=== PATIENT | female | born 1970 | race Caucasian/White ===

== ENCOUNTER → 2017-10-09 | Outpatient (CLI) | payer OTHER, SELFPAY ==
[2017-10-10 09:02] LABS: RUBELLA IgG QUALITATIVE IMMUNE (IMMUNE)
[2017-10-11 08:06] LABS: RUBEOLA IgG ANTIBODY <25.0 AU/mL (Immune >29.9)
== END ==
LOC: M WUC 18:03
DX: Z02.1 Encounter for pre-employment examination (principal)
CPT/HCPCS: 86762

== ENCOUNTER → 2018-05-08 | Outpatient (CLI) | payer OTHER ==
--- NOTE | 2018-05-08 20:02 | REP ---
CHEST, TWO VIEWS: Two views of the chest are performed without priors for comparison. There is no acute infiltrate identified. Possible 1 cm ill-defined nodular density is seen anteriorly and inferiorly on the lateral view. The heart is normal in size and the mediastinal silhouette is unremarkable. Visualized osseous structures are unremarkable. IMPRESSION: No acute infiltrate. Possible nodule anteriorly and inferiorly on the lateral view. Recommend CT of the chest. Electronically Signed by Nehemias Aguilar MD 05/09/2018 12:33 A
== END ==
LOC: M LRY 19:18
PROVIDERS: ATTEND Nurse Practitioner Family
DX: R05 Cough (principal)

== ENCOUNTER → 2018-07-17 | Outpatient (REF) | payer OTHER, MEDICAID ==
[2018-07-17 13:29] LABS: BASO # 0.1 10^3/uL (0.0-0.2); BASO % 0.5 % (0.0-1.0); EOS # 0.2 10^3/uL (0.0-0.50); EOS % 2.6 % (0.0-3.0); HEMOGLOBIN 15.4 g/dl (12.0-15.5); LYMPH # 1.8 10^3/uL (1.5-4.5); MEAN CORPUSCULAR HGB CONC 32.8 g/dl (32.0-36.5); MEAN CORPUSCULAR VOLUME 91.6 fl (80.0-96.0); MONO # 0.7 10^3/uL (0.0-0.8); MONO % 8.1 % (0.0-5.0); NEUTROPHILS # 6.3 10^3/uL (1.8-7.7); NEUTROPHILS % 68.4 % (36.0-66.0); PLATELET COUNT, AUTOMATED 200 10^3/uL (150-450); RED BLOOD COUNT 5.13 10^6/uL (4.00-5.40); WHITE BLOOD COUNT 9.2 10^3/uL (4.0-10.0)
[2018-07-17 13:30] LABS: APPEARANCE, URINE HAZY (CLEAR); BACTERIA, URINE AUTO 1+ (NEGATIVE); BILIRUBIN, URINE AUTO NEGATIVE (NEGATIVE); BLOOD, URINE BLOOD NEGATIVE (NEGATIVE); COLOR, URINE YELLOW (YELLOW); GLUCOSE, URINE (UA) AUTO NEGATIVE (NEGATIVE); KETONE, URINE AUTO NEGATIVE (NEGATIVE); LEUKOCYTE ESTERASE, URINE AUTO NEGATIVE (NEGATIVE); MUCUS, URINE SMALL (NEGATIVE); NITRITE, URINE AUTO NEGATIVE (NEGATIVE); PROTEIN, URINE AUTO NEGATIVE (NEGATIVE); RBC, URINE AUTO 3 /HPF (0-3); SPECIFIC GRAVITY URINE AUTO 1.015 (1.002-1.035); SQUAMOUS EPITHELIAL CELL UR AU 5 /HPF (0-6); UROBILINOGEN, URINE AUTO 0.2 mg/dL (0.0-2.0); WBC, URINE AUTO 1 /HPF (0-3)
[2018-07-17 13:40] LABS: ALBUMIN 4.3 GM/DL (3.2-5.2); ALT/SGPT 29 U/L (12-78); BILIRUBIN,TOTAL 0.5 MG/DL (0.2-1.0); BLOOD UREA NITROGEN 9 MG/DL (7-18); CALCIUM LEVEL 8.8 MG/DL (8.5-10.1); CARBON DIOXIDE LEVEL 27 MEQ/L (21-32); CHLORIDE LEVEL 104 MEQ/L (98-107); CHOLESTEROL LEVEL 320 MG/DL (<200); CHOLESTEROL RISK RATIO 4.571 (<5); FREE T4 0.83 NG/DL (0.76-1.46); GLOMERULAR FILTRATION RATE > 60.0 (>58); GLUCOSE, FASTING 108 MG/DL (70-100); HDL CHOLESTEROL 70 MG/DL (>40); LDL CHOLESTEROL 220 MG/DL (<100); NON-HDL-C 250 MG/DL; POTASSIUM SERUM 3.3 MEQ/L (3.5-5.1); SODIUM LEVEL 136 MEQ/L (136-145); THYROID STIMULATING HORMONE 0.787 uIU/ML (0.358-3.740); TOTAL PROTEIN 7.5 GM/DL (6.4-8.2); TRIGLYCERIDES LEVEL 150 MG/DL (<150)
[2018-07-17 13:41] LABS: TOTAL 25(OH) VITAMIN D 60.8 NG/ML (30.0-100.0)
[2018-07-17 14:15] LABS: HEMOGLOBIN A1c 5.8 %
[2018-07-19 00:06] LABS: Lyme Disease IgG/IgM Antibodie <0.91 ISR (0.00-0.90); Lyme Disease IgM Ab Quantitati <0.80 index (0.00-0.79)
== END ==
LOC: M LAB REF 12:25
PROVIDERS: ATTEND Family Medicine
DX: Z12.11 Encounter for screening for malignant neoplasm of colon (principal)

== ENCOUNTER → 2019-07-15 | Outpatient (REF) ==
[~2019-07-15] MED LIST: CETI-24; DULO1CAP5 PO; FURO20TA2; HYDR50TA70; METH20TA29; MONT10TA10; TIZA4TAB4; ZOFR4TAB16 PO
[2019-07-16 14:16] LABS: RUBEOLA IgG ANTIBODY 13.8 AU/mL (Immune >16.4)
== END ==
LOC: M LAB 14:25
PROVIDERS: ATTEND Nurse Practitioner Adult Health
DX: Z00.00 Encounter for general adult medical examination without abnormal findings (principal)

== ENCOUNTER → 2019-12-01 | Outpatient (REF) | payer OTHER, MEDICAID ==
[2019-12-01 17:40] LABS: FOLLICLE STIMULATING HORMONE 65.3 mIU/mL; LUTEINIZING HORMONE 39.6 mIU/mL; PROGESTERONE 0.21 NG/ML
== END ==
LOC: M LAB REF 15:49
PROVIDERS: ATTEND Physician Assistant
DX: N95.8 Other specified menopausal and perimenopausal disorders (principal); N92.6 Irregular menstruation, unspecified

== ENCOUNTER 2020-03-16 02:26 | Emergency (ER) | payer MEDICAID, OTHER ==
[~2020-03-16] VITALS: Ht 162.6 cm; Wt 71.5 kg
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
--- OUTSIDE RECORDS SUMMARY | 2020-03-16 02:30 | CCD ---
Author Organization Unknown Address [address] [place] [address] Phone [phone] Care Team Providers Care Crime Scene Investigator Name Role Phone Rodreick Winters Unavailable Unavailable Allergies Code Code System Name Reaction Severity Status Onset Duloxetine Hcl Active 10/08/2019 Medications Name Status Start Date Stop Date albuterol sulfate 2.5 mg/3 mL (0.083 %) solution for nebulizatio n Active Not available albuterol sulfate HFA 90 mcg/actuation aerosol inhaler Active Not available azithromycin 250 mg tablet TAKE 1 TABLET BY MOUTH ONCE A DAY Completed 03/12 cetirizine 10 mg tablet TAKE 1 TABLET BY MOUTH DAILY Active Not availa ble Comp-Air Nebulizer Compressor Active No t available dexamethasone 4 mg tablet Completed 2020 doxycycline hyclate 100 mg tablet Completed 03/12/2020 duloxetine 30 mg capsule,delayed release Active Not available duloxetine 60 mg capsule,delayed release Active Not available furosemide 20 mg tablet TAKE ONE TABLET BY MOUTH EVERY DAY Active Not available hydroxyzine HCl 50 mg tablet TAKE TWO TABLETS BY MOUTH ONCE DAILY AT BEDTIME Active Not available Ingrid 03/24 () 1 mg-20 mcg tablet Active Not available levofloxacin 500 mg tablet TAKE ONE TABLET BY MOUTH ONCE DAILY DIRECTED Completed 03/12/2020 methylphenidate 20 mg tablet TAKE ONE TABLET BY MOUTH TWICE A DAY MAXIMUM DAILY DOSE 2 TABLETS Active Not available montelukast 10 mg tablet Active Not adelaida ilable nabumetone 750 mg tablet Active Not adelaida ilable Nicotrol 10 mg inhalation cartridge USE 1 CARTRIDGE UP TO 16 TIMES A DAY NEEDED Active Not available prednisone 20 mg tablet Completed 03/12/19 tizanidine 4 mg tablet TAKE ONE TABLET BY MOUTH EVERY 6 HOURS Active Not available Problems Name Status Onset Date Source [place] [facility] Lung Active 06/25/2018 History Breast Neoplasm Screening Status Active 06/25/2018 History Tobacco Dependence Caused by Cigarettes Active 06/26/19 19 History Screening Procedure Active 06/25/[address] Concept Active 06/25/2018 History Generalized Anxiety Disorder Active 08/01/2018 His tory Attention Deficit Hyperactivity Disorder Active 019 History Allergic Rhinitis Active 10/11/2018 History Asthma Active 10/11/2018 History Hypertensive Disorder Active 07/14/2019 History Fibromyalgia Active 07/14/2019 History Prediabetes Active 07/14/2019 History Tobacco Use and Exposure - Finding Active 07/24/2019 History Exposure to Second Hand Tobacco Smoke Active 07/24/2019 History Heart Murmur Active 08/01/2019 History Body Measurement Finding Active 08/01/2019 History Finding of Regularity of Menstrual Cycle Active 020 History Migraine with Aura Active 08/15/2019 History Pneumonia Caused by gram Positive Bacteria Active 09/30 History Polyalgia Active 10/08/2019 History Dyspnea Active 10/08/2019 History Procedures Notes: tube removal, ankle casting, left ring finger sx, Results Lab Results None recorded. Past Encounters 03/12/2020 Abdominal Pain Isidra Noel, RPA-C: [address] [facility], [facility] [address], [place] [address], Ph. Social History Tobacco Smoking Status Heavy Tobacco Smoker (1/2 PPD) Vaccine List None recorded. Plan of Care Reminders Provider Appointments None recorded. Lab None recorded. Referral None recorded. Procedures None recorded. Surgeries None recorded. Imaging None recorded. Vitals 03/12/2020 09:10AM ESTABLISHED [id number] Height Weight BMI Blood Pressure 64 in 151 lbs 16 oz 26.1 kg/m2 144/90 mm[Hg] 10/08/2019 Height Weight Blood Pressure 64 in 148 lbs 2.08 oz 139/86 mm[Hg] 10/01/2019 Height Weight Blood Pressure 64 in 140 lbs 6.08 oz (1) 157/84 mm[Hg] (2) 155/84 mm[Hg] 08/15/2019 Height Weight Blood Pressure 64 in 136 lbs 6.08 oz (1) 154/98 mm[Hg] (2) 146/101 mm[Hg] 08/01/2019 Height Weight Blood Pressure 64 in 144 lbs 2.08 oz 126/80 mm[Hg] 07/14/2019 Height Weight Blood Pressure 64 in 142 lbs 2.08 oz 147/83 mm[Hg] 10/11/2018 Height Weight Blood Pressure 64 in 148 lbs 145/88 mm[Hg] 06/25/2018 Height Weight Blood Pressure 64 in 151 lbs 2.08 oz 130/77 mm[Hg]
--- OUTSIDE RECORDS SUMMARY | 2020-03-16 02:31 | CCD ---
Author Organization Unknown Address [address] [place] [address] Phone [phone] Care Team Providers Care Glaze Handler Name Role Phone Roderick Winters Unavailable Unavailable Allergies Code Code System [...] ONCE DAILY AT BEDTIME Active Not available Ingrdi 03/24 () 1 mg-20 mcg tablet Active [...] available Problems Name Status Onset Date Source [place] [facility] Lung Active 06/25/2018 History Breast [...] 03/12/2020 Abdominal Pain Isidra Noel, RPA-C: [address] [facility], [facility] [address], [place] [address], Ph. Social History Tobacco Smoking Status Heavy Tobacco Smoker (1/2 PPD) Vaccine List None recorded. Plan of Care Reminders Provider Appointments None recorded. Lab None recorded. Referral None recorded. Procedures None recorded. Surgeries None recorded. Imaging None recorded. Vitals 03/12/2020 09:10AM ESTABLISHED [id number] Height Weight BMI Blood Pressure 64 in [...]
--- OUTSIDE RECORDS SUMMARY | 2020-03-16 02:31 | CCD | Continuity of Care Document ---
Author Author [facility] Organization [facility] Address [address] [place] [address] Phone Care Team Providers Care Agriculture Internship Name Role Phone CANDE OCHOA PCP Allergies, Adverse Reactions, Alerts No allergy information available. Medications No medication information available. Problems No problem information available. Procedures No procedure information available. Relevant Diagnostic Tests and/or Laboratory Data Laboratory Results Test Date/Time Result Interpretation Reference Range Result Co mment Performing Site Coronavirus (COVID-19)(PCR) January 16, 2020 5:09pm NEGATIVE NEGATIVE Negative results should be treated as presumptive and, ifinconsistent with clinical signs and symptoms or necessaryfor patient management, should be tested with differentauthorized or cleared molecular tests.Negative results do not preclude SARS-CoV-2 infection andshould not be used as the sole basis for patient managementdecisions.This is a rapid molecular in vitro diagnostic test utilizingan isothermal nucleic acid amplification technology intendedfor the qualitative detection of nucleic acid from the SARS-CoV-2 viral RNA in direct nasal, nasopharyngeal orthroat swabs from individuals who are suspected of COVID-19.Results are for the indentification of SARS-CoV-2 RNA. [id number] RNA is generally detectable in respiratorysamples during the actue phase of infection. [facility] Main Lab, [address] [facility] [address] Health Concerns No known health concerns documented Chief Complaint and Reason for Visit Reason for Visit SHORTNESS OF BREATH,LOSS OF TASTE Encounters Encounter Location(s) Arrival/Admit Date Discharge/Depart Date Provider(s) [facility] January 16, 2020 5:04p m January 16, 2020 6:29pm LANCE MARSHALL [facility] December 13, 2019 6:27am December 13, 2019 7:00am ELVIE DORMAN JR Assessments No Assessments Information Available Functional Status No Functional Status information available Goals No Goals Information Available Immunizations No Immunization Information Available Mental Status No Mental Status Information Available Medical Equipment No Medical Equipment Information available Insurance Providers Guarantor MARIA G LEWIS Address [address] [place] [address] Contact Info. Home Phone: Payer Policy Id Coverage Id Subscriber's Name Subscriber Id Effect haris Date Expiration Date [employer] MEDICAID [id number] MARIA G LEWIS Social History Assigned Sex Female Vital Signs No vital signs result information available.
--- OUTSIDE RECORDS SUMMARY | 2020-03-16 02:31 | CCD | Continuity of Care Document ---
Author Author [facility] Address [address] [place] [address] Phone Care Team Providers Care Analysis Engineer Name Role Phone CANDE OCHOA PCP Allergies, Adverse Reactions, Alerts No allergy information available. Medications No medication information available. Problems No problem information available. Procedures Procedure Date Performed Status ABDOMEN LIMITED March 12, 2020 completed Relevant Diagnostic Tests and/or Laboratory Data Laboratory Results Test Date/Time Result Interpretation Reference Range Result Co mment Performing Site White Blood Count March 12, 2020 6:46am 10.4 4.0-10. 0 [facility] Main Lab, [address] [place] [address] Red Blood Count March 12, 2020 6:46am 4.44 4.00-5.50 [facility] Main Lab, [address] [place] [address] Hemoglobin March 12, 2020 6:46am 12.5 12.0-16.0 [facility] Main Lab, [address] [place] [address] Hematocrit March 12, 2020 6:46am 38.9 36.0-48.8 [facility] Main Lab, [address] [place] [address] Mean Corpuscular Volume March 12, 2020 6:46am 87.6 8 0-96 [facility] Main Lab, [address] [place] [address] Mean Corpuscular Hemoglobin March 12, 2020 6:46am 28.2 27.0-31.0 [facility], [address] [place] [address] Mean Corpuscular Hgb Concent Diff March 12, 2020 6:46am 32.1 32.0-36.0 [facility] Main Lab, [address] [facility] [address] Red Cell Distribution Width March 12, 2020 6:46am 14.9 10.0-14.5 [facility] Main Lab, [address] [facility] [address] Platelet Count March 12, 2020 6:46am 236 172-450 [facility] Main Lab, [address] [facility] [address] Mean Platelet Volume March 12, 2020 6:46am 10.7 9.0- 13.0 [facility] Main Lab, [address] [facility] [address] Granulocytes % (Auto) March 12, 2020 6:46am 57.1 50- 80.0 [facility] Main Lab, [address] [address] Immature Granulocytes % March 12, 2020 6:46am 0.2 0 .0-0.2 [facility] Main Lab, [address] [facility] [address] Lymphocytes % March 12, 2020 6:46am 32.1 25.0-50.0 [facility] Main Lab, [address] [facility] [address] Monocytes % March 12, 2020 6:46am 8.3 2.0-10.0 [facility] Main Lab, [address] [facility] [address] Eosinophils % March 12, 2020 6:46am 2.0 0-5.0 [facility] Main [facility], [address] [facility] [address] Basophils % March 12, 2020 6:46am 0.3 0.0-2.0 [facility], [address] [facility] [address] Granulocytes # March 12, 2020 6:46am 6.0 2.0-8.00 [facility] Main [facility], [address] [facility] [address] Immature Granulocytes # March 12, 2020 6:46am 0.0 0 .0-0.2 [facility], [address] [facility] [address] Lymphocytes # March 12, 2020 6:46am 3.3 1.0-5.0 [facility], [address] [facility] [address] Monocytes # March 12, 2020 6:46am 0.9 0.10-1.20 [facility], [address] [facility] [address] Eosinophils # March 12, 2020 6:46am 0.2 0.0-0.5 [facility], [address] [facility] [address] Basophils # March 12, 2020 6:46am 0.0 0.0-0.2 [facility], [address] [facility] [address] Urine Color March 12, 2020 7:20am YELLOW [facility] Lab, [address] [facility] [address] Urine Appearance March 12, 2020 7:20am CLEAR [facility] Lab, [address] [facility] [address] Urine Glucose March 12, 2020 7:20am NEGATIVE NEGATIVE [facility], [address] [facility] [address] Urine Bilirubin March 12, 2020 7:20am NEGATIVE NEGATIVE [facility] Lab, [address] [place] [address] Urine Ketones March 12, 2020 7:20am NEGATIVE NEGATIVE [facility], [address] [place] [address] Specific [place] March 12, 2020 7:20am 1.010 1.001-1. 035 [facility], [address] [place] [address] Urine Blood March 12, 2020 7:20am TRACE NEGATIVE [facility], [address] [place] [address] Urine pH March 12, 2020 7:20am 6.0 5.0-9.0 [facility], [address] [place] [address] Urine Protein March 12, 2020 7:20am NEGATIVE NEGATIVE [facility], [address] [place] [address] Urine Urobilinogen March 12, 2020 7:20am NORMAL(0.2-1) 0- 1 [facility], [address] [place] [address] Urine Nitrite March 12, 2020 7:20am NEGATIVE NEGATIVE [facility], [address] [place] [address] Urine Leukocyte Esterase March 12, 2020 7:20am NEGATIVE NEGATIVE [facility] Lab, [address] [place] [address] Urine Microscopic RBC March 12, 2020 7:20am 0-2 0-3 [facility], [address] [facility] [address] Urine Microscopic WBC March 12, 2020 7:20am 0-2 0-5 [facility], [address] [facility] [address] Urine Epithelial Cells March 12, 2020 7:20am 3+ 0 [facility], [address] [facility] [address] Glucose Level March 12, 2020 6:46am 107 74-106 [facility], [address] [facility] [address] Lactic Acid Level March 12, 2020 6:46am 1.1 0.4-2.0 [facility], [address] [facility] [address] Blood Urea Nitrogen March 12, 2020 6:46am 14 7-18 [facility], [address] [facility] [address] Creatinine March 12, 2020 6:46am 0.80 0.6-1.0 [facility], [address] [facility] [address] Sodium Level March 12, 2020 6:46am 141 136-145 [facility], [address] [facility] [address] Potassium Level March 12, 2020 6:46am 3.8 3.5-5.1 [facility], [address] [facility] [address] Chloride Level March 12, 2020 6:46am 101 98-107 [facility], [address] [facility] [address] Carbon Dioxide Level March 12, 2020 6:46am 28 21-3 2 [facility], [address] [facility] [address] Calcium Level March 12, 2020 6:46am 8.9 8.5-10.1 [facility], [address] [facility] [address] Anion Gap March 12, 2020 6:46am 12.0 5-12 [facility], [address] [facility] [address] Estimated GFR (MDRD) March 12, 2020 6:46am 76 GFR IS CALCULATED IN mL/min/1.73m2 NORMAL FUNCTION: >90MILDLY DECREASED: 60-89MILDY TO MODERATELY DECREASED: 45-59 MODERATELY TO SEVERELY DECREASED: 30-44SEVERELY DECREASED: 15-29RENAL FAILURE: <15 [facility] Lab, [address] [address] Aspartate Amino Transf (AST/SGOT) March 12, 2020 6:46am 33 15-37 [facility] Lab, [address] [place] [address] Alanine Aminotransferase (ALT/SGPT) March 12, 2020 6:46am 37 12-78 [facility], [address] [place] [address] Alkaline Phosphatase March 12, 2020 6:46am 123 46-1 16 [facility], [address] [place] [address] Total Bilirubin March 12, 2020 6:46am 0.5 0.2-1.0 [facility], [address] [address] Total Protein March 12, 2020 6:46am 7.1 6.4-8.2 [facility] Lab, [address] [place] [address] Albumin March 12, 2020 6:46am 3.9 3.4-5.0 [facility], [address] [place] [address] Lipase March 12, 2020 6:46am 106 73-393 [facility], [address] [address] Troponin I March 12, 2020 6:46am < 0.017 0.0-0.056 [facility], [address] [place] [address] Coronavirus (COVID-19)(PCR) March 12, 2020 8:14am NEGATIVE NEGATIVE Negative results should be treated [...] are for the indentification of SARS-CoV-2 RNA. [id number] RNA is generally detectable in respiratorysamples during the actue phase of infection. [facility] Lab, [address] [address] Health Concerns No known health concerns documented Chief Complaint and Reason for Visit Reason for Visit ABDOMINAL PAIN,NAUSEA Encounters Encounter Location(s) Arrival/Admit Date Discharge/Depart Date Provider(s) [facility] March 12, 2020 6:04am March 12, 2020 12:00pm TIARA MYERS [facility] January 16, 2020 5:04p m January 16, 2020 6:29pm LANCE MARSHALL [facility] December 13, 2019 6:27am December 13, 2019 7:00am ELVIE DORMAN JR Assessments No Assessments Information Available Functional Status No Functional Status information available Goals No Goals Information Available Immunizations No Immunization Information Available Mental Status No Mental Status Information Available Medical Equipment No Medical Equipment Information available Insurance Providers Guarantor MARIA G LEWIS Address [address] [place] [address] Contact Info. Home Phone: Payer Policy Id Coverage Id Subscriber's Name Subscriber Id Effect haris Date Expiration Date [employer] MEDICAID [id number] MARIA G LEWIS Social History Assigned Sex Female Vital Signs No vital signs result information available.
--- OUTSIDE RECORDS SUMMARY | 2020-03-16 02:32 | CCD ---
Author Author [facility] Organization [facility] Address Unknown Phone Unavailable Care Team Providers Care Cake Wringer Name Role Phone PETROFF, TIARA PA Unavailable Unavailable PETROFF, TIARA PA Unavailable Unavailable PETROFF, TIARA PA Unavailable Unavailable PETROFF, TIARA PA Unavailable Unavailable PETROFF, TIARA PA Unavailable Unavailable PETROFF, TIARA PA Unavailable Unavailable PETROFF, TIARA PA Unavailable Unavailable PETROFF, TIARA PA Unavailable Unavailable SYMENOW, G CHRISTOPHER PA Unavailable Unavailable SYMENOW, G CHRISTOPHER PA Unavailable Unavailable SYMENOW, G CHRISTOPHER PA Unavailable Unavailable SYMENOW, G CHRISTOPHER PA Unavailable Unavailable SYMENOW, G CHRISTOPHER PA Unavailable Unavailable SYMENOW, G CHRISTOPHER PA Unavailable Unavailable SYMENOW, G CHRISTOPHER PA Unavailable Unavailable SYMENOW, G CHRISTOPHER PA Unavailable Unavailable SYMENOW, G CHRISTOPHER PA Unavailable Unavailable SYMENOW, G CHRISTOPHER PA Unavailable Unavailable SYMENOW, G CHRISTOPHER PA Unavailable Unavailable SYMENOW, G CHRISTOPHER PA Unavailable Unavailable SYMENOW, G CHRISTOPHER PA Unavailable Unavailable SYMENOW, G CHRISTOPHER PA Unavailable Unavailable SYMENOW, G CHRISTOPHER PA Unavailable Unavailable SYMENOW, G CHRISTOPHER PA Unavailable Unavailable SYMENOW, G CHRISTOPHER PA Unavailable Unavailable THOMPSONKATHERIN RPA-C Unavailable Unavailable THOMPSONKATHERIN RPA-C Unavailable Unavailable THOMPSON, KATHERIN RUBIO RPA-C Unavailable Unavailable THOMPSON, KATHERIN RUBIO RPA-C Unavailable Unavailable THOMPSON, KATHERIN RUBIO RPA-C Unavailable Unavailable THOMPSON, KATHERIN RUBIO RPA-C Unavailable Unavailable THOMPSON, KATHERIN RUBIO RPA-C Unavailable Unavailable THOMPSON, KATHERIN RUBIO RPA-C Unavailable Unavailable THOMPSON, KATHERIN RUBIO RPA-C Unavailable Unavailable THOMPSON, KATHERIN RUBIO RPA-C Unavailable Unavailable THOMPSON, KATHERIN RUBIO RPA-C Unavailable Unavailable THOMPSON, KATHERIN RUBIO RPA-C Unavailable Unavailable THOMPSON, KATHERIN RUBIO RPA-C Unavailable Unavailable THOMPSON, KATHERIN RUBIO RPA-C Unavailable Unavailable THOMPSON, KATHERIN RUBIO RPA-C Unavailable Unavailable THOMPSON, KATHERIN RUBIO RPA-C Unavailable Unavailable THOMPSON, KATHERIN RUBIO RPA-C Unavailable Unavailable THOMPSON, KATHERIN RUBIO RPA-C Unavailable Unavailable THOMPSON, KATHERIN RUBIO RPA-C Unavailable Unavailable THOMPSON, KATHERIN RUBIO RPA-C Unavailable Unavailable THOMPSON, KATHERIN RUBIO RPA-C Unavailable Unavailable THOMPSON, KATHERIN RUBIO RPA-C Unavailable Unavailable THOMPSON, KATHERIN RUBIO RPA-C Unavailable Unavailable THOMPSON, KATHERIN RUBIO RPA-C Unavailable Unavailable THOMPSON, KATHERIN RUBIO RPA-C Unavailable Unavailable THOMPSON, KATHERIN RUBIO RPA-C Unavailable Unavailable THOMPSON, KATHERIN RUBIO RPA-C Unavailable Unavailable THOMPSON, KATHERIN RUBIO RPA-C Unavailable Unavailable THOMPSON, KATHERIN RUBIO RPA-C Unavailable Unavailable THOMPSON, KATHERIN RUBIO RPA-C Unavailable Unavailable THOMPSON, KATHERIN RUBIO RPA-C Unavailable Unavailable THOMPSON, KATHERIN RUBIO RPA-C Unavailable Unavailable THOMPSON, KATHERIN RUBIO RPA-C Unavailable Unavailable THOMPSON, KATHERIN RUBIO RPA-C Unavailable Unavailable THOMPSON, KATHERIN RUBIO RPA-C Unavailable Unavailable THOMPSON, KATHERIN RUBIO RPA-C Unavailable Unavailable THOMPSON, KATHERIN RUBIO RPA-C Unavailable Unavailable THOMPSON, KATHERIN RUBIO RPA-C Unavailable Unavailable DANIELA, L LUCIANO PA Unavailable Unavailable DANIELA, L LUCIANO PA Unavailable Unavailable DANIELA, L LUCIANO PA Unavailable Unavailable DANIELA, L LUCIANO PA Unavailable Unavailable DANIELA, L LUCIANO PA Unavailable Unavailable DANIELA, L LUCIANO PA Unavailable Unavailable DANIELA, L LUCIANO PA Unavailable Unavailable DANIELA, L LUCIANO PA Unavailable Unavailable DANIELA, L LUCIANO PA Unavailable Unavailable DANIELA, L LUCIANO PA Unavailable Unavailable DANIELA, L LUCIANO PA Unavailable Unavailable DANIELA, L LUCIANO PA Unavailable Unavailable DANIELA, L LUCIANO PA Unavailable Unavailable DANIELA, L LUCIANO PA Unavailable Unavailable DANIELA, L LUCIANO PA Unavailable Unavailable DANIELA, L LUCIANO PA Unavailable Unavailable DANIELA, L LUCIANO PA Unavailable Unavailable DANIELA, L LUCIANO PA Unavailable Unavailable DANIELA, L LUCIANO PA Unavailable Unavailable BLAKE, KRYSTIN PA Unavailable Unavailable BLAKE, KRYSTIN PA Unavailable Unavailable BLAKE, KRYSTIN PA Unavailable Unavailable BLAKE, KRYSTIN PA Unavailable Unavailable BLAKE, KRYSTIN PA Unavailable Unavailable BLAKE, KRYSTIN PA Unavailable Unavailable BLAKE, KRYSTIN PA Unavailable Unavailable BLAKE, KRYSTIN PA Unavailable Unavailable BLAKE, KRYSTIN PA Unavailable Unavailable BLAKE, KRYSTIN PA Unavailable Unavailable BLAKE, KRYSTIN PA Unavailable Unavailable BLAKE, KRYSTIN PA Unavailable Unavailable BLAKE, KRYSTIN PA Unavailable Unavailable BLAKE, KRYSTIN PA Unavailable Unavailable BLAKE, KRYSTIN PA Unavailable Unavailable ROLANDO, LUCIA LANCE PA Unavailable Unavailable ROLANDO, LUCIA LANCE PA Unavailable Unavailable ROLANDO, LUCIA LANCE PA Unavailable Unavailable ROLANDO, LUCIA LANCE PA Unavailable Unavailable ROLANDO, LUCIA LANCE PA Unavailable Unavailable ROLANDO, LUCIA LANCE PA Unavailable Unavailable ROLANDO, LUCIA LANCE PA Unavailable Unavailable ROLANDO, LUCIA LANCE PA Unavailable Unavailable ROLANDO, LUCIA LANCE PA Unavailable Unavailable ROLANDO, LUCIA LANCE PA Unavailable Unavailable ROLANDO, LUCIA LANCE PA Unavailable Unavailable ROLANDO, LUCIA LANCE PA Unavailable Unavailable ROLANDO, LUCIA LANCE PA Unavailable Unavailable ROLANDO, LUCIA LANCE PA Unavailable Unavailable ROLANDO, LUCIA LANCE PA Unavailable Unavailable ROLANDO, LUCIA LANCE PA Unavailable Unavailable ROLANDO, LUCIA LANCE PA Unavailable Unavailable ROLANDO, LUCIA LANCE PA Unavailable Unavailable ROLANDO, LUCIA LANCE PA Unavailable Unavailable ROLANDO, LUCIA LANCE PA Unavailable Unavailable ROLANDO, LUCIA LANCE PA Unavailable Unavailable LETTIERE, A NENO PA Unavailable Unavailable LETTIERE, A NENO PA Unavailable Unavailable LETTIERE, A NENO PA Unavailable Unavailable LETTIERE, A NENO PA Unavailable Unavailable LETTIERE, A NENO PA Unavailable Unavailable LETTIERE, A NENO PA Unavailable Unavailable LETTIERE, A NENO PA Unavailable Unavailable LETTIERE, A NENO PA Unavailable Unavailable LETTIERE, A NENO PA Unavailable Unavailable LETTIERE, A NENO PA Unavailable Unavailable LETTIERE, A NENO PA Unavailable Unavailable LETTIERE, A NENO PA Unavailable Unavailable LETTIERE, A NENO PA Unavailable Unavailable LETTIERE, A NENO PA Unavailable Unavailable LETTIERE, A NENO PA Unavailable Unavailable LETTIERE, A NENO PA Unavailable Unavailable LETTIERE, A NENO PA Unavailable Unavailable LETTIERE, A NENO PA Unavailable Unavailable LETTIERE, A NENO PA Unavailable Unavailable LETTIERE, A NENO PA Unavailable Unavailable LETTIERE, A NENO PA Unavailable Unavailable LETTIERE, A NENO PA Unavailable Unavailable LETTIERE, A NENO PA Unavailable Unavailable LETTIERE, A NENO PA Unavailable Unavailable LETTIERE, A NENO PA Unavailable Unavailable LETTIERE, A NENO PA Unavailable Unavailable LETTIERE, A NENO PA Unavailable Unavailable LETTIERE, A NENO PA Unavailable Unavailable LETTIERE, A NENO PA Unavailable Unavailable THOMPSON, KATHERIN RUBIO RPA-C Unavailable Unavailable THOMPSON, KATHERIN RUBIO RPA-C Unavailable Unavailable THOMPSON, KATHERIN RUBIO RPA-C Unavailable Unavailable THOMPSON, KATHERIN RUBIO RPA-C Unavailable Unavailable THOMPSON, KATHERIN RUBIO RPA-C Unavailable Unavailable THOMPSON, KATHERIN RUBIO RPA-C Unavailable Unavailable THOMPSON, KATHERIN RUBIO RPA-C Unavailable Unavailable THOMPSON, KATHERIN RUBIO RPA-C Unavailable Unavailable THOMPSON, KATHERIN RUBIO RPA-C Unavailable Unavailable THOMPSON, KATHERIN RUBIO RPA-C Unavailable Unavailable THOMPSON, KATHERIN RUBIO RPA-C Unavailable Unavailable THOMPSON, KATHERIN RUBIO RPA-C Unavailable Unavailable THOMPSON, KATHERIN RUBIO RPA-C Unavailable Unavailable THOMPSON, KATHERIN RUBIO RPA-C Unavailable Unavailable THOMPSON, KATHERIN RUBIO RPA-C Unavailable Unavailable THOMPSON, KATHERIN RUBIO RPA-C Unavailable Unavailable THOMPSON, KATHERIN RUBIO RPA-C Unavailable Unavailable THOMPSON, KATHERIN RUBIO RPA-C Unavailable Unavailable THOMPSON, KATHERIN RUBIO RPA-C Unavailable Unavailable THOMPSON, KATHERIN RUBIO RPA-C Unavailable Unavailable THOMPSON, KATHERIN RUBIO RPA-C Unavailable Unavailable THOMPSON, KATHERIN RUBIO RPA-C Unavailable Unavailable THOMPSON, KATHERIN RUBIO RPA-C Unavailable Unavailable THOMPSON, KATHERIN RUBIO RPA-C Unavailable Unavailable THOMPSON, KATHERIN RUBIO RPA-C Unavailable Unavailable THOMPSON, KATHERIN RUBIO RPA-C Unavailable Unavailable THOMPSON, KATHERIN RUBIO RPA-C Unavailable Unavailable THOMPSON, KATHERIN RUBIO RPA-C Unavailable Unavailable THOMPSON, KATHERIN RUBIO RPA-C Unavailable Unavailable THOMPSON, KATHERIN RUBIO RPA-C Unavailable Unavailable THOMPSON, KATHERIN RUBIO RPA-C Unavailable Unavailable THOMPSON, KATHERIN RUBIO RPA-C Unavailable Unavailable THOMPSON, KATHERIN RUBIO RPA-C Unavailable Unavailable THOMPSON, KATHERIN RUBIO RPA-C Unavailable Unavailable THOMPSON, KATHERIN RUBIO RPA-C Unavailable Unavailable THOMPSON, KATHERIN RUBIO RPA-C Unavailable Unavailable THOMPSON, KATHERIN RUBIO RPA-C Unavailable Unavailable THOMPSON, KATHERIN RUBIO RPA-C Unavailable Unavailable ZUKER, B YAIR MD Unavailable Unavailable ZUKER, B YAIR MD Unavailable Unavailable ZUKER, B YAIR MD Unavailable Unavailable ZUKER, B YAIR MD Unavailable Unavailable ZUKER, B YAIR MD Unavailable Unavailable ZUKER, B YAIR MD Unavailable Unavailable ZUKER, B YAIR MD Unavailable Unavailable ZUKER, B YAIR MD Unavailable Unavailable ZUKER, B YAIR MD Unavailable Unavailable ZUKER, B YAIR MD Unavailable Unavailable ZUKER, B YAIR MD Unavailable Unavailable ZUKER, B YAIR MD Unavailable Unavailable ZUKER, B YAIR MD Unavailable Unavailable ZUKER, B YAIR MD Unavailable Unavailable ZUKER, B YAIR MD Unavailable Unavailable Bryant, L Vera ELECTROMECHANICAL EQUIPMENT TESTER Unavailable Unavailable Bryant, L Vera ELECTROMECHANICAL EQUIPMENT TESTER Unavailable Unavailable Sunol, L Vera ELECTROMECHANICAL EQUIPMENT TESTER Unavailable Unavailable Bryant, L Vera ELECTROMECHANICAL EQUIPMENT TESTER Unavailable Unavailable Bryant, L Vera ELECTROMECHANICAL EQUIPMENT TESTER Unavailable Unavailable Bryant, L Vera ELECTROMECHANICAL EQUIPMENT TESTER Unavailable Unavailable Bryant, L Vera ELECTROMECHANICAL EQUIPMENT TESTER Unavailable Unavailable Sunol, L Vera ELECTROMECHANICAL EQUIPMENT TESTER Unavailable Unavailable Sunol, L Vera ELECTROMECHANICAL EQUIPMENT TESTER Unavailable Unavailable Bryant, L Vera ELECTROMECHANICAL EQUIPMENT TESTER Unavailable Unavailable Bryant, L Vera ELECTROMECHANICAL EQUIPMENT TESTER Unavailable Unavailable Sunol, L Vera ELECTROMECHANICAL EQUIPMENT TESTER Unavailable Unavailable Bryant, L Vera ELECTROMECHANICAL EQUIPMENT TESTER Unavailable Unavailable Sunol, L Vera ELECTROMECHANICAL EQUIPMENT TESTER Unavailable Unavailable Sunol, L Vera ELECTROMECHANICAL EQUIPMENT TESTER Unavailable Unavailable Sunol, L Vera ELECTROMECHANICAL EQUIPMENT TESTER Unavailable Unavailable Sunol, L Vera ELECTROMECHANICAL EQUIPMENT TESTER Unavailable Unavailable Bryant, L Vera ELECTROMECHANICAL EQUIPMENT TESTER Unavailable Unavailable Sunol, L Vera ELECTROMECHANICAL EQUIPMENT TESTER Unavailable Unavailable Bryant, L Vera ELECTROMECHANICAL EQUIPMENT TESTER Unavailable Unavailable Sunol, L Vera ELECTROMECHANICAL EQUIPMENT TESTER Unavailable Unavailable Sunol, L Vera ELECTROMECHANICAL EQUIPMENT TESTER Unavailable Unavailable Sunol, L Vera ELECTROMECHANICAL EQUIPMENT TESTER Unavailable Unavailable Bryant, L Vera ELECTROMECHANICAL EQUIPMENT TESTER Unavailable Unavailable Sunol, L Vera ELECTROMECHANICAL EQUIPMENT TESTER Unavailable Unavailable Bryant, L Vera ELECTROMECHANICAL EQUIPMENT TESTER Unavailable Unavailable Sunol, L Vera ELECTROMECHANICAL EQUIPMENT TESTER Unavailable Unavailable Sunol, L Vera ELECTROMECHANICAL EQUIPMENT TESTER Unavailable Unavailable Bryant, L Evra ELECTROMECHANICAL EQUIPMENT TESTER Unavailable Unavailable Bryant, L Vera ELECTROMECHANICAL EQUIPMENT TESTER Unavailable Unavailable Sunol, L Vera ELECTROMECHANICAL EQUIPMENT TESTER Unavailable Unavailable Anel Redd MD Unavailable Unavailable Anel Redd MD Unavailable Unavailable Anel Redd MD Unavailable Unavailable Anel Redd MD Unavailable Unavailable Anel Redd MD Unavailable Unavailable Anel Redd MD Unavailable Unavailable Anel Redd MD Unavailable Unavailable Anel Redd MD Unavailable Unavailable Anel Redd MD Unavailable Unavailable Anel Redd MD Unavailable Unavailable Anel Redd MD Unavailable Unavailable Anel Redd MD Unavailable Unavailable Anel Redd MD Unavailable Unavailable Anel Redd MD Unavailable Unavailable Anel Redd MD Unavailable Unavailable Anel Redd MD Unavailable Unavailable Anel Rded MD Unavailable Unavailable Anel Redd MD Unavailable Unavailable Anel Redd MD Unavailable Unavailable Anel Redd MD Unavailable Unavailable Anel Redd MD Unavailable Unavailable Anel Redd MD Unavailable Unavailable Anel Redd MD Unavailable Unavailable Anel Redd MD Unavailable Unavailable Anel Redd MD Unavailable Unavailable Anel Redd MD Unavailable Unavailable Anel Redd MD Unavailable Unavailable Anel Redd MD Unavailable Unavailable Anel Redd MD Unavailable Unavailable Anel Redd MD Unavailable Unavailable Anel Redd MD Unavailable Unavailable Anel Redd MD Unavailable Unavailable Anel Redd MD Unavailable Unavailable Anel Redd MD Unavailable Unavailable Anel Redd MD Unavailable Unavailable Anel Redd MD Unavailable Unavailable Anel Redd MD Unavailable Unavailable Anel Redd MD Unavailable Unavailable Anel Redd MD Unavailable Unavailable Anel Redd MD Unavailable Unavailable Anel Redd MD Unavailable Unavailable Anel Redd MD Unavailable Unavailable Anel Redd MD Unavailable Unavailable Anel Redd MD Unavailable Unavailable Anel Redd MD Unavailable Unavailable Anel Redd MD Unavailable Unavailable Anel Redd MD Unavailable Unavailable Anel Redd MD Unavailable Unavailable Anel Redd MD Unavailable Unavailable Anel Redd MD Unavailable Unavailable Anel Redd MD Unavailable Unavailable Anel Redd MD Unavailable Unavailable Anel Redd MD Unavailable Unavailable Anel Redd MD Unavailable Unavailable Anel Redd MD Unavailable Unavailable Anel Redd MD Unavailable Unavailable YUDI MAHONEY JR Unavailable Unavailable CASTANEDA, ISIDRA Unavailable Unavailable CASTANEDA, ISIDRA Unavailable Unavailable CASTANEDA, ISIDRA Unavailable Unavailable CASTANEDA, ISIDRA Unavailable Unavailable CASTANEDA, ISIDRA Unavailable Unavailable CASTANEDA, ISIDRA Unavailable Unavailable CASTANEDA, ISIDRA Unavailable Unavailable CASTANEDA, ISIDRA Unavailable Unavailable CASTANEDA, ISIDRA Unavailable Unavailable CASTANEDA, ISIDRA Unavailable Unavailable CASTANEDA, ISIDRA Unavailable Unavailable CASTANEDA, ISIDRA Unavailable Unavailable CASTANEDA, ISIDRA Unavailable Unavailable CASTANEDA, ISIDRA Unavailable Unavailable CASTANEDA, ISIDRA Unavailable Unavailable CASTANEDA, ISIDRA Unavailable Unavailable CASTANEDA, ISIDRA Unavailable Unavailable CASTANEDA, ISIDRA Unavailable Unavailable CASTANEDA, ISIDRA Unavailable Unavailable CASTANEDA, ISIDRA Unavailable Unavailable CASTANEDA, ISIDRA Unavailable Unavailable CASTANEDA, ISIDRA Unavailable Unavailable CASTANEDA, ISIDRA Unavailable Unavailable CASTANEDA, ISIDRA Unavailable Unavailable CASTANEDA, ISIDRA Unavailable Unavailable Darron ARAGON MD Unavailable Unavailable Darron ARAGON MD Unavailable Unavailable Darron ARAGON MD Unavailable Unavailable Darron ARAGON MD Unavailable Unavailable Darron ARAGON MD Unavailable Unavailable Darron ARAGON MD Unavailable Unavailable Darron ARAGON MD Unavailable Unavailable Darron ARAGON MD Unavailable Unavailable Darron ARAGON MD Unavailable Unavailable Darron ARAGON MD Unavailable Unavailable Darron ARAGON MD Unavailable Unavailable Darron ARAGON MD Unavailable Unavailable Darron ARAGON MD Unavailable Unavailable Darron ARAGON MD Unavailable Unavailable Darron ARGAON MD Unavailable Unavailable Darron ARAGON MD Unavailable Unavailable Darron ARAGON MD Unavailable Unavailable Darron ARAGON MD Unavailable Unavailable Darron ARAGON MD Unavailable Unavailable Darron ARAGON MD Unavailable Unavailable Darron ARAGON MD Unavailable Unavailable Darron ARAGON MD Unavailable Unavailable Darron ARAGON MD Unavailable Unavailable Darron ARAGON MD Unavailable Unavailable Darron ARAGON MD Unavailable Unavailable Darron ARAGON MD Unavailable Unavailable Darron ARAGON MD Unavailable Unavailable Darron ARAGON MD Unavailable Unavailable Darron ARAGON MD Unavailable Unavailable Darron ARAGON MD Unavailable Unavailable Darron ARAGON MD Unavailable Unavailable Darron ARAGON MD Unavailable Unavailable Darron ARAGON MD Unavailable Unavailable Darron ARAGON MD Unavailable Unavailable Darron ARAGON MD Unavailable Unavailable Darron ARAGON MD Unavailable Unavailable Darron ARAGON MD Unavailable Unavailable Darron ARAGON MD Unavailable Unavailable Darron ARAGON MD Unavailable Unavailable Darron ARAGON MD Unavailable Unavailable Darron ARAGON MD Unavailable Unavailable Darron ARAGON MD Unavailable Unavailable Darron ARAGON MD Unavailable Unavailable Darron ARAGON MD Unavailable Unavailable Darron ARAGON MD Unavailable Unavailable Darron ARAGON MD Unavailable Unavailable Darron ARAGON MD Unavailable Unavailable Darron ARAGON MD Unavailable Unavailable Darron ARAGON MD Unavailable Unavailable Darron ARAGON MD Unavailable Unavailable Darron ARAGON MD Unavailable Unavailable Darron ARAGON MD Unavailable Unavailable Darron ARAGON MD Unavailable Unavailable Darron ARAGON MD Unavailable Unavailable Darron ARAGON MD Unavailable Unavailable Darron ARAGON MD Unavailable Unavailable Darron ARAGON MD Unavailable Unavailable Darron ARAGON MD Unavailable Unavailable Darron ARAGON MD Unavailable Unavailable Darron ARAGON MD Unavailable Unavailable Darron ARAGON MD Unavailable Unavailable Darron ARAGON MD Unavailable Unavailable Darron ARAGON MD Unavailable Unavailable Darron ARAGON MD Unavailable Unavailable Darron ARAGON MD Unavailable Unavailable Darron ARAGON MD Unavailable Unavailable Darron ARAGON MD Unavailable Unavailable Darron ARAGON MD Unavailable Unavailable Darron ARAGON MD Unavailable Unavailable Darron ARAGON MD Unavailable Unavailable Darron ARAGON MD Unavailable Unavailable Darron ARAGON MD Unavailable Unavailable Darron ARAGON MD Unavailable Unavailable Darron ARAGON MD Unavailable Unavailable Darron ARAGON MD Unavailable Unavailable MAHESH, Darron LOWERY MD Unavailable Unavailable MAHESH, T BEVERLEY BUCHANAN Unavailable Unavailable MAHESH, T BEVERLEY BUCHANAN Unavailable Unavailable MAHESH, T BEVERLEY BUCHANAN Unavailable Unavailable MAHESH, T BEVERLEY BUCHANAN Unavailable Unavailable MAHESH, T BEVERLEY BUCHANAN Unavailable Unavailable MAHESH, T BEVERLEY BUCHANAN Unavailable Unavailable MAHESH, T BEVERLEY BUCHANAN Unavailable Unavailable DICKSTEIN, E ERIK MD Unavailable Unavailable DICKSTEIN, E ROSS MD Unavailable Unavailable DICKSTEIN, E ROSS MD Unavailable Unavailable DICKSTEIN, E ROSS MD Unavailable Unavailable DICKSTEIN, E ROSS MD Unavailable Unavailable DICKSTEIN, E ROSS MD Unavailable Unavailable DICKSTEIN, E ROSS MD Unavailable Unavailable DICKSTEIN, E ROSS MD Unavailable Unavailable DICKSTEIN, E ROSS MD Unavailable Unavailable DICKSTEIN, E ROSS MD Unavailable Unavailable DICKSTEIN, E ROSS MD Unavailable Unavailable DICKSTEIN, E ROSS MD Unavailable Unavailable DICKSTEIN, E ROSS MD Unavailable Unavailable DICKSTEIN, E ROSS MD Unavailable Unavailable DICKSTEIN, E ROSS MD Unavailable Unavailable DICKSTEIN, E ROSS MD Unavailable Unavailable DICKSTEIN, E ROSS MD Unavailable Unavailable DICKSTEIN, E ROSS MD Unavailable Unavailable DICKSTEIN, E ROSS MD Unavailable Unavailable DICKSTEIN, E ROSS MD Unavailable Unavailable [facility], RFROST THOMPSON AKIN BERGERON Unavailable Unavailable Re-disclosure Warning The records that you are about to access may contain information from federally-assisted alcohol or drug abuse programs. If such information is present, then the following federally mandated warning applies: This information has been disclosed to you from records protected by federal confidentiality rules (42 CFR part 2). The federal rules prohibit you from making any further disclosure of this information unless further disclosure is expressly permitted by the written consent of the person to whom it pertains or as otherwise permitted by 42 CFR part 2. A general authorization for the release of medical or other information is NOT sufficient for this purpose. The Federal rules restrict any use of the information to criminally investigate or prosecute any alcohol or drug abuse patient.The records that you are about to access may contain highly sensitive health information, the redisclosure of which is protected by Article 27-F of the [facility] Public Health law. If you continue you may have access to information: Regarding HIV / AIDS; Provided by facilities licensed or operated by the [facility] Office of Mental Health; or Provided by the [facility] Office for People With Developmental Disabilities. If such information is present, then the following [facility] mandated warning applies: This information has been disclosed to you from confidential records which are protected by state law. State law prohibits you from making any further disclosure of this information without the specific written consent of the person to whom it pertains, or as otherwise permitted by law. Any unauthorized further disclosure in violation of state law may result in a fine or usp sentence or both. A general authorization for the release of medical or other information is NOT sufficient authorization for further disc losure. Allergies and Adverse Reactions Type Description Substance Reaction Status Data Source(s ) Drug allergy No Known Drug Allergies No Known Drug Allergies [facility] Drug allergy No Known Allergies No Known Allergies [facility] Allergy to substance Allergy to substance Duloxetine Hcl [facility] ([facility]) Allergy to substance Allergy to substance Duloxetine Hcl [place] ([facility]) Drug allergy CYMBALTA CYMBALTA overheating, sweating [facility] Family History Family Member Name Family Member Gender Family Member Status Date o f Status Description Data Source(s) Unknown Male Problem [facility] ([facility]) Encounters Encounter Providers Location Date Indications Data Source(s ) Outpatient Attender: Anel Redd MD [email or web address] 03/05 12:00:00 AM EST - 03/15/2020 11:41:18 AM EST [facility] Outpatient Attender: YAIR GERMAIN MD [id number] 03/12/19 06:57:00 PM EST - 03/13/2020 02:44:00 PM EST [facility] Patient discharged. Emergency Attender: TIARA Nealer: Aleja Hurtado [facility]- EMERGENCY ROOM 03/12/2020 11:27:00 AM EST - 03/12/2020 11:27:00 AM [facility] Patient discharged. Outpatient [facility] 03/12/2020 12:00:00 AM EST eCW1 ([facility]) Isidra Castaneda RPA-C: [address] [place] [address] [address], [place] [address], Ph. Attender: ISIDRA CASTANEDA [place] [facility] - [facility] Medical 03/12/2020 12:00:00 AM EST [place] ([facility]) ANTONIO Vang: [address] [facility], [facility] [address], [place] [address], Ph. Attender: ISIDRA CASTANEDA [place] [facility] - [facility] 03/12/2020 12:00:00 AM [facility] ([facility]) Emergency Attender: LANCE MARSHALL PAReferrer: Dee Dee Hurtado [facility] EM[facility]GENCY [facility]-ER 01/16/2020 11:09:00 PM EST - 01/16/2020 11:29:00 PM [facility] Patient discharged. Outpatient Attender: NATALIA BERGERON [facility] 03/2019 02:49:01 PM EST [facility] Outpatient Attender: NATALIA BERGERON [facility] 12/03 08:26:01 AM EDT [facility] Emergency Attender: ELVIE MAHONEY JRReferrer: Vera wong ELECTROMECHANICAL EQUIPMENT TESTER 12/13/2019 10:45:00 AM EDT - 12/13/2019 11:00:00 AM EDT [facility] pital Patient discharged. Outpatient Attender: NATALIA BERGERON [facility] 11/05 01:36:01 PM EDT [facility] Outpatient Attender: RUBIO ALVAREZ [facility] 12/01/2019 11:04:04 AM EDT [facility] Outpatient Attender: NATALIA BERGERON [facility] 11/2019 05:39:00 PM EDT [facility] Outpatient Attender: NATALIA BERGERON [facility] 10/03 07:55:00 AM EDT [facility] Outpatient Attender: RUBIO ALVAREZ [facility] 10/09/2019 12:00:39 AM EDT [facility] Outpatient Attender: RUBIO ALVAREZ [facility] 10/08/2019 02:40:01 PM EDT [facility]: [facility] 02:39:02 PM EDT [facility] Outpatient Attender: NATALIA BERGERON [facility] 07/2019 09:47:02 AM EDT [facility] Outpatient Attender: RFROST THOMPSON PA RUBIO [facility] 07/2019 09:37:02 AM EDT [facility] Outpatient Attender: RUBIO MARIEC [facility] 10/01/2019 03:56:00 PM EDT [facility] Emergency Attender: KRYSTIN CHIANGeferrer: Germán Oneal 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 Emergency Attender: LUCIANO Nealer: Phillip Hurtado ELECTROMECHANICAL EQUIPMENT TESTER EMERGENCY ROOM-ER 09/22/2019 02:01:00 PM EDT - 09/22/2019 09:41:00 PM EDT [facility] Patient discharged. Outpatient Attender: RFROST THOMPSON PA RUBIO [facility] 09/02 01:13:06 PM EDT [facility] Outpatient Attender: RFROST THOMPSON PA RUBIO [facility] 09/02 05:25:00 PM EDT [facility] Outpatient Attender: RFROST THOMPSON PA RUBIO [facility] 09/02 04:16:01 PM EDT [facility] Outpatient Attender: RFROST THOMPSON PA RUBIO [facility] 09/2019 05:48:01 PM EDT [facility] Outpatient Attender: RFROST THOMPSON PA RUBIO [facility] 08/03 10:22:01 AM EDT [facility] Outpatient Attender: RUBIO THOMPSON RPA-C [facility] 08/15/2019 10:14:00 AM EDT [facility] Outpatient Attender: RFROST THOMPSON PA RUBIO [facility] 08/03 10:13:01 AM EDT [facility] Outpatient Attender: RFROST THOMPSON PA RUBIO [facility] 08/03 10:53:00 AM EDT [facility] Outpatient Attender: RFROST THOMPSON PA RUBIO [facility] 10/2019 11:36:01 AM EDT [facility] Outpatient Attender: RFROST THOMPSON PA RUBIO [facility] 05/2019 02:41:02 PM EDT [facility] Outpatient Attender: NATALIA THOMPSON AKIN RUBIO [facility] 05/2019 08:24:02 AM EDT [facility] Outpatient Attender: [facility] 04/2019 12:48:01 PM EDT [facility] Outpatient Attender: RUBIO ALVAREZ [facility] 08/01/2019 10:22:03 AM EDT [facility] Outpatient Attender: [facility]AL[facility]PSON [facility] 07/04 09:42:01 AM EDT [facility] Outpatient Attender: RUBIO ALVAREZ [facility] 07/24/2019 10:22:02 AM EDT [facility] Outpatient Attender: NATALIA THOMPSON AKIN BERGERON [facility] 07/04 10:22:01 AM EDT [facility] Outpatient Attender: RUBIO ALVAREZ [facility] 07/14/2019 12:22:04 PM EDT [facility] Outpatient Attender: BEVERLEY ARAGON MD 07/14/2019 11:33:02 A M EDT [facility] Outpatient Attender: BEVERLEY ARAGON MD 07/11/2019 03:17:00 P M EDT [facility] Outpatient Attender: BEVERLEY ARAGON MD 07/11/2019 02:43:02 P M EDT [facility] Outpatient Attender: NENO silva 06/24/2019 01:00:00 PM EDT [facility] ([facility]) Outpatient Attender: BEVERLEY ARAGON MD 05/27/2019 09:01:07 P M EDT [facility] Emergency Attender: WINSTON GERARDO EMERGENCY ROOM- ER 12/05/2017 11:52:00 AM EDT - 12/05/2017 02:30:00 PM [facility] Outpatient Attender: RUBIO ALVAREZ 01/09/2017 09:16:00 AM [facility] Outpatient Attender: ERIK CLARK MD 12/22/2016 12:02:00 PM [facility] Medications Medication Brand Name Start Date Product Form Dose Route Admi nistrative Instructions Pharmacy Instructions Status Indications Reaction Description Data Source(s) PPD- TB Intradermal Test 06/24/2019 12:00:00 AM EDT completed [facility] ([facility]) Medication administered onsite Dexamethasone 4 MG Oral Tablet dexamethasone 4 mg tabl et dexamethasone 4 mg tablet completed dexamethasone 4 MG Oral Tablet [facility] ([facility]) doxycycline hyclate 100 MG Oral Tablet doxycycline hyc late 100 mg tablet doxycycline hyclate 100 mg tablet comp leted doxycycline hyclate 100 MG Oral Tablet [facility] ([facility]) Dexamethasone 4 MG Oral Tablet dexamethasone 4 mg tabl et dexamethasone 4 mg tablet completed dexamethasone 4 MG Oral Tablet [facility] ([facility]) Azithromycin 250 MG Oral Tablet azithrom ycin 250 mg tablet TAKE 1 TABLET BY MOUTH ONCE A DAY azithromycin 250 mg tablet TAKE 1 TABLET BY MOUTH ONCE A DAY completed azithromycin 2 50 MG Oral Tablet [facility] ([facility]) Azithromycin 250 MG Oral Tablet azithrom ycin 250 mg tablet TAKE 1 TABLET BY MOUTH ONCE A DAY azithromycin 250 mg tablet TAKE 1 TABLET BY MOUTH ONCE A DAY completed azithromycin 2 50 MG Oral Tablet [facility] ([facility]) doxycycline hyclate 100 MG Oral Tablet doxycycline hyc late 100 mg tablet doxycycline hyclate 100 mg tablet comp leted doxycycline hyclate 100 MG Oral Tablet [facility] ([facility]) Prednisone 20 MG Oral Tablet prednisone 20 mg tablet prednisone 20 mg tablet completed prednisone 20 MG Oral Tablet [facility]) Levofloxacin 500 MG Oral Tablet levoflox acin 500 mg tablet TAKE ONE TABLET BY MOUTH ONCE DAILY DIRECTED levofloxacin 500 mg tablet TAKE ONE TABL ET BY MOUTH ONCE DAILY DIRECTED completed levofloxacin 500 MG Oral Tablet [facility] ([facility]) Prednisone 20 MG Oral Tablet prednisone 20 mg tablet prednisone 20 mg tablet completed prednisone 20 MG Oral Tablet [facility] ([facility]) Levofloxacin 500 MG Oral Tablet levoflox acin 500 mg tablet TAKE ONE TABLET BY MOUTH ONCE DAILY DIRECTED levofloxacin 500 mg tablet TAKE ONE TABL ET BY MOUTH ONCE DAILY DIRECTED completed levofloxacin 500 MG Oral Tablet [facility] ([facility]) Insurance Providers Payer name Policy type / Coverage type Policy ID Covered libertarian ID Covered libertarian's relationship to wilson Policy Wilson Plan Information NICANOR [id number] SP [id number] [place] [id number] SP [id number] [place] MEDICAID [id number] [place]yta 7 [id number] [place] MED[place] [id number] S [id number] [place] [facility] MEDICAID [id number] S [id number] [facility] MEDICAID [id number] S [id number] [facility] MEDICAID [id number] S [id number] Managed Care [place] P [id number] S [id number] Medicaid S [id number] S [id number] Managed Care [place] P [id number] S [id number] Medicaid S [id number] S [id number] [place] [id number] SP [id number] MEDICAID [id number] SP [id number] ANSI-Commercial [id number] ANSI-Commercial [id number] ANSI-Medicaid [id number] ANSI-Medicaid [id number] ANSI-Medicaid [id number] ANSI-Commercial [id number] ANSI-Medicaid [id number] ANSI-Commercial [id number] ANSI-Medicaid [id number] ANSI-Commercial [id number] ANSI-Commercial [id number] ANSI-Medicaid [id number] ANSI-Commercial [id number] [facility] [id number] ANSI-Commercial [id number] ANSI-Commercial [id number] ANSI-Medicaid [id number] ANSI-Commercial [id number] ANSI-Commercial [id number] ANSI-Medicaid [id number] ANSI-Medicaid [id number] [place] Medicaid/P/P Commercial [id number] [facility] [id number] ANSI-Medicaid [id number] ANSI-Commercial [id number] ANSI-Medicaid [id number] ANSI-Commercial [id number] ANSI-Commercial [id number]-[id number]-[id number]-[id number]-[id number] ANSI-Commercial [id number]-[id number] ANSI-Medicaid [id number] [facility]-Medicaid [id number] [facility]-Medicaid [id number] ANSI-Commercial [id number] ANS-Commercial [id number] [facility]-Medicaid [id number] [facility] [id number] ANSI-Medicaid [id number] [facility]-Medicaid [id number] ANSI-Commercial [id number] [facility]-Medicaid [id number] ANSI-Commercial [id number] ANSI-Commercial [id number] ANSI-Medicaid [id number] ANSI-Commercial [id number]-08w9-781g-[id number] ANSI-Commercial [id number]-[id number]-[id number]-6q0g-[id number] ANSI-Medicaid [id number] ANSI-Medicaid [id number] ANSI-Medicaid [id number] ANSI-Commercial [id number] ANSI-Commercial [id number]-[id number]-jr3j-30zl-314r-[id number] ANSI-Medicaid [id number] [employer] [id number] S [id number] [facility] MEDICAID [id number] S [id number] [employer] [id number] S [id number] [employer] [id number] S [id number] ANSI-Commercial [id number] ANSI-Medicaid [id number] ANSI-Medicaid [id number] ANSI-Commercial [id number] ANSI-Medicaid [id number] ANSI-Commercial [id number] ANSI-Commercial [id number] ANSI-Medicaid [id number] ANSI-Medicaid [id number] ANSI-Medicaid [id number] ANSI-Commercial [id number] ANSI-Commercial [id number] ANSI-Medicaid [id number] ANSI-Commercial [id number] ANSI-Medicaid [id number] ANSI-Commercial [id number] SELF PAY ONLY 0 SP 0 [facility] MEDICAID [id number] S [id number] [facility] [id number] S [id number] [facility] HMO UNAVAILABLE UNAVAILABLE [facility] MEDICAID [facility] HMO [id number] S [id number] SELF PAY SP [id number] S [id number] [employer] [id number] S [id number] SELF PAY ONLY UNAVAILABLE SP UNAV AILABLE OTHER1 [id number] SP [id number] [facility] COMM [id number] S [id number] Problems, Conditions, and Diagnoses Code Display Name Description Problem Type Effective Dates Data Source(s) M50.30 Other cervical disc degeneration, unspec ified cervical region Other cervical disc degeneration, unspecified cervical region 12/01/2019 11:02:38 AM EDT [facility] [id number] Chronic neck pain for greater than 3 mon ths Chronic neck pain for greater than 3 months 12/01/2019 11:02:38 AM EDT [facility] N95[facility]8 Other specified menopausal and perimenop ausal disorders Other specified menopausal and perimenopausal disorders 12/01/2019 11:02:38 AM EDT [facility] hot flashes, mood swings 274841121 Dyspnea, unspecified Dyspnea, unspecified 10/08/2019 02:38:50 PM EDT [facility] 295420980 Swelling of bilateral lower limbs Swelling of bilatera l lower limbs 10/08/2019 02:38:50 PM EDT [facility] 294634483 Dyspnea Dyspnea Problem 10/08/2019 12:00:00 AM ED T [facility] ([facility]) 189215234 Polyalgia Polyalgia Problem 10/08/2019 12:00:00 AM ED T [facility] ([facility]) 568386971 Dyspnea Dyspnea Problem 10/08/2019 12:00:00 AM ED T [facility] ([facility]) 660913551 Polyalgia Polyalgia Problem 10/08/2019 12:00:00 AM ED T [facility] ([facility]) 34092777 Unspecified bacterial pneumonia Unspecified bacterial pneumonia 10/01/2019 03:55:54 PM EDT [facility] 316511287 Pneumonia caused by Gram positive bacter ia Pneumonia Caused by gram Positive Bacteria Problem 10/01/2019 12:00:00 AM EDT [facility] ([facility]) 971138600 Pneumonia caused by Gram positive bacter ia Pneumonia Caused by gram Positive Bacteria Problem 10/01/2019 12:00:00 AM EDT [facility] ([facility]) 337442114 Viral intestinal infection, unspecified Viral intestinal infection, unspecified 08/15/2019 10:12:47 AM EDT [facility] 4820128 Migraine with aura, not intractable, wit hout status migrainosus Migraine with aura, not intractable, without status migrainosus 08/15/2019 10:12:47 AM EDT [facility] 2148151 Migraine with aura Migraine with Aura Problem 02/2020 12:00:00 AM EDT [facility] 4782765 Migraine with aura Migraine with Aura Problem 02/2020 12:00:00 AM EDT [facility]) 45938895 Irregular menstruation, unspecified Irre gular menstruation, unspecified 08/01/2019 10:21:54 AM EDT [facility] 98314688 Cardiac murmur, unspecified Cardiac murmur, unspecifie d 08/01/2019 10:21:54 AM EDT [facility] V85.1 BMI 24.0-24.9 BMI 24.0-24.9 08/01/2019 10:21:54 AM EDT [facility] 431237121 Finding of regularity of menstrual cycle Finding of Regularity of Menstrual Cycle Problem 08/01/2019 12:00:00 AM EDT [facility] ([facility]) 312340120 Body measurement finding Body Measurement Finding Prob celeste 08/01/2019 12:00:00 AM EDT [facility] ([facility]) 69810887 Heart murmur Heart Murmur Problem 08/01/2019 12:00:00 A M EDT [facility] ([facility]) 243783636 Finding of regularity of menstrual cycle Finding of Regularity of Menstrual Cycle Problem 08/01/2019 12:00:00 AM EDT [facility] ([facility]) 109282148 Body measurement finding Body Measurement Finding Prob celeste 08/01/2019 12:00:00 AM EDT [facility] ([facility]) 31402360 Heart murmur Heart Murmur Problem 08/01/2019 12:00:00 A M EDT [facility]) V15.89 Passive smoke exposure Passive smoke exposure 07/24/2019 10:21:35 AM EDT [facility] 305.1 Tobacco use Tobacco use 07/24/2019 10:21:35 AM EDT [facility] [id number] Exposure to second hand tobacco smoke Ex posure to Second Hand Tobacco Smoke Problem 07/24/2019 12:00:00 AM EDT [facility] ([facility]) 788407196 Tobacco use and exposure - finding Tobacco Use a nd Exposure - Finding Problem 07/24/2019 12:00:00 AM EDT [facility] ([facility]) 64822522232633498 Exposure to second hand tobacco smoke Ex posure to Second Hand Tobacco Smoke Problem 07/24/2019 12:00:00 AM EDT [facility] ([facility]) 523174370 Tobacco use and exposure - finding Tobacco Use a nd Exposure - Finding Problem 07/24/2019 12:00:00 AM EDT [facility] ([facility]) 401.9 Essential hypertension Essential hypertension 07/14/2019 12:21:26 PM EDT [facility] 467694853 Prediabetes Prediabetes 07/14/2019 12:21:26 PM EDT [facility] based on 07/2018 A1c 729.1 Fibromyalgia Fibromyalgia 07/14/2019 12:21:26 P M EDT [facility] V70.0 Encounter for general adult medical exam ination without abnormal findings Encounter for general adult medical examination without abnormal findings 07/14/2019 12:21:26 PM EDT [facility] 560365881 Prediabetes Prediabetes Problem 07/14/2019 12:00:00 AM EDT [facility] ([facility]) 218549807 Fibromyalgia Fibromyalgia Problem 07/14/2019 12:00:00 A M EDT [facility] ([facility]) 59472874 Hypertensive disorder Hypertensive Disorder Problem 07/14/2019 12:00:00 AM EDT [facility] ([facility]) 474709000 Prediabetes Prediabetes Problem 07/14/2019 12:00:00 AM EDT [facility] ([facility]) 973331477 Fibromyalgia Fibromyalgia Problem 07/14/2019 12:00:00 A M EDT [facility] ([facility]) 53517686 Hypertensive disorder Hypertensive Disorder Problem 07/14/2019 12:00:00 AM EDT [facility]) R01.1 Cardiac murmur, unspecified Cardiac murmur, unspecifie d Diagnosis 03/15/2020 10:36:34 AM EST [facility] R06.02 Shortness of breath Shortness of breath Diagnosis 0 03/15/2020 10:36:34 AM [facility] 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 O THER CASING FLUID TENDER (CURRENT) DRUG THERAPY Diagnosis 01/16/2020 11:09:00 PM [facility] l 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 ids CARE HOME (CURRENT) USE OF INHALED STEROIDS Diagnosis 01/16/2020 11:09:00 PM [facility] Z20.828 Contact with and (suspected) exposure to other viral communicable diseases CONTACT W AND EXPOSURE TO OTH VIRAL COMMUNICABLE D Diagnosis 01/16/2020 11:09:00 PM [facility] F17.210 Nicotine dependence, cigarettes, uncompl icated NICOTINE DEPENDENCE, CIGARETTES, UNCOMPLICATED Diagnosis 01/16/2020 11:09:00 PM [facility] I10 Essential (primary) hypertension ESSENTIAL (PRIMARY) H YPERTENSION Diagnosis 01/16/2020 11:09:00 PM [facility] R60.9 Edema, unspecified EDEMA, UNSPECIFIED Diagnosis 11:09:00 PM [facility] J45.30 Mild persistent asthma, uncomplicated MO LD PERSISTENT ASTHMA, UNCOMPLICATED Diagnosis 01/16/2020 11:09:00 PM [facility] R05 Cough COUGH Diagnosis 01/16/2020 11:09:00 PM [facility] Y93.89 Activity, other specified ACTIVITY, OTHER SPECIFIED Di agnosis 12/13/2019 10:45:00 AM [facility] Y92.[address] in unspeci fied non-institutional (private) residence as the place of occurrence of the external cause UNSP PLACE IN [facility] NON-INSTITUT (PRIVATE) RESIDENC Diagnosis 12/13/2019 10:45:00 AM [facility] W57.XXXA Bitten or stung by nonvenomo us insect and other nonvenomous arthropods, initial encounter BIT/STUNG BY NONVENOM INSECT OTH NONVENOM ARTHRO Diagnosis 12/13/2019 10:45:00 AM [facility] J45.909 Unspecified asthma, uncomplicated UNSPECIFIED THMA, UNCOMPLICATED Diagnosis 12/13/2019 10:45:00 AM [facility] M79.7 Fibromyalgia FIBROMYALGIA Diagnosis 12/13/2019 10:45:00 A [facility] S70.362A Insect bite (nonvenomous), left thigh, i nitial encounter INSECT BITE (NONVENOMOUS), LEFT THIGH, INITIAL ENC Diagnosis 12/13/2019 10:45:00 A M [facility] M54.2 Cervicalgia CERVICALGIA Diagnosis 12/13/2019 10:45:00 AM [facility] 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.52 rat 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 (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) use of systemic ster oids CASING FLUID TENDER (CURRENT) USE OF SYSTEMIC STEROIDS Diagnosis 09/24/2019 01:22:00 PM [facility] l Z79.2 intermediate (current) use of antibiotics L SETH TERM (CURRENT) USE OF ANTIBIOTICS Diagnosis 09/24/2019 01:22:00 PM [facility] l F41.1 Generalized anxiety disorder GENERALIZED ANXIETY DISOR GRZEGORZ Diagnosis 09/24/2019 01:22:00 PM [facility] R06.00 Dyspnea, unspecified DYSPNEA, UNSPECIFIED Diagnosis 09/24/2019 01:22:00 PM [facility] J15.9 Unspecified bacterial pneumonia UNSPECIFIED BACTERIAL PNEUMONIA Diagnosis 09/22/2019 02:01:00 PM [facility] J45.21 Mild intermittent asthma with (acute) ex acerbation MILD INTERMITTENT ASTHMA WITH (ACUTE) EXACERBATION Diagnosis 09/22/2019 02:01:00 PM [facility] R01.1 Cardiac murmur, unspecified CARDIAC MURMUR, UNSPECIFIE D Diagnosis 09/22/2019 02:01:00 PM [facility] R00.0 Tachycardia, unspecified TACHYCARDIA, UNSPECIFIED Diag nosis 09/22/2019 02:01:00 PM [facility] J90 Pleural effusion, not elsewhere classifi ed PLEURAL EFFUSION, NOT ELSEWHERE CLASSIFIED Diagnosis 09/22/2019 02:01:00 PM [facility] l J18.9 Pneumonia, unspecified organism PNEUMONIA, UNSPECIFIED ORGANISM Diagnosis 09/22/2019 02:01:00 PM [facility] R07.2 Precordial pain PRECORDIAL PAIN Diagnosis 09/22/2019 02:0 1:00 PM [facility] R07.89 Other chest pain OTHER CHEST PAIN Diagnosis 09/22/2019 02 :01:00 PM [facility] Results ID Date Data Source [id number] 03/13/2020 10:44:00 AM EST [place] [address] [address]TAFWHNS NAME: MARIA G LEWIS#: [id number] PHYSICIAN: RAJ NICHOLASOUNT #: [id number] ADM. DATE:PATIENT : 66 DISCH. DATE: [50}DISCHARGE SUMMARYSurgical/Ortho discharge planNicotine Replacement TherapyPrescribed at discharge Rx not offered at DCReason not offered n/aPersonal Care InstructionsDischarge Activity: Resume normal activity, Lifting, limited weight (<20lbs t2dgoqp)Discharge diet: Low Fat/Low CholesterolWound care: Change dr justus as needed (leave steris allow to fall off), Other (remove bandaids 48hr &shower)Problem ListMedical ProblemsAcute calculous cholecystitisADD (attention deficit disorder)AnxietyCervicalgiaCOPD (chronic obstructive pulmonary disease)DepressionFibromyalgiaGERD (gastroesophageal reflux disease)History of motor vehicle accidentHTN (hypertension)Tobacco dependenceSurgical ProblemsHistory of ankle surgeryHistory of bilateral salpingectomyHistory of breast biopsyFollow Up CareFollow Up:Follow up with Dr. Germain in 2 weeks.Take tylenol and motrin alternating every 3hrs for painPriority ItemsUrgent/Important items that need to be addressed at primary care follow- upappointmentEND ENDDICT: 03/13/20 1044 Electronically SignedTRANS:03/13/20 1044 YAIR GERMAIN MDTRANS BY:DATE SIGNED:03/13/20TIME SIGNED: 1046REPORT COPY TO: Name Value Range Interpretation Code Description Data Nimo rce(s) Supporting Document(s) ID Date Data Source [id number] 03/13/2020 10:40:00 AM EST [place] [address] [address]TYTMGLEEB REPORTPATIENT NAME: MARIA G LEWIS LM.R.#: [id number]: JOHNATHAN NICHOLAS. DATE: 03/12/20PATIENT : 66LOCATION: 2EASTACCOUNT #: [id number] ReportOperative ReportDATE OF PROCEDURE: 1PROCEDURE PERFORMED: Robotic- assisted laparoscopic cholecystectomy.PREOPERATIVE DIAGNOSIS: Acute calculus cholecystitisPOSTOPERATIVE DIAGNOSIS: SameATTENDING SURGEON: Dr. Yair Germain.ANESTHESIA: General.SPECIMENS: Gallbladder to pathologyCOMPLICATIONS: None evidentDISPOSITION: Tolerated wellINDICATION FOR THE PROCEDURE: 49-year-old female with increasingly severe rightupper quadrant abdominal pain accompanied by nausea. She had leukocytosis andultrasound confirmation of cholecystitis.DESCRIPTION OF PROCEDURE: The patient was counseled preoperatively, signedinformed consent and desired to proceed. The patient was brought to theoperating suite, placed supine and correctly identified. The patientparticipated in a timeout and was anesthetized and intubated. A surgical WHOtimeout was performed and the abdomen was prepped and draped in the standardsterile surgical fashion with ChloraPrep. SCDs were in place and preoperativeantibiotics were administered. A Veress needle was placed in the left upperquadrant at Fuller's point. A saline drop test was performed and the abdomenwas insufflated with 15 mmHg pneumoperitoneum. An 8 mm trocar was placedbluntly off midline and the abdomen was surveyed with a laparoscope. Noevidence of injury during trocar or Veress needle placement was noted. 2 more 8mm trocars were placed in the right lateral aspect and one in the left lateralaspect under direct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 evaluation.Irregular menstruation- unspecified: As above.Prediabetes: A1c is now within normal range. Continue trying to avoid high carb intake and keep weight stable. Monitor A1c every 6-12 months.Tobacco use: Doing well with Nicotrol, continue trying to cut back with goal of complete cessation.Essential hypertension: BP at goal today. Continue current Lasix, awaiting cardiology referral.ADHD: Stable with current Methylphenidate.Nicotine dependence- cigarettes- uncomplicated: As above.Chronic neck pain for greater than 3 months: Tizanidine as prescribed, use at bedtime due to risk for grogginess. MRI ordered and will work with insurance to approval, then call you to schedule.Consider PT, call here if you feel you can accomodate that.Other cervical disc degeneration- unspecified cervical region: As above. Plan developed in collaboration with patient and/or familyMedications:TIZANIDINE HCL 4 MG ORAL TABLETCYMBALTA 60 MG ORAL CAPSULE DELAYED RELEASE PARTICLESCYMBALTA 30 MG ORAL CAPSULE DELAYED RELEASE PARTICLESNICOTROL 10 MG INHALATION INHALERFUROSEMIDE 20 MG ORAL TABLETHYDROXYZINE HCL 50 MG ORAL TABLETALBUTEROL SULFATE HFA 108 (90 BASE) MCG/ACT INHALATION AEROSOL SOLUTIONALBUTEROL SULFATE (2.5 MG/3ML) 0.083% INHALATION NEBULIZATION SOLUTIONMETHYLPHENIDATE HCL 20 MG ORAL TABLETCETIRIZINE HCL 10 MG ORAL TABLETMONTELUKAST SODIUM 10 MG ORAL TABLETMedication Changes:Refilled:METHYLPHENIDATE HCL 20 MG ORAL TABLET-Take 1 tablet po bid; MDD 2 tablets Qty: 60[Tablet] Refills: 0 Method: ElectronicNew Prescription:TIZANIDINE HCL 4 MG ORAL TABLET-Take 1 tablet po TID prn pain/spasm Qty: 90[Tablet] Refills: 1 Method: ElectronicRemoved:AVIDOXY 100 MG ORAL TABLET-take one tablet by mouth two times a day.Changed: To: METHYLPHENIDATE HCL 20 MG ORAL TABLET-Take 1 tablet po bid; MDD 2 tablets Qty: 60[Tablet] Refills: 0Allergies:CYMBALTA (DULOXETINE HCL) (Moderate)Information o n new prescriptions provided to patient.Orders:[id number] - Venipuncture [CPT-78422] GONADOTROPIN FOLLICLE STIMULATING HORMONE [CPT-10172] GONADOTROPIN LUTEINIZING HORMONE [CPT-05050] TESTOSTERONE TOTAL [CPT-69041] PROGESTERONE [CPT-26022] ESTROGENS TOTAL [CPT-32158] Adult - Ofc Vst, EST, Level IV [CPT-80375] MRI SPINAL CANAL CERVICAL W/O CONTRAST MATRL [CPT-08968] Follow-Up Return to clinic: in 90 days for follow upAdditional Follow-Up: ADHD/HTN after nonfasting labClinical Visit Summary CompletedMedications:METHYLPHENIDATE HCL 20 MG ORAL TABLET (METHYLPHENIDATE HCL) Take 1 tablet po bid; MDD 2 tablets #60[Tablet] x 0 Entered and Authorized by: Rubio GERARDO Method used: Electronically to [facility] (retail) [address] [place] [address] Fax: Indications: ADHD RxID: [id number] HCL 4 MG ORAL TABLET (TIZANIDINE HCL) Take 1 tablet po TID prn pain/spasm #90[Tablet] x 1 Route:ORAL Entered and Authorized by: Rubio GERARDO Method used: Electronically to [facility] ([facility]) [address] [place] [address] Fax: Note to Pharmacy: Route: ORAL; Indications: OTHER CERVICAL DISC DEGENERATION, UNSPECIFIED CERVICAL REGION;CHRONIC NECK PAIN FOR GREATER THAN 3 MONTHS RxID: [id number] In-House Blood TestsDate/Time Collected: December 01, 2019 11:10 AMDate/Time Received: December 01, 2019 11:10 AMTest Result Reference Range Normal ValueComments: Labs drawn in office taken from the right AC without difficulty. Patient tolerated it well.Isidra Rey MA, December 01, 2019 11:55 AM Name Value Range Interpretation Code Description Data Nimo rce(s) Supporting Document(s) ID Date Data Source [id number] 10/08/2019 11:32:13 AM EDT [facility] Measurements & CalculationsHeight: 64 inches (5 ft. 4 in.) 162.56 cm Weight: 148 pounds 2 oz. 67.33 kg Body Mass Index (BMI): 25.52BMI Interpretation: OverweightBody Surface Area (BSA): 1.72Weight Management Education Done (Nutrition/Physical Activity)Vital SignsTemperature: 96.2F 35.67C tympanic Pulse Rate: 89 beats/minuteRespiratory Rate: 18 respirations/minuteBlood Pressure: 139/86 left arm sitting automaticO2 Saturation: 97% Vital Signs performed by: Tess Caldera LPN, October 08, 2019 11:32 AMInitial Intake Information From: patientRoom #: 1Infectious Disease / Travel ScreeningRecent travel for you or any close contacts? NoHave you had any close contact with anyone diagnosed with or under investigation for COVID-19 (coronavirus)? NoFever? NoRespiratory symptoms: cough, cold, congestion, shortness of breath, difficulty breathing? NoLoss of smell? NoLoss of taste? No Smoking, Tobacco, Vaping or Smoke Exposure StatusSmoke Status: current every day smokerTobacco Use: YesAdv to Quit: YesDo you vape? NoPassive Smoke Exposure: YesMenstrual HistoryLast Menstrual Period (LMP): 08/20/2019LMP History: ApproximateHealthcare HistorySince your last office visit...Have you been admitted to the hospital? NoHave you been to an emergency room ([facility] you [facility] another [facility] provider? NoHave you seen a dentist? NoIntake performed by: Tess Caldera LPN, October 08, 2019 11:34 AMRate Your HealthIn general, would you say your health is? FairPain AssessmentAre you currently having any pain which... You would like your provider to address? No Affects your activity level? NoDepression Screening - PHQ-2Over the last two weeks, have you... Had little interest or pleasure in doing things? Not at all Been feeling down, depressed, or hopeless? Not at all PHQ-2 Score: 0Anxiety Screening - KATHYA-2Over the last two weeks, have you been... Feeling nervous, anxious, or on edge? Several days Unable to stop or control worrying? Several days KATHYA-2 Score: 2Food InsecurityWithin the past year...Did you worry whether your food would run out before you got money to buy more? NoWas there a time when the food you bought didn't last and you didn't have money to get more? NoGeneralized Anxiety Disorder 7-Item Screening (KATHYA-7)Answer Guide:0 = Not at all1 = Several days2 = Over half the days3 = Nearly every dayOver the last 2 weeks, how often have you been bothered by the following problems?Feeling nervous, anxious, or on edge: 1Not being able to stop or control worryinWorrying too much about different things: 1Trouble relaxinBeing so restless that it's hard to sit still: 1Becoming easily annoyed or irritable: 1Feeling afraid as if something awful might happen: 1Answer Guide:0 = Not difficult at all1 = Somewhat difficult2 = Very difficult3 = Extremely difficultHow difficult have these made it for you to do your work, take care of things at home, or get along with other people? 1GAD-7 Screening Results KATHYA-2 Score: 2GAD-7 Score: 7Functional Impairment: Somewhat difficultRecommendation: Mild anxietyScreening, Brief Intervention, & Referral to Treatment (SBIRT)Pre-Screening Questions How many times have you have 4 or more drinks in a day? 0How many times have you used an illegal drug or used a prescription medication for a non-medical reason? 0Performed by: Tess Caldera LPN, October 08, 2019 11:35 AMPatient History Medical History:thyroid cystAsthmaHypertensionADD FibromyalgiaSurgical History:tube nichole valankle castingleft ring finger sxFamily History:thyroid issues - SisterSocial/Personal History: Age of First Use: 9Advised to Quit/Tobacco Education: YesChief Complaintswollen legsHistory of Present Illness (HPI)48 yo female pt presents for swollen legs bilaterally. Pt feels she needs a refill of Lasix from ER. Pt has recurrence of intermittent lower extremity swelling, worsening shortness of breath since stopping the Lasix about 5 days ago. States last night she had to sleep upright due to shortness of breath. Pt feels initially when the Lasix was prescribed, that was the turning point with her shortness of breath 2 weeks ago when you had pneumonia. Denies fever, cough, sputum. Pt states she has stopped taking the Cymbalta and is trying CBD oil instead for her anxiety. Transitions of Care InboundProblem ReviewProblem List was reviewed and/or updated during this visit.Medication Reconciliation & ReviewMedication List was reviewed and/or updated during this visit, including review of any kafm-ifp-nywnaia medications, herbal therapies, and/or supplements.Allergy ReviewAllergy List was reviewed and/or updated during this visit.Adult Preventive CareScreening Tobacco Screening: Smoking Status: current every day smoker (10/08/2019) Tobacco Use: Currently (10/08/2019) Advised to Quit: Yes (10/08/2019)Labs/Meds/Other Counseling-Nutrition and Physical Activity:BMI Interpretation: Overweight (10/08/2019) Counseling: Done (10/08/2019) Physical Activity: Done (10/08/2019)Review of Systems General: Denies chills, dizziness, fatigue, fever, headache. Cardiovascular: Complains of see HPI, SOB upon lying down, peripheral edema. Denies chest pain, palpitations, feeling faint. Respiratory: Denies cough, difficulty breathing, excessive sputum, wheezing, chest pain. Gastrointestinal: Denies nausea, vomiting, diarrhea, pain or discomfort. Neurologic: Denies weakness, feeling faint. Physical ExamGeneral Appearance: well nourished, well hydrated, no acute distressEyes, External: conjunctivae and lids normal, EOMIRespiratory, Auscultation: clear to auscultation bilaterally; no rales, rhonchi, or wheezesRespiratory, Effort: no intercostal retractions or use of accessory musclesCardiovascular, Auscultation: S1, S2 audible; RRR, systolic ejection murmur 2/4, no rubs or gallops appreciatedPeripheral Circulation: 1+ edema b/lAbdomen: soft, non-tender, no masses, bowel sounds normalGait & Station: normalSkin, Inspection: good turgorOrientation: oriented to time, place, and personMood & Affect: mildly anxious appearingJudgment & Insight: intactCare Management Plan Transitions of CareInboundRate Your HealthIn general, would you say your health is? FairAssessment & Plan Problems:Assessed:Unspecified bacterial pneumonia (MTI80-I11.9) Assessment: Instructions: Finish antibx today. No further indicated at this time.Cardiac murmur, unspecified (ICD10- R01.1) Assessment: Instructions: Pending cardiac consult. Resume prior Lasix. Repeat blood work in 1-2 weeks, lab slip provided today to take to [facility].Essential hypertension (ICD-401.9) (SZE22-Z23) Assessment: Instructions: BP borderline high but acceptable today. Resume Lasix.Prediabetes (JRV76-S98.03): based on 07/2018 A1c Assessment: Instructions: Lab slip provided.Swelling of bilateral lower limbs (GWP40-Y23.89) Assessment: Instructions: As above.Patient Instructions/Care Plan: Unspecified bacterial pneumonia: Finish antibx today. No further indicated at this time.Cardiac murmur- unspecified: Pending cardiac consult. Resume prior Lasix. Repeat blood work in 1-2 weeks, lab slip provided today to take to [facility].Essential hypertension: BP borderline high but acceptable today. Resume Lasix.Prediabetes: Lab slip provided.Swelling of bilateral lower limbs: As above. Plan developed in collaboration with patient and/or familyMedications:NICOTROL 10 MG INHALATION INHALERAVIDOXY 100 MG ORAL TABLETFUROSEMIDE 20 MG ORAL TABLETHYDROXYZINE HCL 50 MG ORAL TABLETALBUTEROL SULFATE HFA 108 (90 BASE) MCG/ACT INHALATION AEROSOL SOLUTIONALBUTEROL SULFATE (2.5 MG/3ML) 0.083% INHALATION NEBULIZATION SOLUTIONMETHYLPHENIDATE HCL 20 MG ORAL TABLETCETIRIZINE HCL 10 MG ORAL TABLETMONTELUKAST SODIUM 10 MG ORAL TABLETMedication Changes:Removed:CYMBALTA 30 MG ORAL CAPSULE DELAYED RELEASE PARTICLES-Take 1 capsule po daily with 60mg capsule, total dose of 90mg daily Qty: 90[Capsule] Refills: 3, CYMBALTA 60 MG ORAL CAPSULE DELAYED RELEASE PARTICLES-Take 1 capsule po daily with 30mg capsule, total dose of 90mg daily Qty: 90[Capsule] Refills: 3Allergies:CYMBALTA (DULOXETINE HCL) (Moderate)Order s:Adult - Ofc Vst, EST, Level III [CPT-17315] Follow-Up Return to clinic: as needed, as scheduled for follow upClinical Visit Summary Completed Name Value Range Interpretation Code Description Data Nimo rce(s) Supporting Document(s) ID Date Data Source [id number] 10/01/2019 03:14:31 PM EDT [facility] Measurements & CalculationsHeight: 64 inches (5 ft. 4 in.) 162.56 cm Weight: 140 pounds 6 oz. 63.81 kg Body Mass Index (BMI): 24.18BMI Interpretation: Healthy WeightBody Surface Area (BSA): 1.68Weight Management Education Done (Nutrition/Physical Activity)Vital SignsTemperature: 96.9F 36.06C tympanic Pulse Rate: 95 beats/minuteRespiratory Rate: 18 respirations/minuteBlood Pressure: 157/84 right arm sitting automaticO2 Saturation: 96% Vital Signs performed by: Tess Caldera LPN, October 01, 2019 3:14 PMVital Signs performed by: Rubio GERARDO, October 01, 2019 3:45 PMMultiple Vital SignsVitals #2Sp02: 96% BP: 155/93 Performed by: Tess Caldera LPN, October 01, 2019 3:57 PMInitial Intake Information From: patientRoom #: 2Infectious Disease / Travel ScreeningRecent travel for you or any close contacts? NoHave you had any close contact with anyone diagnosed with or under investigation for COVID-19 (coronavirus)? NoFever? NoRespiratory symptoms: cough, cold, congestion, shortness of breath, difficulty breathing? YesLoss of smell? NoLoss of taste? NoSmoking, Tobacco, Vaping or Smoke Exposure StatusSmoke Status: current every day smokerTobacco Use: YesAdv to Quit: YesDo you vape? NoPassive Smoke Exposure: YesMenstrual HistoryLast Menstrual Period (LMP): 08/20/2019LMP History: ApproximateAny possibility of ? NoHealthcare HistorySince your last office visit...Have you been to an emergency room (ER[facility] or [facility] you seen another healthcare provider? NoHave you seen a dentist? NoIntake performed by: Tess Caldera LPN, October 01, 2019 3:18 PMRate Your HealthIn general, would you say your health is? FairPain AssessmentAre you currently having any pain which... You would like your provider to address? Yes Affects your activity level? YesDepression Screening - PHQ-2Over the last two weeks, have you... Had little interest or pleasure in doing things? More than half the days Been feeling down, depressed, or hopeless? Nearly every day PHQ-2 Score: 5Anxiety Screening - KATHYA-2Over the last two weeks, have you been... Feeling nervous, anxious, or on edge? More than half the days Unable to stop or control worrying? More than half the days KATHYA-2 Score: 4Food InsecurityWithin the past year...Did you worry whether your food would run out before you got money to buy more? NoWas there a time when the food you bought didn't last and you didn't have money to get more? NoGeneralized Anxiety Disorder 7-Item Screening (KATHYA-7)Answer Guide:0 = Not at all1 = Several days2 = Over half the days3 = Nearly every dayOver the last 2 weeks, how often have you been bothered by the following problems?Feeling nervous, anxious, or on edge: 2Not being able to stop or control worryinWorrying too much about different things: 2Trouble relaxinBeing so restless that it's hard to sit still: 2Becoming easily annoyed or irritable: 2Feeling afraid as if something awful might happen: 2Answer Guide:0 = Not difficult at all1 = Somewhat difficult2 = Very difficult3 = Extremely difficultHow difficult have these made it for you to do your work, take care of things at home, or get along with other people? 2GAD-7 Screening Results KATHYA-2 Score: 4GAD-7 Score: 14Functional Impairment: Very difficultRecommendation: Moderate anxietyPHQ-9 1. Over the last 2 weeks, patient reports the following frequency of symptoms: a. Little interest or pleasure in doing things -More than half the days b. Feeling down, depressed, or hopeless -Nearly every day c. Trouble falling asleep, staying asleep, or sleeping too much -More than half the days d. Feeling tired or having lit tle energy -More than half the days e. Poor appetite or overeating - More than half the days f. Feeling bad about yourself, feeling that you are a failure, or feeling that you have let yourself or your family down -More than half the days g. Trouble concentrating on things such as reading the newspaper or watching television -More than half the days h. Moving or speaking so slowly that other people could have noticed. Or being so fidgety or restless that you have been moving around a lot more than usual -More than half the days i. Thinking that you would be better off or that you want to hurt yourself in some way -Not at all2. If you checked off any problems, how difficult have these problems made it for you to do your work, take care of things at home, or get along with other people? -Very DifficultToday's PHQ-9 Results Score: 17 Severity: Moderately Severe Diagnosis Recommendation: Major Depression Functional Impairment: Very DifficultToday's Follow-Up Action Depression follow-up done. Follow-Up Action: Continue To Take Medications as PrescribedPain AssessmentLocation: neckDuration: yearsFrequency: DailyCharacter/Quality: aching and throbbingScreening, Brief Intervention, & Referral to Treatment (SBIRT)Pre- Screening Questions How many times have you have 4 or more drinks in a day? 0How many times have you used an illegal drug or used a prescription medication for a non-medical reason? 0Performed by: Tess Caldera LPN, October 01, 2019 3:21 PMPatient History Medical History:thyroid cystAsthmaHypertensionADD FibromyalgiaSurgical History:tube removalankle castingleft ring finger sxFamily History:thyroid issues - SisterSocial/Personal History: Age of First Use: 9Advised to Quit/Tobacco Education: YesChief Complaintfollow-up visit: Er f/u pneumoniaHistory of Present Illness (HPI)48 yo female pt presents for [facility] ER f/u of pneumonia. Pt was seen at ER twice for this concern, only the second visit form 09/24/2019 is available in records. She was diagnosed on 09/22/2019 with pneumonia, had no improvement with initial antibiotic, so that was switched to doxycycline on 09/24/2019. Screened negative for COVID19 on 09/24/2019. She was also given Lasix and Hydroxyzine at that time for shortness of breath and anxiety. Of note, patient has pending cardio referral for re- evaluation of heart murmur. Pt states she was wondering about nicotine patches, currently smoking 1/2 pack. Previously had mood changes with Chantix. Pt states she is having very bad neck pain, no injury. Transitions of Care InboundProblem ReviewProblem List was reviewed and/or updated during this visit.Medication Reconciliation & ReviewMedication List was reviewed and/or updated during this visit, including review of any mgus-lku-ttizyzw medications, herbal therapies, and/or supplements.Allergy ReviewAllergy List was reviewed and/or updated during this visit. Patient has no known allergies.Adult Preventive CareScreening Tobacco Screening: Smoking Status: current every day smoker (10/01/2019) Tobacco Use: Currently (10/01/2019) Advised to Quit: Yes (10/01/2019)Labs/Meds/Other Counseling-Nutrition and Physical Activity:BMI Interpretation: Healthy Weight (10/01/2019) Counseling: Done (10/01/2019) Physical Activity: Done (10/01/2019)Review of Systems General: Complains of fatigue. Denies loss of appetite, chills, dizziness, fever, headache. Cardiovascular: Complains of trouble breathing w/exertion. Denies chest pain, palpitations, feeling faint, peripheral edema. Respiratory: Complains of cough, shortness of breath, excessive sputum, wheezing. all improvingGastrointestinal: Denies nausea, vomiting, diarrhea, pain or di scomfort. Skin: Denies rash, redness, suspicious lesions. Neurologic: Denies weakness, feeling faint. Psychiatric: Complains of anxiety, feeling stressed. Physical ExamGeneral Appearance: well nourished, well hydrated, no acute distressEyes, External: conjunctivae and lids normal, EOMIRespiratory, Auscultation: clear to auscultation bilaterally; no rales, rhonchi, or wheezesRespiratory, Effort: no intercostal retractions or use of accessory musclesCardiovascular, Auscultation: S1, S2 audible; tachycardic but regular rate, systolic ejection murmur 2/4, no rubs or gallops appreciatedPeripheral Cir culation: no clubbing, cyanosis, edema, or varicositiesAbdomen: soft, non- tender, no masses, bowel sounds normalGait & Station: normalSkin, Inspection: good turgorOrientation: oriented to time, place, and personMood & Affect: anxious appearingJudgment & Insight: intactCare Management Plan Medication Adherence & Education Information on new prescriptions provided to patient/family/caregiver.Transitions of CareInboundRate Your HealthIn general, would you say your health is? FairAssessment & Plan Problems:Added: Unspecified bacterial pneumonia (KSL67-T91.9) Assessment: Instructions: Finish antibiotics per ER. Follow-up for worsening symptoms.Assessed:Tobacco use (ICD-305.1) (YEB96-Q58.0) Assessment: Instructions: Smoking cessation counseling was recommended with patient today. Nicotrol inhalers prescribed.GENERALIZED ANXIETY DISORDER (ICD-300.02) (UCD24-O52.1) Assessment: Instructions: Continue current Cymbalta and hydroxyzine at bedtime.Cardiac murmur, unspecified (VGQ86-Z23.1) Assessment: Instructions: Reschedule with cardiology, provided you with their office contact information today.Essential hypertension (ICD-401.9) (ITK24-K42) Assessment: Instructions: BP elevated today, but previously well controlled.Recommend reduced salt intake, cut back on caffeine and alcohol, increase physical activity. 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 Goal BP is <140/90, please call the office if your blood pressures are consistently running higher than that cutoff. Call 911 or report to the closest ER for chest pain, shortness of breath, dizziness, or passing out.Removed:Viral intestinal infection, unspecified (KPV60-K40.4)Patient Instructions/Care Plan: Unspecified bacterial pneumonia: Finish antibiotics per ER. Follow-up for worsening symptoms.Tobacco use: Smoking cessation counseling was recommended with patient today. Nicotrol inhalers prescribed.GENERALIZED ANXIETY DISORDER: Continue current Cymbalta and hydroxyzine at bedtime.Cardiac murmur- unspecified: Reschedule with cardiology, provided you with their office contact information today.Essential hypertension: BP elevated today, but previously well controlled.Recommend reduced salt intake, cut back on caffeine and alcohol, increase physical activity. 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 Goal BP is <140/90, please call the office if your blood pressures are consistently running higher than that cutoff. Call 911 or report to the closest ER for chest pain, shortness of breath, dizziness, or passing out. Plan developed in collaboration with patient and/or familyMedications:NICOTROL 10 MG INHALATION INHALERAVIDOXY 100 MG ORAL TABLETFUROSEMIDE 20 MG ORAL TABLETHYDROXYZINE HCL 50 MG ORAL TABLETCYMBALTA 30 MG ORAL CAPSULE DELAYED RELEASE PARTICLESCYMBALTA 60 MG ORAL CAPSULE DELAYED RELEASE PARTICLESALBUTEROL SULFATE HFA 108 (90 BASE) MCG/ACT INHALATION AEROSOL SOLUTIONALBUTEROL SULFATE (2.5 MG/3ML) 0.083% INHALATION NEBULIZATION SOLUTIONMETHYLPHENIDATE HCL 20 MG ORAL TABLETCETIRIZINE HCL 10 MG ORAL TABLETMONTELUKAST SODIUM 10 MG ORAL TABLETMedication Changes:Added: FUROSEMIDE 20 MG ORAL TABLET-take one tablet by mouth daily Qty: 30[Tablet] Refills: 2AVIDOXY 100 MG ORAL TABLET-take one tablet by mouth two times a day.New Prescription:HYDROXYZINE HCL 50 MG ORAL TABLET-take 2 tablets po daily at bedtime Qty: 60[Tablet] Refills: 2 Method: ElectronicNICOTROL 10 MG INHALATION INHALER-Take 1 inhaler up to 16 times daily prn Qty: 1[Kit] Refills: 1 Method: ElectronicAllergies:No Known Allergies (updated 10/01/2019) Information on new prescriptions provided to patient.Orders:Adult - Ofc Vst, EST, Level III [[id number]-02198] Follow-Up Return to clinic: as needed Clinical Visit Summary Completed Name Value Range Interpretation Code Description Data Nimo rce(s) Supporting Document(s) ID Date Data Source [id number] 09/24/2019 03:20:00 PM EDT [facility] DATE OF EXAMINATION: 09/24/2019 12:26 EDT CHEST 1 VIEW HISTORY: Shortness of breath TECHNIQUE: Single frontal radiograph of chest COMPARISON: 09/22/2019 FINDINGS: Previously noted interstitial markings have improved but not completelyresolved. Heart is normal in size. There is no pulmonary venous hypertension oreffusion. IMPRESSION: Improving interstitial markings bilaterally. Electronically signed in PS360 by: Jeffry Enamorado M.D. 09/24/2019 15:14 EDT Name Value Range Interpretation Code Description Data Nimo rce(s) Supporting Document(s) ID Date Data Source [id number] 09/24/2019 03:04:00 PM EDT [facility] Patient: MARIA G LEWIS Observation Rep ort - [facility].VisitID: [id number] [place] [address] [phone], [facility] Date/Time: 09/24/2019 12:13 Weight:62.5 kg (S). Height/Length:64 inches (S). BMI:23.7 PAST HISTORYProblems:Cervical Strain.ADD - Attention Deficit Disorder.Asthma.Pneumonia.Hypertension.Depression.Fibromyalgia. Additional Surgeries:Bilateral ankle surgery.Breast Biopsy.Cystectomy.Ectopic. Medications:Albuterol Sulfate Inhalation (Nebulization Solution (2.5 MG/3ML) 0.083%) 1 unit dose, q4h as needed, last dose 09/24/2019 am.Dexamethasone Oral (Tablet 4 mg) 2 tablets, daily, last dose 09/24/2019.Azithromycin Oral 250 mg, daily, last dose 09/24/2019.Albuterol Sulfate HFA Inhalation 2 puffs, as neede d, last dose 09/22/2019.Beet pill, daily, last dose 09/24/2019.Cetirizine HCl Oral 10 mg, daily, last dose 09/24/2019.Cymbalta Oral 120 mg, daily, last dose 09/24/2019.Echinacea Oral 1 capsule, daily, last dose 09/24/2019.Montelukast Sodium Oral 10 mg, daily every PM, last dose 09/23/2019.Ritalin Oral 20 mg, daily, last dose 09/24/2019.Vitamin D Oral (Tablet 50 MCG (2000 UT)) 1 tablet, daily, last dose 09/24/2019. Allergies:No Known Drug Allergy. FAMILY HISTORYNo significant family medical history. (Electronically signed by Mohit Rubin 09/24/2019 14:47) Name Value Range Interpretation Code Description Data [facility] rce(s) Supporting Document(s) ID Date Data Source [id number] 09/25/2019 12:05:00 PM EDT [facility] Name Value Range Interpretation Code Description Data [facility] rce(s) Supporting Document(s) LDH 209 IU/L 119-226 [facility] Performed at: RN - [facility] [place] [id number] Director: Janny Cleaning MD, Phone: [phone] ID Date Data Source [id number] 09/25/2019 12:05:00 PM EDT [facility] Name Value Range Interpretation Code Description Data [facility] rce(s) Supporting Document(s) LDH 209 IU/L 119-226 [facility] ID Date Data Source [id number] 09/24/2019 01:47:00 PM EDT [facility] Name Value Range Interpretation Code Description Data [facility] rce(s) Supporting Document(s) Adenovirus Not Detected Detected [facility] Coronavirus 229E Not Detected [facility] Coronavirus HKU1 Not Detected [facility] Coronavirus NL63 [facility] Detected [facility] Coronavirus OC43 [facility] Detected [facility]ed [facility] Sars Cov 2 Not Detected Detected Not [facility] Human Metapneumovirus Not Detected Detected Not [facility] Human Rhinovirus Not Detected Detected [facility] Influenza A Not Detected Detected Not [facility] Influenza B Not Detected Detected Not [facility] Parainfluenza Virus 1 Not Detected Detected Not [facility] Parainfluenza Virus 2 Not Detected Detected Not [facility] Parainfluenza Virus 3 Not Detected Detected Not [facility] Parainfluenza Virus 4 Not Detected Detected Not [facility] Respiratory Syncytial Virus Not Detected Detected Not [facility] Bordetella parapertus (LY1121) Not Detected Detected Not [facility] Bordetella pertussis (ptxP) Not Detected Detected Not [facility] Chlamydia pneumoniae Not Detected Detected Not [facility] Mycoplasma pneumoniae Not Detected Detected Not [facility] The Above results have been determined b y using the [employer] system.FilmArray is an automated in vitro diagnostic system thatutilizes nested multiplex Polymerase Chain Reaction (PCR)and high-resolution melting analysis to detect and identifymultiple nucleic acid targets from clinical specimens. ID Date Data Source [id number] 09/24/2019 01:28:00 PM EDT [facility] TSYSORDER [id number] Name Value Range Interpretation Code Description Data Nimo rce(s) Supporting Document(s) FERRITIN 62 ng/mL 8-252 [facility] ID Date Data Source [id number] 09/24/2019 01:23:00 PM EDT [facility] TSYSORDER [id number] Name Value Range Interpretation Code Description Data Nimo rce(s) Supporting Document(s) B-TYPE NATRIURETIC PEPTIDE 975 pg/ml 0-[address] *[address] [facility] ID Date Data Source [id number] 09/24/2019 01:23:00 PM EDT [facility] TSYSORDER [id number] Name Value Range Interpretation Code Description Data Nimo rce(s) Supporting Document(s) MAGNESIUM 1.8 mg/dL 1.8-2.4 [facility] ID Date Data Source [id number] 09/24/2019 01:23:00 PM EDT [facility] TSYSORDER [id number] Name Value Range Interpretation Code Description Data Nimo rce(s) Supporting Document(s) TROPONIN I < 0.017 ng/mL 0.0-0.056 [facility] ID Date Data Source [id number] 09/24/2019 01:23:00 PM EDT [facility] TSYSORDER [id number] Name Value Range Interpretation Code Description Data Nimo rce(s) Supporting Document(s) GLUCOSE 154 mg/dL 74-106 H [facility] BLOOD UREA NITROGEN 14 mg/dL 7-18 [facility] ital CREATININE 0.9 mg/dL 0.6-1.0 [facility] SODIUM 139 mmol/L 136-145 [facility] POTASSIUM 3.5 mmol/L 3.5-5.1 [facility] CHLORIDE 103 mmol/L 98-107 [facility] CO2 24 mmol/L 21-32 [facility] CALCIUM 8.9 mg/dL 8.5-10.1 [facility] ANION GAP 12.0 mmol/L 5-12 [facility] GLOMERULAR FILTRATION RATE 66 mL/min [facility] GFR IS CALCULATED IN mL/min/1.73m2 YANET L FUNCTION: >90MILDLY DECREASED: 60-89MILDY TO MODERATELY DECREASED: 45-59 MODERATELY TO SEVERELY DECREASED: 30-44SEVERELY DECREASED: 15-29RENAL FAILURE: <15 AST 18 U/L 15-37 [facility] ALT 22 U/L 12-78 [facility] ALKALINE PHOSPHATASE 64 U/L 46-116 [facility] pital TOTAL BILIRUBIN 0.3 mg/dL 0.2-1.0 [facility] TOTAL PROTEIN 7.1 g/dl 6.4-8.2 [facility] ALBUMIN 4.0 gm/dL 3.4-5.0 [facility] ID Date Data Source [id number] 09/24/2019 01:20:00 PM EDT [facility] TSYSORDER [id number] Name Value Range Interpretation Code Description Data Nimo rce(s) Supporting Document(s) DDIMER 0.45 mg/LFEU 0.19-0.60 [facility] ID Date Data Source [id number] 09/24/2019 01:20:00 PM EDT [facility] TSYSORDER [id number] Name Value Range Interpretation Code Description Data Nimo rce(s) Supporting Document(s) PARTIAL THROMBOPLASTIN TIME 21.6 SECONDS 21.4-30.2 [facility] ID Date Data Source [id number] 09/24/2019 01:20:00 PM EDT [facility] TSYSORDER [id number] Name Value Range Interpretation Code Description Data Nimo rce(s) Supporting Document(s) PROTHROMBIN TIME (PATIENT) 10.0 SECONDS 9.2-11.6 [facility] INR 0.96 0.87-1.06 [facility] ID Date Data Source [id number] 09/24/2019 01:18:00 PM EDT [facility] TSYSORDER [id number] Name Value Range Interpretation Code Description Data Nimo rce(s) Supporting Document(s) LACTIC ACID 1.7 mmol/L 0.4-2.0 [facility] ID Date Data Source [id number] 09/24/2019 01:00:00 PM EDT [facility] TSYSORDER [id number] Name Value Range Interpretation Code Description Data Nimo rce(s) Supporting Document(s) PH 7.36 7.31-7.41 [facility] VENOUS PCO2 40.2 mmHg 41-51 L [facility] VENOUS PO2 91 mmHg 35-42 H [facility] VENOUS BLODD O2 SATURATION 94.2 % 68-[address] [facility] VENOUS BLOOD HCO3 22.1 meq/L 24.0-25.0 L [facility] VENOUS BASE EXCESS -2.6 -3.0-3.0 [facility] VENOUS BLOOD CO2 23.3 mmol/L 23.0-32.0 [facility] ID Date Data Source [id number] 09/24/2019 12:54:00 PM EDT [facility] TSYSORDER [id number] Name Value Range Interpretation Code Description Data Nimo rce(s) Supporting Document(s) WHITE BLOOD COUNT 14.5 K/mm3 4.0-10.0 H [facility] RED BLOOD COUNT 4.22 M/mm3 4.00-5.50 [facility] HEMOGLOBIN 13.1 gm/dL 12.0-16.0 [facility] HEMATOCRIT 39.0 % 36.0-48.8 [facility] MEAN CELL VOLUME 92.4 fl 80-96 [facility] MEAN CORPUSCULAR HEMOGLOBIN 31.0 pg 27.0-31.0 [facility] MEAN CORPUSCULAR HGB CONC 33.6 g/dl 32.0-36.0 [facility] RED CELL DISTRIBUTION WIDTH 13.4 % 10.0-14.5 [facility] PLATELET COUNT 172 K/mm3 172-450 [facility] MEAN PLATELET VOLUME 11.7 fl 9.0-13.0 [facility] pital GRAN % 88.2 % 50-80.0 H [facility] IG% 0.1 % 0.0-0.2 [facility] LYMPH % 7.9 % 25.0-50.0 L [facility] MONO % 3.5 % 2.0-10.0 [facility] EOS % 0.1 % 0-5.0 [facility] BASO % 0.2 % 0.0-2.0 [facility] GRAN # 12.8 K/mm3 2.0-8.00 H [facility] IG# 0.0 K/mm3 0.0-0.2 [facility] LYMPH # 1.1 K/mm3 1.0-5.0 [facility] MONO # 0.5 K/mm3 0.10-1.20 [facility] EOS # 0.0 K/mm3 0.0-0.5 [facility] BASO # 0.0 K/mm3 0.0-0.2 [facility] ID Date Data Source [id number] 09/24/2019 11:24:00 AM EDT [facility] Patient: MARIA G LEWIS Observation Rep ort - [facility].VisitID: [id number] [place] [address] [phone], FRegistrasaint [facility] Date/Time: 09/22/2019 13:26 Weight:62.5 kg (S). Height/Length:64 inches (S). BMI:23.7 PAST HISTORYProblems:ADD - Attention Deficit Disorder.Asthma.Hypertension.Depression.Fibromyalgia. Additional Surgeries:Bilateral ankle surgery.Breast Biopsy.Cystectomy.Ectopic. Medications:Echinacea Oral 1 capsule, daily, last dose today.Beet pill, daily, last dose today.Vitamin D Oral (Tablet 50 MCG (1999 UT)) 1 tablet, daily, last dose today.Cetirizine HCl Oral 10 mg, daily, last dose today.Montelukast Sodium Oral 10 mg, daily every PM, last dose last night.Ritalin Oral 20 mg, daily, last dose today.Albuterol Sulfate HFA Inhalation 2 puffs, as needed, last dose today.Cymbalta Oral 120 mg, daily, last dose today (started taking it again Sunday). Allergies:No Known Drug Allergy. FAMILY HISTORYNegative. No significant family medical history. (Electronically signed by Mohit Epperson 09/22/2019 19:51) Weight:62.5 kg (S). Height/Length:64 inches (S). BMI:23.7 PAST HISTORYProblems:ADD - Attention Deficit Disorder.Asthma.Hypertension.Depression.Fibromyalgia. Additional Surgeries:Bilateral ankle surgery.Breast Biopsy.Cystectomy.Ectopic. Medications:Echinacea Oral 1 capsule, daily, last dose today.Beet pill, daily, last dose today.Vitamin D Oral (Tablet 50 MCG (1999 UT)) 1 tablet, daily, last dose today.Cetirizine HCl Oral 10 mg, daily, last dose today.Montelukast Sodium Oral 10 mg, daily every PM, last dose last night.Ritalin Oral 20 mg, daily, last dose today.Albuterol Sulfate HFA Inhalation 2 puffs, as needed, last dose today.Cymbalta Oral 120 mg, daily, last dose today (started taking it again Sunday). Allergies:No Known Drug Allergy. INSTRUCTIONSYour Current Medications: Your current home medications have been reviewed. CONTINUE TAKING THE FOLLOWING MEDICATIONS:Albuterol Sulfate HFA Inhalation : 2 puffs, Last: today, prn. Beet pill* : daily, Last: today. Cetirizine HCl Oral : 10 mg daily, Last: today. Cymbalta Oral : 120 mg daily, Last: today, started taking it again Sunday. Echinacea Oral : 1 capsule daily, Last: today. Montelukast Sodium Oral : 10 mg daily, Last: last night, every PM. Ritalin Oral : 20 mg daily, Last: today. Vitamin D Oral : Tablet 50 MCG (1999 UT), 1 tablet daily, Last: today. (Electronically signed by Mohit Esteves 09/23/2019 01:37) Addenda for MARIA G LEWIS VisitID: [id number] Date: 09/22/2019 09/24/2019 10:04LWBS/LWBT/AMA??? follow-up Left message for pt to please return call to the ED.(Electronically signed by Kary Lopez R.N. - 09/24/2019 10:04) 09/24/2019 11:22LWBS/LWBT/AMA??? follow-up Spoke with pt via telephone. Pt reports that she is still having SOB and anxiety. Pt reports that she is unable to get into her PCP and she called again this morning to try to get an appt. today because she had 2 anxiety attacks this am. Pt feels that she needs to be seen. Pt advised to return to the ED as needed and agrees. (Electronically signed by Kary Lopez R.N. - 09/24/2019 11:22) Name Value Range Interpretation Code Description Data Nimo rce(s) Supporting Document(s) ID Date Data Source [id number] 09/24/2019 10:16:00 AM EDT [facility] Patient: MARIA G LEWIS Observation Rep ort - [facility].VisitID: [id number] [place] [address] [phone], [facility] Date/Time: 09/22/2019 13:26 Weight:62.5 kg (S). Height/Length:64 inches (S). BMI:23.7 PAST HISTORYProblems:ADD - Attention Deficit Disorder.Asthma.Hypertension.Depression.Fibromyalgia. Additional Surgeries:Bilateral ankle surgery.Breast Biopsy.Cystectomy.Ectopic. Medications:Echinacea Oral 1 capsule, daily, last dose today.Beet pill, daily, last dose today.Vitamin D Oral (Tablet 50 MCG (1999 UT)) 1 tablet, daily, last dose today.Cetirizine HCl Oral 10 mg, daily, last dose today.Montelukast Sodium Oral 10 mg, daily every PM, last dose last night.Ritalin Oral 20 mg, daily, last dose today.Albuterol Sulfate HFA Inhalation 2 puffs, as needed, last dose today.Cymbalta Oral 120 mg, daily, last dose today (started taking it again Sunday). Allergies:No Known Drug Allergy. FAMILY HISTORYNegative. No significant family medical history. (Electronically signed by Mohit Epperson 09/22/2019 19:51) Weight:62.5 kg (S). Height/Length:64 inches (S). BMI:23.7 PAST HISTORYProblems:ADD - Attention Deficit Disorder.Asthma.Hypertension.Depression.Fibromyalgia. Additional Surgeries:Bilateral ankle surgery.Breast Biopsy.Cystectomy.Ectopic. Medications:Echinacea Oral 1 capsule, daily, last dose today.Beet pill, daily, last dose today.Vitamin D Oral (Tablet 50 MCG (1999 UT)) 1 tablet, daily, last dose today.Cetirizine HCl Oral 10 mg, daily, last dose today.Montelukast Sodium Oral 10 mg, daily every PM, last dose last night.Ritalin Oral 20 mg, daily, last dose today.Albuterol Sulfate HFA Inhalation 2 puffs, as needed, last dose today.Cymbalta Oral 120 mg, daily, last dose today (started taking it again Sunday). Allergies:No Known Drug Allergy. INSTRUCTIONSYour Current Medications: Your current home medications have been reviewed. CONTINUE TAKING THE FOLLOWING MEDICATIONS:Albuterol Sulfate HFA Inhalation : 2 puffs, Last: today, prn. Beet pill* : daily, Last: today. Cetirizine HCl Oral : 10 mg daily, Last: today. Cymbalta Oral : 120 mg daily, Last: today, started taking it again Sunday. Echinacea Oral : 1 capsule daily, Last: today. Montelukast Sodium Oral : 10 mg daily, Last: last night, every PM. Ritalin Oral : 20 mg daily, Last: today. Vitamin D Oral : Tablet 50 MCG (1999 UT), 1 tablet daily, Last: today. (Electronically signed by Mohit Esteves 09/23/2019 01:37) Addenda for MARIA G LEWIS VisitID: [id number] Date: 09/22/2019 09/24/2019 10:04LWBS/LWBT/AMA??? follow-up Left message for pt to please return call to the ED.(Electronically signed by Kary Gayle 09/24/2019 10:04) Name Value Range Interpretation Code Description Data Nimo rce(s) Supporting Document(s) ID Date Data Source [id number] 09/24/2019 12:00:00 AM EDT [facility] Name Value Range Interpretation Code Description Data Nimo rce(s) Supporting Document(s) [address] [facility] This lab was ordered by [facility] aboratory and reported by [facility]. ID Date Data Source [id number] 09/23/2019 01:40:00 AM EDT [facility] Patient: MARIA G LEWIS Observation Rep ort - [facility].VisitID: [id number] [place] [address] [phone], FRegistration Date/Time: 09/22/2019 13:26 Weight:62.5 kg (S). Height/Length:64 inches (S). BMI:23.7 PAST HISTORYProblems:ADD - Attention Deficit Disorder.Asthma.Hypertension.Depression.Fibromyalgia. Additional Surgeries:Bilateral ankle surgery.Breast Biopsy.Cystectomy.Ectopic. Medications:Echinacea Oral 1 capsule, daily, last dose today.Beet pill, daily, last dose today.Vitamin D Oral (Tablet 50 MCG (2000 UT)) 1 tablet, daily, last dose today.Cetirizine HCl Oral 10 mg, daily, last dose today.Montelukast Sodium Oral 10 mg, daily every PM, last dose last night.Ritalin Oral 20 mg, daily, last dose today.Albuterol Sulfate HFA Inhalation 2 puffs, as needed, last dose today.Cymbalta Oral 120 mg, daily, last dose today (started taking it again Sunday). Allergies:No Known Drug Allergy. FAMILY HISTORYNegative. No significant family medical history. (Electronically signed by Mohit Epperson 09/22/2019 19:51) Weight:62.5 kg (S). Height/Length:64 inches (S). BMI:23.7 PAST HISTORYProblems:ADD - Attention Deficit Disorder.Asthma.Hypertension.Depression.Fibromyalgia. Additional Surgeries:Bilateral ankle surgery.Breast Biopsy.Cystectomy.Ectopic. Medications:Echinacea Oral 1 capsule, daily, last dose today.Beet pill, daily, last dose today.Vitamin D Oral (Tablet 50 MCG (1999 UT)) 1 tablet, daily, last dose today.Cetirizine HCl Oral 10 mg, daily, last dose today.Montelukast Sodium Oral 10 mg, daily every PM, last dose last night.Ritalin Oral 20 mg, daily, last dose today.Albuterol Sulfate HFA Inhalation 2 puffs, as needed, last dose today.Cymbalta Oral 120 mg, daily, last dose today (started taking it again Sunday). Allergies:No Known Drug Allergy. INSTRUCTIONSYour Current Medications: Your current home medications have been reviewed. CONTINUE TAKING THE FOLLOWING MEDICATIONS:Albuterol Sulfate HFA Inhalation : 2 puffs, Last: today, prn. Beet pill* : daily, Last: today. Cetirizine HCl Oral : 10 mg daily, Last: today. Cymbalta Oral : 120 mg daily, Last: today, started taking it again Sunday. Echinacea Oral : 1 capsule daily, Last: today. Montelukast Sodium Oral : 10 mg daily, Last: last night, every PM. Ritalin Oral : 20 mg daily, Last: today. Vitamin D Oral : Tablet 50 MCG (1999 [place]), 1 tablet daily, Last: today. (Electronically signed by Mohit Esteves 09/23/2019 01:37) Name Value Range Interpretation Code Description Data Nimo e(s) Supporting Document(s) ID Date Data Source [id number] 09/22/2019 06:22:00 PM EDT [facility] DATE OF EXAMINATION: 09/22/2019 15:[address] PULMONARY ANGIOGRAM HISTORY: Chest pain TECHNIQUE: This CT exam was performed using the following dose reduction technique:automated exposure control, adjustment of mA and/or kV according to thepatient's size, and use of iterative reconstruction technique. FINDINGS: Pulmonary Arteries: There are no filling defects in the main, right and leftpulmonary arteries or their branches.Aorta: NormalLungs: Scarring is present in the lung apices. Parenchymal densities are presentin the left lower lobe consistent with atelectasis or infiltrate.Pleural space: Small bilateral pleural effusions are present.Heart: The cardiac silhouette is enlarged.Mediastinum: Normal. Spine: Degenerative change is present in the spine. IMPRESSION: #1. there is no pulmonary embolism.2. Left lower lobe atelectasis or infiltrate.3. Small bilateral pleural effusions. Electronically signed in PS360 by: Fer Alves M.D. 09/22/2019 18:17 EDT Name Value Range Interpretation Code Description Data Nimo rce(s) Supporting Document(s) ID Date Data Source [id number] 09/22/2019 09:42:00 PM EDT [facility] [id number] Name Value Range Interpretation Code Description Data Nimo rce(s) Supporting Document(s) B-TYPE NATRIURETIC PEPTIDE 628 pg/ml 0-125 *H [facility] ID Date Data Source [id number] 09/22/2019 06:18:00 PM EDT [facility] [id number] Name Value Range Interpretation Code Description Data Nimo rce(s) Supporting Document(s) TROPONIN I < 0.017 ng/mL 0.0-0.056 [facility] ID Date Data Source [id number] 09/22/2019 05:17:00 PM EDT [facility] [id number] Name Value Range Interpretation Code Description Data Nimo rce(s) Supporting Document(s) Adenovirus Not Detected Detected Not [facility] Coronavirus 229E Not Detected Detected [facility] Coronavirus HKU1 Not Detected Detected [facility] Coronavirus NL63 Not Detected Detected [facility] Coronavirus OC43 Not Detected Detected Not [facility] Sars Cov 2 Not Detected Detected Not [facility] Metapneumovirus Not Detected Detected Not [facility] Human Rhinovirus Not Detected Detected [facility] Influenza A Not Detected Detected [facility] Influenza B Not Detected Detected [facility] Parainfluenza Virus 1 Not Detected Detected [facility] Parainfluenza Virus 2 Not Detected Detected [facility] Parainfluenza Virus 3 Not Detected Detected Not [facility] Parainfluenza Virus 4 Not Detected Detected [facility] Respiratory Syncytial Virus Not Detected Detected Not [facility] Bordetella parapertus (VQ3412) Not Detected Detected Not [facility] Bordetella pertussis (ptxP) Not Detected Detected Not [facility] Chlamydia pneumoniae Not Detected Detected Not [facility] Mycoplasma pneumoniae Not Detected Detected Not [facility] The Above results have been determined b y using the [facility] FilmArray system.FilmArray is an automated in vitro diagnostic system thatutilizes nested multiplex Polymerase Chain Reaction (PCR)and high-resolution melting analysis to detect and identifymultiple nucleic acid targets from clinical specimens. ID Date Data Source [id number] 09/22/2019 04:03:00 PM EDT [facility] DATE OF EXAMINATION: 09/22/2019 14:00 EDT CHEST 1 VIEW HISTORY: Chest pain TECHNIQUE: Single frontal radiograph of chest COMPARISON: CT scan of 12/05/2017 FINDINGS: Newly developed nonspecific interstitial markings are noted. Atypical pneumoniais not excluded. Cardiac silhouette and pulmonary vascularity is within normallimits. IMPRESSION: Newly developed interstitial markings. Atypical pneumonia is not excluded. Electronically signed in PS360 by: Jeffry Enamorado M.D. 09/22/2019 15:57 EDT Name Value Range Interpretation Code Description Data Nimo bon(s) Supporting Document(s) ID Date Data Source [id number] 09/22/2019 04:02:00 PM [facility]T [facility] DATE OF EXAMINATION: 09/22/2019 15:11 EDT CHEST 2 VIEWS HISTORY: Chest pain TECHNIQUE: PA and lateral radiographs of the chest COMPARISON: CT scan of 12/05/2017 FINDINGS: Nonspecific interstitial markings are noted. Cardiac silhouette and pulmonaryvascularity is within normal limits. There is no definite effusion. IMPRESSION: Nearly developed nonspecific interstitial markings. Atypical/viral pneumonia isnot excluded. Electronically signed in PS360 by: Jeffry Enamorado M.D. 09/22/2019 15:57 EDT Name Value Range Interpretation Code Description Data Nimo rce(s) Supporting Document(s) ID Date Data Source [id number] 09/22/2019 03:33:00 PM EDT [facility] [id number] Name Value Range Interpretation Code Description Data Nimo rce(s) Supporting Document(s) DDIMER 0.71 mg/LFEU 0.19-0.60 [facility] ID Date Data Source [id number] 09/22/2019 02:29:00 PM EDT [facility] [id number] Name Value Range Interpretation Code Description Data Nimo rce(s) Supporting Document(s) TSH 0.83 uIU/mL 0.36-3.74 [facility] ID Date Data Source [id number] 09/22/2019 02:29:00 PM EDT [facility] TSYSORDER [id number] Name Value Range Interpretation Code Description Data Nimo rce(s) Supporting Document(s) FREE T4 0.95 ng/dL 0.76-1.46 [facility] ID Date Data Source [id number] 09/22/2019 02:22:00 PM EDT [facility] TSYSORDER [id number] Name Value Range Interpretation Code Description Data Nimo rce(s) Supporting Document(s) PARTIAL THROMBOPLASTIN TIME 23.0 SECONDS 21.4-30.2 [facility] ID Date Data Source [id number] 09/22/2019 02:22:00 PM EDT [facility] TSYSORDER [id number] Name Value Range Interpretation Code Description Data Nimo rce(s) Supporting Document(s) PROTHROMBIN TIME (PATIENT) 9.9 SECONDS 9.2-11.6 [facility] INR 0.95 0.87-1.06 [facility] ID Date Data Source [id number] 09/22/2019 02:21:00 PM EDT [facility] TSYSORDER [id number] Name Value Range Interpretation Code Description Data Nimo rce(s) Supporting Document(s) MAGNESIUM 1.8 mg/dL 1.8-2.4 [facility] ID Date Data Source [id number] 09/22/2019 02:21:00 PM EDT [facility] TSYSORDER [id number] Name Value Range Interpretation Code Description Data Nimo rce(s) Supporting Document(s) TROPONIN I < 0.017 ng/mL 0.0-0.056 [facility] ID Date Data Source [id number] 09/22/2019 02:21:00 PM EDT [facility] [id number] Name Value Range Interpretation Code Description Data Nimo rce(s) Supporting Document(s) LIPASE 97 U/L 73-393 [facility] ID Date Data Source [id number] 09/22/2019 02:21:00 PM EDT [facility] [id number] Name Value Range Interpretation Code Description Data Nimo rce(s) Supporting Document(s) GLUCOSE 106 mg/dL 74-106 [facility] BLOOD UREA NITROGEN 10 mg/dL 7-18 [facility] CREATININE 0.7 mg/dL 0.6-1.0 [facility] SODIUM 139 mmol/L 136-145 [facility] POTASSIUM 4.2 mmol/L 3.5-5.1 [facility] CHLORIDE 104 mmol/L 98-107 [facility] CO2 26 mmol/L 21-32 [facility] CALCIUM 8.4 mg/dL 8.5-10.1 L [facility] ANION GAP 9.0 mmol/L 5-12 [facility] GLOMERULAR FILTRATION RATE 89 mL/min [facility] GFR IS CALCULATED IN mL/min/1.73m2 YANET L FUNCTION: >90MILDLY DECREASED: 60-89MILDY TO MODERATELY DECREASED: 45-59 MODERATELY TO SEVERELY DECREASED: 30-44SEVERELY DECREASED: 15-29RENAL FAILURE: <15 AST 17 U/L 15-37 [facility] ALT 17 U/L 12-78 [facility] ALKALINE PHOSPHATASE 67 U/L 46-116 [facility] TOTAL BILIRUBIN 0.1 mg/dL 0.2-1.0 L [facility] TOTAL PROTEIN 6.4 g/dl 6.4-8.2 [facility] ALBUMIN 3.6 gm/dL 3.4-5.0 [facility] ID Date Data Source [id number] 09/22/2019 02:06:00 PM EDT [facility] TSYSORDER [id number] Name Value Range Interpretation Code Description Data Nimo rce(s) Supporting Document(s) WHITE BLOOD COUNT 8.4 K/mm3 4.0-10.[address] [facility] al RED BLOOD COUNT 4.19 M/mm3 4.00-5.50 [facility] HEMOGLOBIN 13.0 gm/dL 12.0-16.0 [facility] HEMATOCRIT 38.4 % 36.0-48.8 [facility] MEAN CELL VOLUME 91.6 fl 80-96 [facility] MEAN CORPUSCULAR HEMOGLOBIN 31.0 pg 27.0-31.0 [facility] MEAN CORPUSCULAR HGB CONC 33.9 g/dl 32.0-36.0 [facility] RED CELL DISTRIBUTION WIDTH 13.0 % 10.0-14.5 [facility] PLATELET COUNT 169 K/mm3 172-450 L [facility] MEAN PLATELET VOLUME 11.7 fl 9.0-13.0 [facility] pital GRAN % 62.5 % 50-80.0 [facility] IG% 0.0 % 0.0-0.2 [facility] LYMPH % 29.1 % 25.0-50.0 [facility] MONO % 5.9 % 2.0-10.0 [facility] EOS % 2.1 % 0-5.0 [facility] BASO % 0.4 % 0.0-2.0 [facility] GRAN # 5.3 K/mm3 2.0-8.00 [facility] IG# 0.0 K/mm3 0.0-0.2 [facility] LYMPH # 2.5 K/mm3 1.0-5.0 [facility] MONO # 0.5 K/mm3 0.10-1.20 [facility] EOS # 0.2 K/mm3 0.0-0.5 [facility] BASO # 0.0 K/mm3 0.0-0.2 [facility] ID Date Data Source [id number] 09/22/2019 12:00:00 AM EDT [facility] Name Value Range Interpretation Code Description Data Nimo rce(s) Supporting Document(s) [address] [facility] This lab was ordered by [facility]oratory and reported by [facility]. ID Date Data Source [id number] 08/15/2019 09:40:40 AM EDT [facility] Measurements & CalculationsHeight: 64 inches (5 ft. 4 in.) 162.56 cm Weight: 136 pounds 6 oz. 61.99 kg Body Mass Index (BMI): 23.49BMI Interpretation: Healthy WeightBody Surface Area (BSA): 1.66Weight Management Education Done (Nutrition/Physical Activity)Vital SignsTemperature: 99.2F tympanic Pulse Rate: 122 beats/minuteRespiratory Rate: 18 respirations/minuteBlood Pressure: 154/98 left arm sitting automaticO2 Saturation: 96% room airVital Signs performed by: Helen Nunez LPN, August 15, 2019 9:48 AMInitial Intake Information From: patientRoom #: 1Infectious Disease / Travel ScreeningRecent travel for you or any close contacts? NoHave you had any close contact with anyone diagnosed with or under investigation for COVID-19 (coronavirus)? NoFever? NoRespiratory symptoms: cough, cold, congestion, shortness of breath, difficulty breathing? NoLoss of smell? NoLoss of taste? NoS moking, Tobacco, Vaping or Smoke Exposure StatusSmoke Status: current every day smokerTobacco Use: YesAdv to Quit: YesDo you vape? NoMenstrual HistoryLast Menstrual Period (LMP): 07/18/2019Any possibility of ? NoHealthcare HistorySince your last office visit...Have you been admitted to the hospital? NoHave you been to an emergency room (ER) or urgent care clinic? NoHave you seen another healthcare provider? NoHave you seen a dentist? NoIntake performed by: Helen Nunez LPN, August 15, 2019 9:43 AMRate Your HealthIn general, would you say your health is? FairPain AssessmentAre you currently having any pain which... You would like your provider to address? Yes Affects your activity level? YesDepression Screening - PHQ-2Over the last two weeks, have you... Had little interest or pleasure in doing things? Not at all Been feeling down, depressed, or hopeless? Not at all PHQ-2 Score: 0Pain AssessmentPain ScaleNumeric Rating Scale: 4 / 10Location: headacheDuration: 2 daysCharacter/Quality: aching and throbbingIs the pain radiating? NoScreening, Brief Intervention, & Referral to Treatment (SBIRT)Pre-Screening Questions How many times have you have 4 or more drinks in a day? 0How many times have you used an illegal drug or used a prescription medication for a non-medical reason? 0Performed by: Helen Nunez LPN, August 15, 2019 9:44 AMPatient History Medical History:thyroid cystAsthmaHypertensionADD FibromyalgiaSurgical History:tube removalankle castingleft ring finger sxFamily History:thyroid issues - SisterSocial/Personal History: Age of First Use: 9Advised to Quit/Tobacco Education: YesChief ComplaintmigrainesHistory of Present Illness (HPI)48 yo female here for migraines over the last 2 days.Pt states she worked 2 overnights 08/08/2019 and 08/11/2019 and has felt sick since. She is still acclimating and hasn't been sleeping during the days to adjust. She also had vomiting/diarrhea 08/11 and 08/12, reports coworkers with similar symptoms. States she has had a migraine since. Hasn't taken any medication for the headache because she didn't have any at home, feels better today, dull headache. HPI performed by: Rubio GERARDO, August 15, 2019 9:57 AMProblem ReviewProblem List was reviewed and/or updated during this visit.Medication Reconciliation & ReviewMedication List was reviewed and/or updated during this visit, including review of any [id number] medications, herbal therapies, and/or supplements.Allergy ReviewAllergy List was reviewed and/or updated during this visit. Patient has no known allergies.Adult Preventive CareProvider Calculated and Reviewed all Clinical Protocols for patient today. Screening Tobacco Screening: Smoking Status: current every day smoker (08/15/2019) Tobacco Use: Currently (08/15/2019) Advised to Quit: Yes (08/15/2019)Labs/Meds/Other Counseling- Nutrition and Physical Activity:BMI Interpretation: Healthy Weight (08/15/2019) Counseling: Done (08/15/2019) Physical Activity: Done (08/15/2019)Cancer Screening ColonoscopyReviewed:Today's Comments: refusedReview of Systems General: Complains of loss of appetite, headache, feeling ill. Denies dizziness, fever. Eyes: Denies blurring of vision, double vision. Cardiovascul ar: Denies chest pain, palpitations, feeling faint, peripheral edema. Respiratory: Denies cough, difficulty breathing, shortness of breath. Gastrointestinal: Complains of nausea, vomiting, diarrhea. Denies pain or discomfort, abdominal pain. Neurologic: Denies weakness, feeling faint. Psychiatric: Complains of feeling stressed. Physical ExamGeneral Appearance: well nourished, well hydrated, no acute distressRespiratory, Auscultation: clear to auscultation bilaterally; no rales, rhonchi, or wheezesCardiovascular, Auscultation: S1, S2 audible; tachycardic but regular rate, systolic ejection murmur 2/4, no rubs or gallops appreciatedPeripheral Circulation: no clubbing, cyanosis, edema, or varicositiesAbdomen: soft, non-tender, no masses, bowel sounds normalGait & Station: normalSkin, Inspection: no rashes, lesions, or ulcerations, minimally sluggish turgorOrientation: anxious appearingMood & Affect: anxious appearingJudgment & Insight: intactRate Your HealthIn general, would you say your health is? FairAssessment & Plan Problems:Added: Viral intestinal infection, unspecified (VPV63-F20.4) Assessment: Instructions: Supportive measures: rest, increase fluids, bland diet. Appears to be self limited.Migraine with aura, not intractable, without status migrainosus (ICD10- G43.109) Assessment: Instructions: Improving. Likely multifactorial: sleep deprivation, acute illness with mild dehydration, and stress. Ibuprofen, rest, relaxation.Patient Instructions/Care Plan: Viral intestinal infection- unspecified: Supportive measures: rest, increase fluids, bland diet. Appears to be self limited.Migraine with aura- not intractable- without status migrainosus: Improving. Likely multifactorial: sleep deprivation, acute illness with mild dehydration, and stress. Ibuprofen, rest, relaxation. Plan developed in collaboration with patient and/or familyMedications:ALBUTEROL SULFATE HFA 108 (90 BASE) MCG/ACT INHALATION AEROSOL SOLUTIONALBUTEROL SULFATE (2.5 MG/3ML) 0.083% INHALATION NEBULIZATION SOLUTIONMETHYLPHENIDATE HCL 20 MG ORAL TABLETCETIRIZINE HCL 10 MG ORAL TABLETMONTELUKAST SODIUM 10 MG ORAL TABLETAllergies:No Known Allergies (updated 08/01/2019) Orders:Adult - Ofc Vst, EST, Level III [[id number]] Follow-Up Return to clinic: as needed Clinical Visit Summary Declined Multiple Vital SignsVitals #2BP: 146/101 Performed by: Helen Nunez LPN, August 15, 2019 10:18 AMComments: left arm Name Value Range Interpretation Code Description Data Nimo rce(s) Supporting Document(s) ID Date Data Source [id number] 08/12/2019 05:30:00 AM EDT [facility] Name Value Range Interpretation Code Description Data Nimo rce(s) Supporting Document(s) SARS CORONAVIRUS 2 RNA [facility] This lab was ordered by [facility] and reported by [facility]. ID Date Data Source [id number] 08/08/2019 03:35:00 PM EDT [facility] Name Value Range Interpretation Code Description Data Nimo rce(s) Supporting Document(s) SARS CORONAVIRUS 2 RNA [facility] This lab was ordered by [facility] and reported by [facility]. ID Date Data Source [id number] 08/05/2019 03:32:00 PM EDT [facility] Name Value Range Interpretation Code Description Data Nimo rce(s) Supporting Document(s) SARS CORONAVIRUS 2 RNA [facility] This lab was ordered by [facility] and reported by [facility]. ID Date Data Source [id number] 08/01/2019 12:12:00 PM EDT [facility] Name Value Range Interpretation Code Description Data Nimo rce(s) Supporting Document(s) SARS CORONAVIRUS 2 RNA [facility] This lab was ordered by [facility] and reported by [facility]. ID Date Data Source [id number] 08/01/2019 09:52:39 AM EDT [facility] Measurements & CalculationsHeight: 64 inches (5 ft. 4 in.) 162.56 cm Weight: 144 pounds 2 oz. 65.51 kg Body Mass Index (BMI): 24.83BMI Interpretation: Healthy WeightBody Surface Area (BSA): 1.70Vital SignsTemperature: 97.0F tympanic Pulse Rate: 79 beats/minuteRespiratory Rate: 18 respirations/minuteBlood Pressure: 126/80 right arm sitting automaticO2 Saturation: 97% room airVital Signs performed by: Helen Nunez LPN, August 01, 2019 9:59 AMVital Signs performed by: Rubio GERARDO, August 01, 2019 10:07 AMInitial Intake Information From: patientRoom #: 2Infectious Disease / Travel ScreeningRecent travel for you or any close contacts? NoHave you had any close contact with anyone diagnosed with or under investigation for COVID-19 (coronavirus)? NoFever? NoRespiratory symptoms: cough, cold, congestion, shortness of breath, difficulty breathing? NoLoss of smell? NoLoss of taste? NoS moking, Tobacco, Vaping or Smoke Exposure StatusSmoke Status: current every day smokerTobacco Use: YesAdv to Quit: YesDo you vape? NoPassive Smoke Exposure: YesMenstrual HistoryLast Menstrual Period (LMP): 07/18/2019Healthcare HistorySince your last office visit...Have you been admitted to the hospital? NoHave you been to an emergency room (ER) or urgent care clinic? NoHave you seen another healthcare provider? NoHave you seen a dentist? NoIntake performed by: Helen Nunez LPN, August 01, 2019 9:54 AMDepression Screening - PHQ-2Over the last two weeks, have you... Had little interest or pleasure in doing things? Not at all Been feeling down, depressed, or hopeless? Not at all PHQ-2 Score: 0Anxiety Screening - KATHYA-2Over the last two weeks, have you been... Feeling nervous, anxious, or on edge? Not at all Unable to stop or control worrying? Not at all KATHYA-2 Score: 0Screening, Brief Intervention, & Referral to Treatment (SBIRT)Pre-Screening Questions How many times have you have 4 or more drinks in a day? 0How many times have you used an illegal drug or used a prescription medication for a non-medical reason? 0Performed by: Helen Nunez LPN, August 01, 2019 9:55 AMPatient History Medical History:thyroid cystAsthmaHypertensionADD FibromyalgiaSurgical History:tube removalankle castingleft ring finger sxFamily History:thyroid issues - SisterSocial/Personal History: Age of First Use: 9 Advised to Quit/Tobacco Education: YesChief Complaintbleeding over last 2 weeksHistory of Present Illness (HPI)48 yo female with history of irregular menstration over the last year. Pt states she had her period last month then it stopped and started again 2 weeks later and now has been bleeding non stop for 2 weeks.Pt needs note for [facility] regarding the BP. States at her new work physical at [employer] her BP was elevated, but she admits to stress that day. Highest was 160s/90s. Admits to recent hx of being told she had a heart murmur, states she was referred to cardiology but never made it. HPI performed by: Rubio GERARDO, August 01, 2019 10:08 AMProblem ReviewProblem List was reviewed and/or updated during this visit.Medication Reconciliation & ReviewMedication List was reviewed and/or updated during this visit, including review of any xzgh-lom-ueebpjl medications, herbal therapies, and/or supplements.Allergy ReviewAllergy List was reviewed and/or updated during this visit. Patient has no known allergies.Adult Preventive CareProvider Calculated and Reviewed all Clinical Protocols for patient today. Screening Tobacco Screening: Smoking Status: current every day smoker (08/01/2019) Tobacco Use: Currently (08/01/2019) Advised to Quit: Yes (08/01/2019)Review of Systems General: Denies loss of appetite, chills, dizziness, fatigue, fever, headache, feeling ill. Cardiovascular: Denies chest pain, palpitations, feeling faint, peripheral edema, elevated blood pressure, decreased heart rate. Respiratory: Denies cough, difficulty breathing, shortness of breath. Gastrointestinal: Denies nausea, vomiting, diarrhea, constipation, pain or discomfort. Genitourinary: Complains of see HPI, prolonged menstrual period, abnormal vaginal bleeding. Denies pelvic pain, vaginal discharge. Neurologic: Denies weakness, feeling faint. Physical ExamGeneral Appearance: well nourished, well hydrated, no acute distressEyes, External: conjunctivae and lids normal, EOMIRespiratory, Auscul tation: clear to auscultation bilaterally; no rales, rhonchi, or wheezesRespiratory, Effort: no intercostal retractions or use of accessory musclesCardiovascular, Auscultation: S1, S2 audible; RRR, systolic ejection murmur 2/4, no rubs or gallops appreciatedPeripheral Circulation: no clubbing, cyanosis, edema, or varicositiesAbdomen: soft, non-tender, no masses, bowel sounds normalGait & Station: normalSkin, Inspection: no rashes, lesions, or ulcerationsOrientation: oriented to time, place, and personMood & Affect: no depression, anxiety, or agitationJudgment & Insight: intactAssessment & Plan Problems:Added: BMI 24.0-24.9 (ICD-V85.1) (AAI09-H06.24)Cardiac murmur, unspecified (AEL32-O99.1) Assessment: Instructions: Referral to cardiology for further evaluation. BP control is important at this time.Irregular menstruation, unspecified (WFC08-M07.6) Assessment: Instructions: Please let me know if this continues or worsens, then will consider an ultrasound. Otherwise, likely irregular due to perimenopausal state. Call to reschedule well woman exam and pap when you are not experiencing any bleeding.Assessed:Essential hypertension (ICD-401.9) (JKL58-O08) Assessment: Instructions: Well controlled today without any medications. Letter generated for work purposes. Will continue to monitor with routine visits. Recommend reduced salt intake, cut back on caffeine and alcohol.Prediabetes (ICD10- R73.03): based on 07/2018 A1c Assessment: Instructions: Complete labs when able.Tobacco use (ICD-305.1) (MVL31-A91.0) Assessment: Instructions: Smoking cessation counseling was recommended with patient today.ADHD (ICD- 314.01) (BLW08-S32.9) Assessment: Instructions: Stable on current Methylphenidate. Call when refills are due.Patient Instructions/Care Plan: E ssential hypertension: Well controlled today without any medications. Letter generated for work purposes. Will continue to monitor with routine visits. Recommend reduced salt intake, cut back on caffeine and alcohol.Cardiac murmur- unspecified: Referral to cardiology for further evaluation. BP control is important at this time.Prediabetes: Complete labs when able.Tobacco use: Smoking cessation counseling was recommended with patient today.ADHD: Stable on current Methylphenidate. Call when refills are due.Irregular menstruation- unspecified: Please let me know if this continues or worsens, then will consider an ultrasound. Otherwise, likely irregular due to perimenopausal state. Call to reschedule well woman exam and pap when you are not experiencing any bleeding. Plan developed in collaboration with patient and/or familyMedications:ALBUTEROL SULFATE HFA 108 (90 BASE) MCG/ACT INHALATION AEROSOL SOLUTIONALBUTEROL SULFATE (2.5 MG/3ML) 0.083% INHALATION NEBULIZATION SOLUTIONMETHYLPHENIDATE HCL 20 MG ORAL TABLETCETIRIZINE HCL 10 MG ORAL TABLETMONTELUKAST SODIUM 10 MG ORAL TABLETMedication Changes:Removed:CHLORTHALIDONE 50 MG ORAL TABLET-qdAllergies:No Known Allergies (updated 08/01/2019) Orders:Cardiology Consult [CPT-39000] Adult - Ofc Vst, EST, Level III [CPT-09489] Follow-Up Return to clinic: in 90 days for follow upAdditional Follow-Up: ADHD/HTNClinical Visit Summary Completed Name Value Range Interpretation Code Description Data Nimo rce(s) Supporting Document(s) ID Date Data Source [id number] 07/30/2019 07:00:00 AM EDT [facility] Name Value Range Interpretation Code Description Data Nimo rce(s) Supporting Document(s) SARS CORONAVIRUS 2 RNA [facility] This lab was ordered by [facility] and reported by [facility]. ID Date Data Source [id number] 07/24/2019 03:06:00 PM EDT [facility] Name Value Range Interpretation Code Description Data Nimo rce(s) Supporting Document(s) SARS CORONAVIRUS 2 RNA [facility] This lab was ordered by [facility] and reported by [facility]. ID Date Data Source [id number] 07/14/2019 11:32:27 AM EDT [facility] Measurements & CalculationsHeight: 64 inches (5 ft. 4 in.) 162.56 cm Weight: 142 pounds 2 oz. 64.60 kg Body Mass Index (BMI): 24.48BMI Interpretation: Healthy WeightBody Surface Area (BSA): 1.69Weight Management Education Done (Nutrition/Physical Activity)Vital SignsTemperature: 98.6F tympanic Pulse Rate: 92 beats/minuteRespiratory Rate: 18 respirations/minuteBlood Pressure: 147/83 left arm sitting automaticO2 Saturation: 98% room airVital Signs performed by: Helen Nunez LPN, July 14, 2019 11:47 AMInitial Intake Information From: patientRoom #: 1Infectious Disease / Travel ScreeningRecent travel for you or any close contacts? YesHave you had any close contact with anyone diagnosed with or under investigation for COVID-19 (coronavirus)? NoFever? NoRespiratory symptoms: cough, cold, congestion, shortness of breath, difficulty breathing? NoLoss of smell? NoLoss of taste? NoD etails: month and half ago from NCSmoking, Tobacco, Vaping or Smoke Exposure StatusSmoke Status: current every day smokerTobacco Use: YesAdv to Quit: YesDo you vape? NoPassive Smoke Exposure: YesMenstrual HistoryLast Menstrual Period (LMP): 06/11/2019Any possibility of ? NoHealthcare HistorySince your last office visit...Have you been admitted to the hospital? NoHave you been to an emergency room (ER) or urgent care clinic? NoHave you seen another healthcare provider? NoHave you seen a dentist? NoIntake performed by: Helen Nunez LPN, July 14, 2019 11:37 AMRate Your HealthIn general, would you say your health is? FairPain AssessmentAre you currently having any pain which... You would like your provider to address? Yes Affects your activity level? YesDepression Screening - PHQ-2Over the last two weeks, have you... Had little interest or pleasure in doing things? Not at all Been feeling down, depressed, or hopeless? Not at all PHQ-2 Score: 0Anxiety Screening - KATHYA-2Over the last two weeks, have you been... Feeling nervous, anxious, or on edge? Not at all Unable to stop or control worrying? Not at all KATHYA-2 Score: 0Pain AssessmentPain ScaleNumeric Rating Scale: 7 / 10Location: back/neckDuration: chronicCharacter/Quality: aching and pressureIs the pain radiating? NoPRAPARE Sociodemographic Characteristics Race: White Ethnicity: Not or Preferred Language: EnglishFamily and Home Address: [address] [place] [address] What is your housing situation today? I have housing Are you worried about losing your housing? NoMoney and Resources What is the highest level of school that you have finished? some college Employed? Yes Your current work situation? PT Insurance: Managed Care FidelisIn the past year, have you or any family members you live with been unable to get any of the following when it was really needed? Denies Insecurity: food, utilities, phone, legal services, other Admits Insecurity: clothing, child careIn the past year, have you had trouble affording costs associated with health insurance (such as deductibles, co-payments, etc.)? NoSocial and Emotional Health How often do you see or talk to people that you care about and feel close to? 3 to 5 times a week How stressed are you? SomewhatAdditional Optional Domains In the past 3 months, have you spent more than 2 nights in a row in a usp, jail, assisted center or juvenile correctional facility? No Has lack of transportation kept you from medical appointments or from getting your medications? NoIn the past year, have you had trouble getting any of the following when it was really needed (check all that apply)?noneIn the past year, have you had trouble paying the costs associated with health care or medicine (such as co-payments, costs for services, prices of medicines)? NoHow confident are you that you can control and manage most of your health problems? Very confident Are you a refugee? No (Country of origin: [place]) Do you feel physically and emotionally safe where you live? Yes In the past year, have you been afraid of a partner, ex-partner? NoScreening, Brief Intervention, & Referral to Treatment (SBIRT)Pre-Screening Questions How many times have you have 4 or more drinks in a day? 0How many times have you used an illegal drug or used a prescription medication for a non- medical reason? 0Performed by: Helen Nunez LPN, July 14, 2019 11:41 AMPatient History Medical History:thyroid cystAsthmaHypertensionADD FibromyalgiaSurgical History:tube removalankle castingleft ring finger sxFamily History:thyroid issues - SisterSocial/Personal History: Age of First Use: 9Advised to Quit/Tobacco Education: YesChief Complaintannual examHistory of Present Illness (HPI)48 yo female here to re-establish care. Recently moved to [facility] from [place]. Pt states she doesn't really have any concerns at this time. Pt states she does need med refills. Pt states she has been off Cymbalta for the last 3 weeks, due to running out, but feels her moods have been good and no depression. Not interested in restarting at this time. [place] appt in [place] was about 3 months, was being seen every 3 months. Believes routine labs due now. Has been off of chlorthalidone for about 4 months, states BPs were 120s/80s without the medication. She believes today's BP is high due to recent stress. Pt reports recently she has been having neck/back pain, states currently sleeping an air mattress while her possessions are still in storage. Took two old Vicodin tablets (old personal Rx), but states now she is concerned about a drug screen for a new job she is to be starting.HPI performed by: Rubio GERARDO, July 14, 2019 11:57 AMProblem ReviewProblem List was reviewed and/or updated during this visit.Medication Reconciliation & ReviewMedication List was reviewed and/or updated during this visit, including review of any hpwd-lit-arxmsxd medications, herbal therapies, and/or supplements.Allergy ReviewAllergy List was reviewed and/or updated during this visit. Patient has no known allergies.Adult Preventive CareProvider Calculated and Reviewed all Clinical Protocols for patient today. Screening Tobacco Screening: Smoking Status: current every day smoker (07/14/2019) Tobacco Use: Currently (07/14/2019) Advised to Quit: Yes (07/14/2019)Labs/Meds/Other Counseling-Nutrition and Physical Activity:BMI Interpretation: Healthy Weight (07/14/2019) Counseling: Done (07/14/2019) Physical Activity: Done (07/14/2019)Review of Systems General: Denies loss of appetite, chills, dizziness, fatigue, fever, headache, feeling ill. Eyes: Denies blurring of vision, double vision. Ears/Nose/Throat: Denies earache, decreased hearing, nasal congestion, sore throat, swollen glands. Cardiovascular: Denies chest pain, palpitations, feeling faint, peripheral edema. Respiratory: Denies cough, difficulty breathing, shortness of breath, wheezing. Gastrointestinal: Denies nausea, vomiting, diarrhea, constipation, pain or discomfort. Musculoskeletal: Complains of see HPI, back pain, joint pain, muscle aches, stiffness. Denies recent injury. Skin: Denies rash, suspicious lesions. Neurologic: Denies weakness, numbness/tingling, feeling faint. Psychiatric: Denies depression, anxiety. Physical ExamGeneral Appearance: well nourished, well hydrated, no acute distressEyes, External: conjunctivae and lids normal, EOMIExternal Ears: normal, no lesions or deformitiesHearing: grossly intactOtoscopy: canals clear, tympanic membranes intact, no fluid, light reflex intact bilaterallyExternal Nose: normal, no lesions or deformitiesNasal: mucosa, septum, and turbinates normal, nares patentLips/Teeth/Gums: no gingival inflammation, no labial lesionsPharynx: tongue normal, posterior pharynx without erythema or exudate, no thrush/aphthous ulcerNeck: supple, no masses, trachea midlineThyroid: no nodules, masses, tenderness, or enlargementRespiratory, Auscultation: clear to auscultation bilaterally; no rales, rhonchi, or wheezesRespiratory, Effort: no intercostal retractions or use of accessory musclesCardiovascular, Auscultation: S1, S2 audible; no murmur, rub, or gallop; RRRPeripheral Circulation: no clubbing, cyanosis, edema, or varicositiesAbdomen: soft, non-tender, no masses, bowel sounds normalGait & Station: normalSkin, Inspection: no rashes, lesions, or ulcerationsOrientation: oriented to time, place, and personMood & Affect: no depression, anxiety, or agitationJudgment & Insight: intactRate Your HealthIn general, would you say your health is? FairAssessment & Plan Problems:Added: Tobacco use (ICD-305.1) (GMZ38-D43.0)Passive smoke exposure (ICD-V15.89) (ICD10- Z77.22)Essential hypertension (ICD-401.9) (ZGC94-N95) Assessment: Instructions: Recently controlled without chlorthalidone. Complete labs and repeat BP at next visit, if this remains elevated then we will need to consider restarting prior BP medication.Recommend reduced salt intake, cut back on caffeine and alcohol, increase physical activity. 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 Goal BP is <140/90, please call the office if your blood pressures are consistently running higher than that cutoff. Call 911 or report to the closest ER for chest pain, shortness of breath, dizziness, or passing out.Prediabetes (WKX37-M09.03): based on 07/2018 A1c Assessment: Instructions: Recommend low carbohydrate diet: reduce pasta, bread, potatoes, rice. If you do eat carbohydrates, better choices are whole wheat and brown rice products. Recommend portion control and avoidance of soda and sugary foods. Increase physical activity and monitor weight.Fibromyalgia (ICD-729.1) (LZE56-G33.7) Assessment: Instructions: Monitor, supportive measures.Change d:From: Dx of Encounter for general adult medical examination with abnormal findings (ICD-V70.0) (MTZ99-O62.01) To: Encounter for general adult medical examination without abnormal findings (UWI19-S93.00)Assessed:Encounter for general adult medical examination without abnormal findings (UGW33-F37.00) Assessment: Instructions: Recommend annual medical appointments. Recommend routine dental and vision care.ADHD (ICD-314.01) (PBQ64-D09.9) Assessment: Instructions: Stable on current Methylphenidate. Refills sent.Allergic rhinitis (ICD-477.9) (UKX03-E91.9) Assessment: Instructions: Refills sent for cetirizine and montelukast.Asthma (bronchial or allergic) (ICD-493.90) (ICD10- J45.909) Assessment: Instructions: Refills sent for albuterol rescue puffer, continue allergy medications as prescribed.GENERALIZED ANXIETY DISORDER (ICD-300.02) (LHF75-J40.1) Assessment: Instructions: Stable without medications. Call for any concerns, if you would like to resume prior Duloxetine.Encounter for screening for malignant neoplasm of colon (ICD-V76.51) (AWR95-B91.11) Assessment: Instructions: Instructions reviewed for FIT testing as an alternative for colon cancer screening. Patient is aware if FIT is positive then a colonoscopy will be recommended.Removed:Atypical chest pain (ICD-786.59) (ZXX10-A02.89), Anxiety (ICD-300.00) (UWE46-O11.9), Encounter for screening for other metabolic disorders (SOJ43-E93.228)Patient Instructions/Care Plan: Encounter for general adult medical examination without abnormal findings: Recommend annual medical appointments. Recommend routine dental and vision care.ADHD: Stable on current Methylphenidate. Refills sent.Essential hypertension: Recently controlled without chlorthalidone. Complete labs and repeat BP at next visit, if this remains elevated then we will need to consider restarting prior BP medication.Recommend reduced salt intake, cut back on caffeine and alcohol, increase physical activity. We reviewed the half-way risks associated with uncontrolled high blood pressure, including stroke and heart attack. Goal BP is <140/90, please call the office if your blood pressures are consistently running higher than that cutoff. Call 911 or report to the closest ER for chest pain, shortness of breath, dizziness, or passing out.Prediabetes: Recommend low carbohydrate diet: reduce pasta, bread, potatoes, rice. If you do eat carbohydrates, better choices are whole wheat and brown rice products. Recommend portion control and avoidance of soda and sugary foods. Increase physical activity and monitor weight.Allergic rhinitis: Refills sent for cetirizine and montelukast.Asthma (bronchial or allergic): Refills sent for albuterol rescue puffer, continue allergy medications as prescribed.Fibromyalgia: Monitor, supportive measures.GENERALIZED ANXIETY DISORDER: Stable without medications. Call for any concerns, if you would like to resume prior Duloxetine.Encounter for screening for malignant neoplasm of colon: Instructions reviewed for FIT testing as an alternative for colon cancer screening. Patient is aware if FIT is positive then a colonoscopy will be recommended. Plan developed in collaboration with patient and/or fa milyMedications:ALBUTEROL SULFATE HFA 108 (90 BASE) MCG/ACT INHALATION AEROSOL SOLUTIONALBUTEROL SULFATE (2.5 MG/3ML) 0.083% INHALATION NEBULIZATION SOLUTIONMETHYLPHENIDATE HCL 20 MG ORAL TABLETCETIRIZINE HCL 10 MG ORAL TABLETMONTELUKAST SODIUM 10 MG ORAL TABLETCHLORTHALIDONE 50 MG ORAL TABLETMedication Changes:Refilled:CETIRIZINE HCL 10 MG ORAL TABLET-Take 1 tablet po daily Qty: 90[Tablet] Refills: 3 Method: ElectronicMONTELUKAST SODIUM 10 MG ORAL TABLET-Take 1 tablet po daily qhs Qty: 90[Tablet] Refills: 3 Method: ElectronicMETHYLPHENIDATE HCL 20 MG ORAL TABLET-Take 1 tablet po bid; MDD 2 tablets Qty: 60[Tablet] Refills: 0 Method: ElectronicALBUTEROL SULFATE HFA 108 (90 BASE) MCG/ACT INHALATION AEROSOL UUUMRUEK-1-6 puffs q 4-6 hour prn wheezing Qty: 1[Inhalation] Refills: 11 Method: ElectronicRemoved:OMEPRAZOLE 20 MG ORAL TABLET DELAYED RELEASE-qd, ALBUTEROL SULFATE (5 MG/ML) 0.5% INHALATION NEBULIZATION SOLUTION-PRN, * VITAMIN D2 50,000-once weekly, PROVENTIL HFA 108 (90 BASE) MCG/ACT INHALATION AEROSOL SOLUTION-1 -2 puiffs q 4-6 hour prn wheezing, DULOXETINE HCL 60 MG ORAL CAPSULE DELAYED RELEASE PARTICLES-qd, DULOXETINE HCL 30 MG ORAL CAPSULE DELAYED RELEASE PARTICLES-qdChanged: To: CETIRIZINE HCL 10 MG ORAL TABLET-Take 1 tablet po daily Qty: 90[Tablet] Refills: 3 To: MONTELUKAST SODIUM 10 MG ORAL TABLET-Take 1 tablet po daily qhs Qty: 90[Tablet] Refills: 3 To: METHYLPHENIDATE HCL 20 MG ORAL TABLET-Take 1 tablet po bid; MDD 2 tablets Qty: 60[Tablet] Refills: 0Allergies:No Known Allergies (updated 07/14/2019) Orders:COMP METABOLIC PANEL [CPT-29774] CBC W/DIFF [CPT-850 25] HgBA1c [CPT-24453] LIPID PANEL [CPT-69465] TSH [CPT-33912] T-4 free [CPT- 71405] Vitamin D 250H Unspecified [CPT-54184] Preventive, New, (40-64) [CPT- 67655] Follow-Up Return to clinic: in 30 days for follow upAdditional Follow-Up: WWE/lab review/BP recheckClinical Visit Summary CompletedMedications:ALBUTEROL SULFATE HFA 108 (90 BASE) MCG/ACT INHALATION AEROSOL SOLUTION (ALBUTEROL SULFATE) 1-2 puffs q 4-6 hour prn wheezing #1[Inhalation] x 11 Route:INHALATION Entered and Authorized by: Rubio GERARDO Method used: Electronically to [facility] ([facility]) [address] [place] [address] Fax: Note to Pharmacy: Route: INH; RxID: [id number] HCL 20 MG ORAL TABLET (METHYLPHENIDATE HCL) Take 1 tablet po bid; MDD 2 tablets #60[Tablet] x 0 Entered and Authorized by: Rubio GERARDO Method used: Electronically to [facility] (retail) [address] [place] [address] Note to Pharmacy: Route: ORAL; RxID: [id number] SODIUM 10 MG ORAL TABLET (MONTELUKAST SODIUM) Take 1 tablet po daily qhs #90[Tablet] x 3 Entered and Authorized by: Rubio GERARDO Method used: Electronically to [facility] (retail) [address] [place] [address] Note to Pharmacy: Route: ORAL; RxID: [id number] HCL 10 MG ORAL TABLET (CETIRIZINE HCL) Take 1 tablet po daily #90[Tablet] x 3 Entered and Authorized by: Rubio GERARDO Method used: Electronically to [facility] (retail) [address] [place] [id number] Note to Pharmacy: Route: ORAL; RxID: [id number] signed by Rubio GERARDO on 07/24/2019 at 10:21 AM Name Value Range Interpretation Code Description Data Nimo rce(s) Supporting Document(s) Procedure Vital Signs ID Date Data Source UNK Name Value Range Interpretation Code Description Data Source(s) Body weight 2432 [oz_av] 2432 [oz_av] SIRIA ([facility]) Systolic blood pressure 144 mm[Hg] 144 mm[Hg] A THENA ([facility]) Body mass index (BMI) [Ratio] 26.1 kg/m2 26.1 k g/m2 SIRIA ([facility]) Body height 64 [in_i] 64 [in_i] SIRIA ([facility]) Diastolic blood pressure 90 mm[Hg] 90 mm[Hg] SIRIA ([facility]) Body weight 2432 [oz_av] 2432 [oz_av] SIRIA ([facility]) Systolic blood pressure 144 mm[Hg] 144 mm[Hg] A [facility] ([facility]) Body mass index (BMI) [Ratio] 26.1 kg/m2 26.1 k g/m2 SIRIA ([facility]) Body height 64 [in_i] 64 [in_i] SIRIA ([facility]) Diastolic blood pressure 90 mm[Hg] 90 mm[Hg] SIRIA ([facility]) Body weight 2370.08 [oz_av] 2370.08 [oz_av] ATH SHAKEEL ([facility]) Systolic blood pressure 139 mm[Hg] 139 mm[Hg] [facility] Body height 64 [in_i] 64 [in_i] SIRIA ([facility]) Diastolic blood pressure 86 mm[Hg] 86 mm[Hg] SIRIA ([facility]) Body weight 2370.08 [oz_av] 2370.08 [oz_av] ATH SHAKEEL ([facility]) Systolic blood pressure 139 mm[Hg] 139 mm[Hg] A [facility] ([facility]) Body height 64 [in_i] 64 [in_i] SIRIA ([facility]) Diastolic blood pressure 86 mm[Hg] 86 mm[Hg] SIRIA ([facility]) Body weight 2246.08 [oz_av] 2246.08 [oz_av] ATH SHAKEEL ([facility]) Systolic blood pressure 157 mm[Hg] 157 mm[Hg] [facility]) Systolic blood pressure 155 mm[Hg] 155 mm[Hg] [facility]) Body height 64 [in_i] 64 [in_i] SIRIA ([facility]) Diastolic blood pressure 84 mm[Hg] 84 mm[Hg] SIRIA ([facility]) Diastolic blood pressure 84 mm[Hg] 84 mm[Hg] SIRIA ([facility]) Body weight 2246.08 [oz_av] 2246.08 [oz_av] ATH SHAKEEL ([facility]) Systolic blood pressure 157 mm[Hg] 157 mm[Hg] [facility]) Systolic blood pressure 155 mm[Hg] 155 mm[Hg] [facility]) Body height 64 [in_i] 64 [in_i] SIRIA ([facility]) Diastolic blood pressure 84 mm[Hg] 84 mm[Hg] SIRIA ([facility]) Diastolic blood pressure 84 mm[Hg] 84 mm[Hg] SIRIA ([facility]) Body weight 2182.08 [oz_av] 2182.08 [oz_av] ATH SHAKEEL ([facility]) Systolic blood pressure 154 mm[Hg] 154 mm[Hg] A THENA ([facility]) Systolic blood pressure 146 mm[Hg] 146 mm[Hg] A THENA ([facility]) Body height 64 [in_i] 64 [in_i] SIRIA ([facility]) Diastolic blood pressure 98 mm[Hg] 98 mm[Hg] SIRIA ([facility]) Diastolic blood pressure 101 mm[Hg] 101 mm[Hg] SIRIA ([facility]) Body weight 2182.08 [oz_av] 2182.08 [oz_av] ATH SHAKEEL ([facility]) Systolic blood pressure 154 mm[Hg] 154 mm[Hg] A THENA ([facility]) Systolic blood pressure 146 mm[Hg] 146 mm[Hg] A [facility]) Body height 64 [in_i] 64 [in_i] SIRIA ([facility]) Diastolic blood pressure 98 mm[Hg] 98 mm[Hg] SIRIA ([facility]) Diastolic blood pressure 101 mm[Hg] 101 mm[Hg] SIRIA ([facility]) Body weight 2306.08 [oz_av] 2306.08 [oz_av] ATH SHAKEEL ([facility]) Systolic blood pressure 126 mm[Hg] 126 mm[Hg] A THENA ([facility]) Body height 64 [in_i] 64 [in_i] SIRIA ([facility]) Diastolic blood pressure 80 mm[Hg] 80 mm[Hg] SIRIA ([facility]) Body weight 2306.08 [oz_av] 2306.08 [oz_av] ATH SHAKEEL ([facility]) Systolic blood pressure 126 mm[Hg] 126 mm[Hg] A [facility] ([facility]) Body height 64 [in_i] 64 [in_i] SIRIA ([facility]) Diastolic blood pressure 80 mm[Hg] 80 mm[Hg] SIRIA ([facility]) Body weight 2274.08 [oz_av] 2274.08 [oz_av] ATH SHAKEEL ([facility]) Systolic blood pressure 147 mm[Hg] 147 mm[Hg] A THENA ([facility]) Body height 64 [in_i] 64 [in_i] SIRIA ([facility]) Diastolic blood pressure 83 mm[Hg] 83 mm[Hg] SIRIA ([facility]) Body weight 2274.08 [oz_av] 2274.08 [oz_av] A[facility] [facility]) Systolic blood pressure 147 mm[Hg] 147 mm[Hg] [facility] ([facility]) Body height 64 [in_i] 64 [in_i] [facility] ([facility]) Diastolic blood pressure 83 mm[Hg] 83 mm[Hg] [facility] ([facility]) Body mass index (BMI) [Ratio] 22.3 kg/m2 22.3 k g/m2 [facility] ([facility], [facility]) Body height 65 [in_i] 65 [in_i] [facility] ([facility], [facility]) 5'5" Body weight 134.00 [lb_av] 134.00 [lb_av] [facility] ([facility], [facility]) Body temperature 97.8 [degF] 97.8 [degF] [facility] ([facility], [facility]) Oxygen saturation in Arterial blood by Pulse oximetry 98 % 98 % [facility] ([facility], [facility]) Respiratory rate 17 /min 17 /min [facility] ( [facility], [facility]) Heart rate 115 /min 115 /min [facility] ([facility], [facility]) Diastolic blood pressure 83 mm[Hg] 83 mm[Hg] [facility] ([facility], [facility]) Systolic blood pressure 125 mm[Hg] 125 mm[Hg] M [facility] ([facility], [facility]) Patient Treatment Plan of Care Planned Activity Planned Date Details Description Data Source (s) Prednisone 20 MG Oral Tablet [facility] ([facility]) Levofloxacin 500 MG Oral Tablet [facility] ([facility]) doxycycline hyclate 100 MG Oral Tablet [facility] ([facility]) Dexamethasone 4 MG Oral Tablet [facility] ([facility]) Azithromycin 250 MG Oral Tablet [facility] ([facility]) Prednisone 20 MG Oral Tablet [facility] ([facility]) Levofloxacin 500 MG Oral Tablet [facility] ([facility]) doxycycline hyclate 100 MG Oral Tablet [facility] ([facility]) Dexamethasone 4 MG Oral Tablet [facility] ([facility]) Azithromycin 250 MG Oral Tablet [facility] ([facility])
[2020-03-16] MEDS ORDERED: CETI-24 (02:37)
[2020-03-16] MEDS ORDERED: FURO20TA2 (02:37)
[2020-03-16] MEDS ORDERED: DULO1CAP5 PO (02:37)
[2020-03-16] MEDS ORDERED: MONT5TAB2 (02:37)
[2020-03-16] MEDS ORDERED: METH20TA29 (02:37)
[2020-03-16] MEDS ORDERED: TIZA4TAB4 (02:37)
[2020-03-16] MEDS ORDERED: HYDR50TA70 (02:37)
[2020-03-16 03:23] LABS: BASO # 0.1 10^3/uL (0.0-0.2); BASO % 0.6 % (0.0-1.0); EOS # 0.2 10^3/uL (0.0-0.5); EOS % 2.3 % (0.0-3.0); HEMOGLOBIN 11.9 g/dl (12.0-15.5); LYMPH # 2.6 10^3/uL (1.5-5.0); LYMPH % 28.1 % (24.0-44.0); MEAN CORPUSCULAR HEMOGLOBIN 27.5 pg (27.0-33.0); MEAN CORPUSCULAR HGB CONC 30.5 g/dl (32.0-36.5); MEAN CORPUSCULAR VOLUME 90.3 fl (80.0-96.0); MONO % 10.5 % (0.0-5.0); NEUTROPHILS # 5.4 10^3/uL (1.5-8.5); PLATELET COUNT, AUTOMATED 190 10^3/uL (150-450); RED BLOOD COUNT 4.32 10^6/uL (4.00-5.40); WHITE BLOOD COUNT 9.2 10^3/uL (4.0-10.0)
[2020-03-16 03:48] LABS: HCG, SERUM QUALITATIVE NEGATIVE (NEGATIVE)
[2020-03-16 03:50] LABS: ALBUMIN 3.9 GM/DL (3.2-5.2); ALT/SGPT 78 U/L (12-78); BILIRUBIN,DIRECT 0.2 MG/DL (0.0-0.2); BILIRUBIN,TOTAL 0.7 MG/DL (0.2-1.0); BLOOD UREA NITROGEN 13 MG/DL (7-18); CALCIUM LEVEL 8.4 MG/DL (8.5-10.1); CARBON DIOXIDE LEVEL 26 MEQ/L (21-32); CHLORIDE LEVEL 110 MEQ/L (98-107); CREATININE FOR GFR 0.93 MG/DL (0.55-1.30); GLOMERULAR FILTRATION RATE > 60.0 (>51); GLUCOSE, FASTING 103 MG/DL (70-100); LIPASE 125 U/L (73-393); POTASSIUM SERUM 4.3 MEQ/L (3.5-5.1); SODIUM LEVEL 143 MEQ/L (136-145); TOTAL PROTEIN 6.1 GM/DL (6.4-8.2)
--- OUTSIDE RECORDS SUMMARY | 2020-03-16 03:52 | CCD ---
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 Name Role Phone PETROFF, TIARA PA Unavailable [...] YAIR MD Unavailable Unavailable Bryant, L Vera GAMBLING CASHIER Unavailable Unavailable Bryant, L Vera GAMBLING CASHIER Unavailable Unavailable [place], L Vera GAMBLING CASHIER Unavailable Unavailable Bryant, L Vera GAMBLING CASHIER Unavailable Unavailable Bryant, L Vera GAMBLING CASHIER Unavailable Unavailable Bryant, L Vera GAMBLING CASHIER Unavailable Unavailable Bryant, L Vera GAMBLING CASHIER Unavailable Unavailable [place], L Vera GAMBLING CASHIER Unavailable Unavailable [place], L Vera GAMBLING CASHIER Unavailable Unavailable Bryant, L Vera GAMBLING CASHIER Unavailable Unavailable Bryant, L Vera GAMBLING CASHIER Unavailable Unavailable [place], L Vera GAMBLING CASHIER Unavailable Unavailable Bryant, L Vera GAMBLING CASHIER Unavailable Unavailable [place], L Vera GAMBLING CASHIER Unavailable Unavailable [place], L Vera GAMBLING CASHIER Unavailable Unavailable [place], L Vera GAMBLING CASHIER Unavailable Unavailable [place], L Vera GAMBLING CASHIER Unavailable Unavailable Bryant, L Vera GAMBLING CASHIER Unavailable Unavailable [place], L Vera GAMBLING CASHIER Unavailable Unavailable Bryant, L Vera GAMBLING CASHIER Unavailable Unavailable [place], L Vera GAMBLING CASHIER Unavailable Unavailable [place], L Vera GAMBLING CASHIER Unavailable Unavailable [place], L Vera GAMBLING CASHIER Unavailable Unavailable Bryant, L Vera GAMBLING CASHIER Unavailable Unavailable [place], L Vera GAMBLING CASHIER Unavailable Unavailable Bryant, L Vera GAMBLING CASHIER Unavailable Unavailable [place], L Vera GAMBLING CASHIER Unavailable Unavailable [place], L Vera GAMBLING CASHIER Unavailable Unavailable Bryant, L Vera GAMBLING CASHIER Unavailable Unavailable Bryant, L Vera GAMBLING CASHIER Unavailable Unavailable [place], L Vera GAMBLING CASHIER Unavailable Unavailable Anel Redd MD Unavailable Unavailable [...] Unavailable Unavailable Anel Redd MD Unavailable Unavailable nAel Redd MD Unavailable Unavailable Anel Redd MD [...] Unavailable DICKSTEIN, E ROSS MD Unavailable Unavailable [facility], RFROST THOMPSON AKIN BERGERON Unavailable Unavailable Re-disclosure [...] is protected by Article 27-F of the [facility] Public Health law. If you continue you may have access to information: Regarding HIV / AIDS; Provided by facilities licensed or operated by the [facility] Office of Mental Health; or Provided by the [facility] Office for People With Developmental Disabilities. If such information is present, then the following [facility] mandated warning applies: This information has [...] law may result in a fine or prison sentence or both. A general authorization for the release of medical or other information is NOT sufficient authorization for further disc losure. Allergies and Adverse Reactions Type Description Substance Reaction Status Data Source(s ) Drug allergy No Known Drug Allergies No Known Drug Allergies [facility] Drug allergy No Known Allergies No Known Allergies [facility] Allergy to substance Allergy to substance Duloxetine Hcl [place] ([facility]) Allergy to substance Allergy to substance Duloxetine Hcl [place] ([facility]) Drug allergy CYMBALTA CYMBALTA overheating, sweating U [facility] Family History Family Member Name Family Member Gender Family Member Status Date o f Status Description Data Source(s) Unknown Male Problem [facility] ([facility]) Encounters Encounter Providers Location Date Indications Data Source(s ) Outpatient Attender: Anel Redd MD SJP.JAELYN-SJP.JAELYN 03/05 12:00:00 AM EST - 03/15/2020 11:41:18 AM EST [facility] Outpatient Attender: YAIR GERMAIN MD ER-2EAST 03/12/19 06:57:00 PM EST - 03/13/2020 02:44:00 PM EST [facility] Patient discharged. Emergency Attender: TIARA Nealer: Aleja Hurtado [facility]- EMERGENCY ROOM 03/12/2020 11:27:00 AM EST - 03/12/2020 11:27:00 AM [facility] Patient discharged. Outpatient [facility] 03/12/2020 12:00:00 AM EST eCW1 ([facility]) Isidra Castaneda RPA-C: [address] [place] [address] [address], [place] [address], Ph. Attender: ISIDRA CASTANEDA [place] [facility] - [facility] Medical 03/12/2020 12:00:00 AM EST [place] ([facility]) ANTONIO Vang: [address] [facility], [facility] [address], [place] [address], Ph. Attender: ISIDRA CASTANEDA [place] [facility] - [facility] 03/12/2020 12:00:00 AM [facility] ([facility]) Emergency Attender: LANCE MARSHALL PAReferrer: Dee Dee Hurtado [facility] EM[facility]-ER 01/16/2020 11:09:00 PM EST - 01/16/2020 11:29:00 PM [facility] Patient discharged. Outpatient Attender: NATALIA BERGERON [facility] 03/2019 02:49:01 PM EST [facility] Outpatient Attender: NATALIA BERGERON [facility] 12/03 08:26:01 AM EDT [facility] Emergency Attender: ELVIE MAHONEY JRReferrer: Vera wong GAMBLING CASHIER 12/13/2019 10:45:00 AM EDT - 12/13/2019 11:00:00 AM EDT [facility] Patient discharged. Outpatient Attender: NATALIA BERGERON [facility] 11/05 01:36:01 PM EDT [facility] Outpatient Attender: RUBIO ALVAREZ [facility] 12/01/2019 11:04:04 AM EDT [facility] Outpatient Attender: NATALIA BERGERON [facility] 11/2019 05:39:00 PM EDT [facility] Outpatient Attender: NATALIA BERGERON [facility] 10/03 07:55:00 AM EDT [facility] Outpatient Attender: RUBIO ALVAREZ [facility] 10/09/2019 12:00:39 AM EDT [facility] Outpatient Attender: RUBIO ALVAREZ [facility] 10/08/2019 02:40:01 PM EDT [facility] Outpatient Attender: [facility] 07/2019 02:39:02 PM EDT [facility] Outpatient Attender: NATALIA BERGERON [facility] 07/2019 09:47:02 AM EDT [facility] Outpatient Attender: RFROST THOMPSON PA RUBIO [facility] 07/2019 09:37:02 AM EDT [facility] Outpatient Attender: RUBIO MARIEC [facility] 10/01/2019 03:56:00 PM EDT [facility] Emergency Attender: KRYSTIN CHIANGeferrer: Germán Oneal GAMBLING CASHIER EMERGENCY ROOM-ER 09/24/2019 01:22:00 PM EDT - 09/24/2019 02:52:00 PM EDT [facility] Patient discharged. Emergency Attender: LUCIANO Nealer: Phillip Hurtado GAMBLING CASHIER EMERGENCY ROOM-ER 09/22/2019 02:01:00 PM EDT - 09/22/2019 09:41:00 PM EDT [facility] Patient discharged. Outpatient Attender: RFROST THOMPSON PA RUBIO [facility] 09/02 01:13:06 PM EDT [facility] Outpatient Attender: RFROST THOMPSON PA RUBIO [facility] 09/02 05:25:00 PM EDT [facility] Outpatient Attender: RFROST THOMPSON PA RUBIO [facility] 09/02 04:16:01 PM EDT [facility] Outpatient Attender: RFROST THOMPSON PA RUBIO [facility] 09/2019 05:48:01 PM EDT [facility] Outpatient Attender: RFROST THOMPSON PA RUBIO [facility] 08/03 10:22:01 AM EDT [facility] Outpatient Attender: RUBIO THOMPSON RPA-C [facility] 08/15/2019 10:14:00 AM EDT [facility] Outpatient Attender: RFROST THOMPSON PA RUBIO [facility] 08/03 10:13:01 AM EDT [facility] Outpatient Attender: RFROST THOMPSON PA RUBIO [facility] 08/03 10:53:00 AM EDT [facility] Outpatient Attender: RFROST THOMPSON PA RUBIO [facility] 10/2019 11:36:01 AM EDT [facility] Outpatient Attender: RFROST THOMPSON PA RUBIO [facility] 05/2019 02:41:02 PM EDT [facility] Outpatient Attender: NATALIA THOMPSON AKIN RUBIO [facility] 05/2019 08:24:02 AM EDT [facility] Outpatient Attender: NATALIA AMBRIZEMERITA [facility] 04/2019 12:48:01 PM EDT [facility] Outpatient Attender: RUBIO ALVAREZ [facility] 08/01/2019 10:22:03 AM EDT [facility] Outpatient Attender: NATALIA [facility]OMPSON [facility]IN [facility] 07/04 09:42:01 AM EDT [facility] Outpatient Attender: RUBIO ALVAREZ [facility] 07/24/2019 10:22:02 AM EDT [facility] Outpatient Attender: NATALIA THOMPSON AKIN BERGERON [facility] 07/04 10:22:01 AM EDT [facility] Outpatient Attender: RUBIO ALVAREZ [facility] 07/14/2019 12:22:04 PM EDT [facility] Outpatient Attender: BEVERLEY ARAGON MD 07/14/2019 11:33:02 A M EDT [facility] Outpatient Attender: BEVERLEY ARAGON MD 07/11/2019 03:17:00 P M EDT [facility] Outpatient Attender: BEVERLEY ARAGON MD 07/11/2019 02:43:02 P M EDT [facility] Outpatient Attender: NENO silva 06/24/2019 01:00:00 PM EDT [facility] ([facility]) Outpatient Attender: BEVERLEY ARAGON MD 05/27/2019 09:01:07 P M EDT [facility] Emergency Attender: WINSTON GERARDO EMERGENCY ROOM- ER 12/05/2017 11:52:00 AM EDT - 12/05/2017 02:30:00 PM [facility] Outpatient Attender: RUBIO ALVAREZ 01/09/2017 09:16:00 AM [facility] Outpatient Attender: ERIK CLARK MD 12/22/2016 12:02:00 PM [facility] Medications Medication Brand Name Start Date Product Form Dose Route Admi nistrative Instructions Pharmacy Instructions Status Indications Reaction Description Data Source(s) PPD- TB Intradermal Test 06/24/2019 12:00:00 AM EDT completed [facility] ([facility], [facility]) Medication administered onsite Dexamethasone 4 MG Oral Tablet dexamethasone 4 mg tabl et dexamethasone 4 mg tablet completed dexamethasone 4 MG Oral Tablet [facility] ([facility]) doxycycline hyclate 100 MG Oral Tablet doxycycline hyc late 100 mg tablet doxycycline hyclate 100 mg tablet comp leted doxycycline hyclate 100 MG Oral Tablet [place] ([facility]) Dexamethasone 4 MG Oral Tablet dexamethasone 4 mg tabl et dexamethasone 4 mg tablet completed dexamethasone 4 MG Oral Tablet [facility] ([facility]) Azithromycin 250 MG Oral Tablet azithrom ycin 250 mg tablet TAKE 1 TABLET BY MOUTH ONCE A DAY azithromycin 250 mg tablet TAKE 1 TABLET BY MOUTH ONCE A DAY completed azithromycin 2 50 MG Oral Tablet [place] ([facility]) Azithromycin 250 MG Oral Tablet azithrom ycin 250 mg tablet TAKE 1 TABLET BY MOUTH ONCE A DAY azithromycin 250 mg tablet TAKE 1 TABLET BY MOUTH ONCE A DAY completed azithromycin 2 50 MG Oral Tablet [facility] ([facility]) doxycycline hyclate 100 MG Oral Tablet doxycycline hyc late 100 mg tablet doxycycline hyclate 100 mg tablet comp leted doxycycline hyclate 100 MG Oral Tablet [place] ([facility]) Prednisone 20 MG Oral Tablet prednisone 20 mg tablet prednisone 20 mg tablet completed prednisone 20 MG Oral Tablet [facility]) Levofloxacin 500 MG Oral Tablet levoflox acin 500 mg tablet TAKE ONE TABLET BY MOUTH ONCE DAILY DIRECTED levofloxacin 500 mg tablet TAKE ONE TABL ET BY MOUTH ONCE DAILY DIRECTED completed levofloxacin 500 MG Oral Tablet [facility] ([facility]) Prednisone 20 MG Oral Tablet prednisone 20 mg tablet prednisone 20 mg tablet completed prednisone 20 MG Oral Tablet [place] ([facility]) Levofloxacin 500 MG Oral Tablet levoflox acin 500 mg tablet TAKE ONE TABLET BY MOUTH ONCE DAILY DIRECTED levofloxacin 500 mg tablet TAKE ONE TABL ET BY MOUTH ONCE DAILY DIRECTED completed levofloxacin 500 MG Oral Tablet [place] ([facility]) Insurance Providers Payer name Policy type / Coverage type Policy ID Covered green party ID Covered green party's relationship to wilson Policy Wilson Plan Information [place]AN [id number] GELAWA [id number] SP [id number] [place] MEDICAID [id number] Edyta 7 [id number] [place] MEDICAID [id number] S [id number] [place] [facility] MEDICAID [id number] S [id number] [facility] MEDICAID [id number] S [id number] [facility] MEDICAID [id number] S [id number] Managed Care [place] P [id number] S [id number] Medicaid S [id number] S [id number] Managed Care [place] P [id number] S [id number] Medicaid S [id number] S [id number] [place] [id number] SP [id number] MEDICAID [id number] SP [id number] ANSI-Commercial [id number] ANSI-Commercial [id number] ANSI-Medicaid [id number] ANSI-Medicaid [id number] ANSI-Medicaid [id number] ANSI-Commercial [id number] ANSI-Medicaid [id number] ANSI-Commercial [id number] ANSI-Medicaid [id number] ANSI-Commercial [id number] ANSI-Commercial [id number] ANSI-Medicaid [id number] ANSI-Commercial [id number] [facility] [id number] ANSI-Commercial [id number] ANSI-Commercial [id number] ANSI-Medicaid [id number] ANSI-Commercial [id number] ANSI-Commercial [id number] ANSI-Medicaid [id number] ANSI-Medicaid [id number] [place] Medicaid/P/P Commercial [id number] [facility] [id number] ANSI-Medicaid [id number] ANSI-Commercial [id number] ANSI-Medicaid [id number] ANSI-Commercial [id number] ANSI-Commercial [id number] ANSI-Commercial [id number] ANSI-Medicaid [id number] [facility]-Medicaid [id number] [facility]-Medicaid [id number] ANSI-Commercial [id number] ANS-Commercial [id number] [facility]-Medicaid [id number] ANS-[facility] [id number] ANSI-Medicaid [id number] [facility]-Medicaid [id number] ANSI-Commercial [id number] [facility]-Medicaid [id number] ANSI-Commercial [id number] ANSI-Commercial [id number] ANSI-Medicaid [id number] ANSI-Commercial [id number] ANSI-Commercial [id number]-[id number] ANSI-Medicaid [id number] ANSI-Medicaid [id number] ANSI-Medicaid [id number] ANSI-Commercial [id number] ANSI-Commercial [id number]-[id number] ANSI-Medicaid [id number] [employer] [id number] S [id number] [facility] MEDICAID [id number] S [id number] [employer] [id number] S [id number] [employer] [id number] S [id number] ANSI-Commercial [id number] ANSI-Medicaid [id number] ANSI-Medicaid [id number] ANSI-Commercial [id number] ANSI-Medicaid [id number] ANSI-Commercial [id number] ANSI-Commercial [id number] ANSI-Medicaid [id number] ANSI-Medicaid [id number] ANSI-Medicaid [id number] ANSI-Commercial [id number] ANSI-Commercial [id number] ANSI-Medicaid [id number] ANSI-Commercial [id number] ANSI-Medicaid [id number] ANSI-Commercial [id number] SELF PAY ONLY 0 SP 0 [facility] MEDICAID [id number] S [id number] [facility] MEDICAID [id number] S [id number] [facility] MEDICAID [facility] HMO UNAVAILABLE UNAVAILABLE [facility] MEDICAID [facility] HMO [id number] S [id number] SELF PAY SP [id number] S [id number] [facility] [id number] S [id number] SELF PAY ONLY UNAVAILABLE SP UNAV AILABLE OTHER1 [id number] SP [id number] [id number] S [id number] Problems, Conditions, and Diagnoses Code Display Name Description Problem Type Effective Dates Data Source(s) M50.30 Other cervical disc degeneration, unspec ified cervical region Other cervical disc degeneration, unspecified cervical region 12/01/2019 11:02:38 AM EDT [facility] [id number] Chronic neck pain for greater than 3 mon ths Chronic neck pain for greater than 3 months 12/01/2019 11:02:38 AM EDT [facility] Other specified menopausal and perimenop ausal disorders Other specified menopausal and perimenopausal disorders 12/01/2019 11:02:38 AM EDT [facility] hot flashes, mood swings [id number] Dyspnea, unspecified Dyspnea, unspecified 10/08/2019 02:38:50 PM EDT [facility] [id number] Swelling of bilateral lower limbs Swelling of bilatera l lower limbs 10/08/2019 02:38:50 PM EDT [facility] [id number] Dyspnea Dyspnea Problem 10/08/2019 12:00:00 AM ED T [place] ([facility]) [id number] Polyalgia Polyalgia Problem 10/08/2019 12:00:00 AM ED T [place] ([facility]) [id number] Dyspnea Dyspnea Problem 10/08/2019 12:00:00 AM ED T [place] ([facility]) [id number] Polyalgia Polyalgia Problem 10/08/2019 12:00:00 AM ED T [place] ([facility]) [id number] Unspecified bacterial pneumonia Unspecified bacterial pneumonia 10/01/2019 03:55:54 PM EDT [facility] [id number] Pneumonia caused by Gram positive bacter ia Pneumonia Caused by gram Positive Bacteria Problem 10/01/2019 12:00:00 AM EDT [place] ([facility]) [id number] Pneumonia caused by Gram positive bacter ia Pneumonia Caused by gram Positive Bacteria Problem 10/01/2019 12:00:00 AM EDT [place] ([facility]) [id number] Viral intestinal infection, unspecified Viral intestinal infection, unspecified 08/15/2019 10:12:47 AM EDT [facility] [id number] Migraine with aura, not intractable, wit hout status migrainosus Migraine with aura, not intractable, without status migrainosus 08/15/2019 10:12:47 AM EDT [facility] [id number] Migraine with aura Migraine with Aura Problem 02/2020 12:00:00 AM EDT [place] ([facility]) [id number] Migraine with aura Migraine with Aura Problem 02/2020 12:00:00 AM EDT [place] ([facility]) [id number] Irregular menstruation, unspecified Irre gular menstruation, unspecified 08/01/2019 10:21:54 AM EDT [facility] [id number] Cardiac murmur, unspecified Cardiac murmur, unspecifie d 08/01/2019 10:21:54 AM EDT [facility] V85.1 BMI 24.0-24.9 BMI 24.0-24.9 08/01/2019 10:21:54 AM EDT [facility] [id number] Finding of regularity of menstrual cycle Finding of Regularity of Menstrual Cycle Problem 08/01/2019 12:00:00 AM EDT [place] ([facility]) [id number] Body measurement finding Body Measurement Finding Prob celeste 08/01/2019 12:00:00 AM EDT [place] ([facility]) [id number] Heart murmur Heart Murmur Problem 08/01/2019 12:00:00 A M EDT [place] ([facility]) [id number] Finding of regularity of menstrual cycle Finding of Regularity of Menstrual Cycle Problem 08/01/2019 12:00:00 AM EDT [place] ([facility]) [id number] Body measurement finding Body Measurement Finding Prob celeste 08/01/2019 12:00:00 AM EDT [place] ([facility]) [id number] Heart murmur Heart Murmur Problem 08/01/2019 12:00:00 A M EDT [facility]) V15.89 Passive smoke exposure Passive smoke exposure 07/24/2019 10:21:35 AM EDT [facility] 305.1 Tobacco use Tobacco use 07/24/2019 10:21:35 AM EDT [facility] [id number] Exposure to second hand tobacco smoke Ex posure to Second Hand Tobacco Smoke Problem 07/24/2019 12:00:00 AM EDT [place] ([facility]) [id number] Tobacco use and exposure - finding Tobacco Use a nd Exposure - Finding Problem 07/24/2019 12:00:00 AM EDT [place] ([facility]) [id number] Exposure to second hand tobacco smoke Ex posure to Second Hand Tobacco Smoke Problem 07/24/2019 12:00:00 AM EDT [place] ([facility]) 294578348 Tobacco use and exposure - finding Tobacco Use a nd Exposure - Finding Problem 07/24/2019 12:00:00 AM EDT [place] ([facility]) 401.9 Essential hypertension Essential hypertension 07/14/2019 12:21:26 PM EDT [facility] [id number] Prediabetes Prediabetes 07/14/2019 12:21:26 PM EDT [facility] based on 07/2018 A1c 729.1 Fibromyalgia Fibromyalgia 07/14/2019 12:21:26 P M EDT [facility] V70.0 Encounter for general adult medical exam ination without abnormal findings Encounter for general adult medical examination without abnormal findings 07/14/2019 12:21:26 PM EDT [facility] [id number] Prediabetes Prediabetes Problem 07/14/2019 12:00:00 AM EDT [place] ([facility]) [id number] Fibromyalgia Fibromyalgia Problem 07/14/2019 12:00:00 A M EDT [place] ([facility]) [id number] Hypertensive disorder Hypertensive Disorder Problem 07/14/2019 12:00:00 AM EDT [place] ([facility]) [id number] Prediabetes Prediabetes Problem 07/14/2019 12:00:00 AM EDT [place] ([facility]) [id number] Fibromyalgia Fibromyalgia Problem 07/14/2019 12:00:00 A M EDT [place] ([facility]) [id number] Hypertensive disorder Hypertensive Disorder Problem 07/14/2019 12:00:00 AM EDT [place] ([facility]) R01.1 Cardiac murmur, unspecified Cardiac murmur, unspecifie d Diagnosis 03/15/2020 10:36:34 AM EST [facility] R06.02 Shortness of breath Shortness of breath Diagnosis 0 03/15/2020 10:36:34 AM [facility] 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 Diagnosis 01/16/2020 11:09:00 PM [facility] l Z79.51 roasterman (current) use of inhaled stero ids INTERMEDIATE (CURRENT) USE OF INHALED STEROIDS Diagnosis 01/16/2020 11:09:00 PM [facility] Z20.828 Contact with and (suspected) exposure to other viral communicable diseases CONTACT W AND EXPOSURE TO OTH VIRAL COMMUNICABLE D Diagnosis 01/16/2020 11:09:00 PM [facility] F17.210 Nicotine dependence, cigarettes, uncompl icated NICOTINE DEPENDENCE, CIGARETTES, UNCOMPLICATED Diagnosis 01/16/2020 11:09:00 PM [facility]ital I10 Essential (primary) hypertension ESSENTIAL (PRIMARY) H YPERTENSION Diagnosis 01/16/2020 11:09:00 PM [facility] R60.9 Edema, unspecified EDEMA, UNSPECIFIED Diagnosis 11:09:00 PM [facility] J45.30 Mild persistent asthma, uncomplicated RI LD PERSISTENT ASTHMA, UNCOMPLICATED Diagnosis 01/16/2020 11:09:00 PM [facility] R05 Cough COUGH Diagnosis 01/16/2020 11:09:00 PM [facility] Y93.89 Activity, other specified ACTIVITY, OTHER SPECIFIED Di agnosis 12/13/2019 10:45:00 AM [facility] Y92.[address] in unspeci fied non-institutional (private) residence as the place of occurrence of the external cause UNSP PLACE IN [facility] NON-INSTITUT (PRIVATE) RESIDENC Diagnosis 12/13/2019 10:45:00 AM [facility] W57.XXXA Bitten or stung by nonvenomo us insect and other nonvenomous arthropods, initial encounter BIT/STUNG BY NONVENOM INSECT OTH NONVENOM ARTHRO Diagnosis 12/13/2019 10:45:00 AM [facility] J45.909 Unspecified asthma, uncomplicated UNSPECIFIED THMA, UNCOMPLICATED Diagnosis 12/13/2019 10:45:00 AM [facility] M79.7 Fibromyalgia FIBROMYALGIA Diagnosis 12/13/2019 10:45:00 A [facility] S70.362A Insect bite (nonvenomous), left thigh, i nitial encounter INSECT BITE (NONVENOMOUS), LEFT THIGH, INITIAL ENC Diagnosis 12/13/2019 10:45:00 A M [facility] M54.2 Cervicalgia CERVICALGIA Diagnosis 12/13/2019 10:45:00 AM [facility] Z79.52 roasterman (current) use of systemic ster oids STOVE FITTER (CURRENT) USE OF SYSTEMIC STEROIDS Diagnosis 09/24/2019 01:22:00 PM [facility] l Z79.2 nursing home (current) use of antibiotics L SETH TERM (CURRENT) USE OF ANTIBIOTICS Diagnosis 09/24/2019 01:22:00 PM [facility] l F41.1 Generalized anxiety disorder GENERALIZED ANXIETY DISOR GRZEGORZ Diagnosis 09/24/2019 01:22:00 PM [facility] R06.00 Dyspnea, unspecified DYSPNEA, UNSPECIFIED Diagnosis 09/24/2019 01:22:00 PM [facility] J15.9 Unspecified bacterial pneumonia UNSPECIFIED BACTERIAL PNEUMONIA Diagnosis 09/22/2019 02:01:00 PM [facility] J45.21 Mild intermittent asthma with (acute) ex acerbation MILD INTERMITTENT ASTHMA WITH (ACUTE) EXACERBATION Diagnosis 09/22/2019 02:01:00 PM [facility] R01.1 Cardiac murmur, unspecified CARDIAC MURMUR, UNSPECIFIE D Diagnosis 09/22/2019 02:01:00 PM [facility] R00.0 Tachycardia, unspecified TACHYCARDIA, UNSPECIFIED Diag nosis 09/22/2019 02:01:00 PM [facility] J90 Pleural effusion, not elsewhere classifi ed PLEURAL EFFUSION, NOT ELSEWHERE CLASSIFIED Diagnosis 09/22/2019 02:01:00 PM [facility] l J18.9 Pneumonia, unspecified organism PNEUMONIA, UNSPECIFIED ORGANISM Diagnosis 09/22/2019 02:01:00 PM [facility] R07.2 Precordial pain PRECORDIAL PAIN Diagnosis 09/22/2019 02:0 1:00 PM [facility] R07.89 Other chest pain OTHER CHEST PAIN Diagnosis 09/22/2019 02 :01:00 PM [facility] Results ID Date Data Source [id number] 03/13/2020 10:44:00 AM EST [place] [address] [address] NAME: MARIA G LEWIS#: [id number] PHYSICIAN: RAJ NICHOLASOUNT #: [id number] ADM. DATE:PATIENT : 66 DISCH. DATE: [50}DISCHARGE SUMMARYSurgical/Ortho discharge planNicotine Replacement TherapyPrescribed at discharge Rx not offered at DCReason not offered n/aPersonal Care InstructionsDischarge Activity: Resume normal activity, Lifting, limited weight (<20lbs o5lmwqf)Discharge diet: Low Fat/Low CholesterolWound care: Change dr [...] rce(s) Supporting Document(s) ID Date Data Source [id number] 03/13/2020 10:40:00 AM EST [place] [address] [address]TDHYBNOHD REPORTPATIENT NAME: MARIA G LEWIS LM.R.#: [id number]: JOHNATHAN NICHOLAS. DATE: 03/12/20PATIENT : 66LOCATION: 2EASTACCOUNT #: [id number] ReportOperative ReportDATE OF PROCEDURE: 1PROCEDURE PERFORMED: Robotic- [...] rce(s) Supporting Document(s) ID Date Data Source [id number] 03/12/2020 07:39:00 PM EST [address] [address]OQDBLKWA HISTORY AND PHYSICALPATIENT NAME: MARIA G LEWIS MR#: [id number] PHYSICIAN: YAIR GERMAIN MDAUTHOR: Marcellus BUCHANAN,Yari DATE: 03/12/20 RM#: 2EASTHISTORY & PHYSICAL DATE: 03/12/20 PATIENT : 66EVALUATION TIME: 1947HisChief Complaint/Admit Reasonabd painHistory of Presenting [id number] with periumbilical and epigastric abdominal pain accompanied [...] diabetic.NeurologicalDenies: seizure, syncope.PsychReports: anxiety, depression.ExamVital SignsVital Signs-24 HRS01/734214Wpvi 98.8Pulse 81Resp 16B/P 156/101B/P MeanPulse Ox 96O2 DeliveryO2 Flow QudcHzX8Uerpszwx ExaminationGeneral Appearance no acute distress, alert, awakeNeck [...] dariana. COVID-ve.DATE SIGNED: 03/12/20 Electronically SignedTIME SIGNED: [id number] YAIR GERMAIN MD Name Value Range Interpretation Code Description Data Nimo rce(s) Supporting Document(s) ID Date Data Source [id number] 03/12/2020 06:45:00 PM EST [facility] Patient: MARIA G LEWIS Observation Rep ort - [facility].VisitID: [id number] [place] [address] [phone], FRegistration Date/Time: 03/12/2020 11:05 Weight:68.9 kg. Height/Length:64 inches. BMI:26.1 FAMILY HISTORYMother: Cancer. Father: Diabetes Mellitus, Heart Disease, Hypertension. (Electronically signed by Tiara Freitas P.A. 03/12/2020 18:24) Name Value Range Interpretation Code Description Data Nimo rce(s) Supporting Document(s) ID Date Data Source [id number] 03/12/2020 01:14:00 PM EST [facility] Name Value Range Interpretation Code Description Data Nmio rce(s) Supporting Document(s) COVID-19 NEGATIVE [facility] This lab was ordered by [facility] and reported by [facility]. ID Date Data Source [id number] 03/12/2020 01:40:00 PM EST [facility] Name Value Range Interpretation Code Description Data Nimo rce(s) Supporting Document(s) COVID-19 NEGATIVE NEGATIVE [facility] Negative results should be treated as pr [...] are for the indentification of SARS-CoV-2 RNA. KsdZZRM-UgP-0 RNA is generally detectable in respiratorysamples during the actue phase of infection. ID Date Data Source [id number] 03/12/2020 12:44:00 PM EST [facility] [...] rce(s) Supporting Document(s) ID Date Data Source [id number] 03/12/2020 12:37:00 PM EST [facility] TSYSORDER [id number] Name Value Range Interpretation Code Description Data Nimo rce(s) Supporting Document(s) URINE RBC 0-2 /hpf 0-3 [facility] URINE WBC 0-2 /hpf 0-5 H [facility] URINE EPITHELIAL CELLS 3+ /hpf 0 [facility] ID Date Data Source [id number] 03/12/2020 12:32:00 PM [facility] TSYSORDER [id number] Name Value Range Interpretation Code Description Data Nimo rce(s) Supporting Document(s) URINE COLOR. [facility] URINE APPEARANCE CLEAR [facility] l URINE GLUCOSE (UA) NEGATIVE mg/dL NEGATIVE [facility] URINE BILIRUBIN NEGATIVE NEGATIVE [facility] URINE KETONE NEGATIVE mg/dL NEGATIVE [facility] al SPECIFIC GRAVITY,URINE 1.010 1.001-1.035 [facility] URINE BLOOD TRACE NEGATIVE H [facility] PH,URINE 6.0 5.0-9.0 [facility] URINE PROTEIN NEGATIVE mg/dL NEGATIVE [facility] hunter URINE UROBILINOGEN NORMAL(0.2-1) mg/dL 0-1 R [facility] URINE NITRATE NEGATIVE NEGATIVE [facility] URINE LEUKOCYTE ESTERASE NEGATIVE NEGATIVE [facility] ID Date Data Source [id number] 03/12/2020 12:43:00 PM EST [facility] TSYSORDER [id number] Name Value Range Interpretation Code Description Data Nimo rce(s) Supporting Document(s) TROPONIN I < 0.017 ng/mL 0.0-0.056 [facility] ID Date Data Source [id number] 03/12/2020 12:20:00 PM EST [facility] TSYSORDER [id number] Name Value Range Interpretation Code Description Data Nimo rce(s) Supporting Document(s) LACTIC ACID 1.1 mmol/L 0.4-2.0 [facility] ID Date Data Source [id number] 03/12/2020 12:14:00 [facility] [id number] Name Value Range Interpretation Code Description Data Nimo rce(s) Supporting Document(s) LIPASE 106 U/L 73-393 [facility] ID Date Data Source [id number] 03/12/2020 12:14:00 PM [facility] l TSYSORDER [id number] Name Value Range Interpretation Code Description Data Nimo rce(s) Supporting Document(s) GLUCOSE 107 mg/dL 74-106 H [facility] BLOOD UREA NITROGEN 14 mg/dL 7-18 [facility] ital CREATININE 0.80 mg/dL 0.6-1.0 [facility] SODIUM 141 mmol/L 136-145 [facility] POTASSIUM 3.8 mmol/L 3.5-5.1 [facility] CHLORIDE 101 mmol/L 98-107 [facility] CO2 28 mmol/L 21-32 [facility] CALCIUM 8.9 mg/dL 8.5-10.1 [facility] ANION GAP 12.0 mmol/L 5-12 [facility] GLOMERULAR FILTRATION RATE 76 mL/min [facility] GFR IS CALCULATED IN mL/min/1.73m2 YANET L FUNCTION: >90MILDLY DECREASED: 60-89MILDY TO MODERATELY DECREASED: 45-59 MODERATELY TO SEVERELY DECREASED: 30-44SEVERELY DECREASED: 15-29RENAL FAILURE: <15 AST 33 U/L 15-37 [facility] ALT 37 U/L 12-78 [facility] ALKALINE PHOSPHATASE 123 U/L 46-116 H [facility] pital TOTAL BILIRUBIN 0.5 mg/dL 0.2-1.0 [facility] TOTAL PROTEIN 7.1 g/dl 6.4-8.2 [facility] ALBUMIN 3.9 gm/dL 3.4-5.0 [facility] ID Date Data Source [id number] 03/12/2020 11:53:00 AM [facility] l TSYSORDER [id number] Name Value Range Interpretation Code Description Data Nimo rce(s) Supporting Document(s) WHITE BLOOD COUNT 10.4 K/mm3 4.0-10.0 [facility] RED BLOOD COUNT 4.44 M/mm3 4.00-5.50 [facility] HEMOGLOBIN 12.5 gm/dL 12.0-16.0 [facility] HEMATOCRIT 38.9 % 36.0-48.8 [facility] MEAN CELL VOLUME 87.6 fl 80-96 [facility] MEAN CORPUSCULAR HEMOGLOBIN 28.2 pg 27.0-31.0 [facility] MEAN CORPUSCULAR HGB CONC 32.1 g/dl 32.0-36.0 [facility] RED CELL DISTRIBUTION WIDTH 14.9 % 10.0-14.5 H [facility] PLATELET COUNT 236 K/mm3 172-450 [facility] MEAN PLATELET VOLUME 10.7 fl 9.0-13.0 [facility] pital GRAN % 57.1 % 50-80.0 [facility] IG% 0.2 % 0.0-0.2 [facility] LYMPH % 32.1 % 25.0-50.0 [facility] MONO % 8.3 % 2.0-10.0 [facility] EOS % 2.0 % 0-5.0 [facility] BASO % 0.3 % 0.0-2.0 [facility] GRAN # 6.0 K/mm3 2.0-8.00 [facility] IG# 0.0 K/mm3 0.0-0.2 [facility] LYMPH # 3.3 K/mm3 1.0-5.0 [facility] MONO # 0.9 K/mm3 0.10-1.20 [facility] EOS # 0.2 K/mm3 0.0-0.5 [facility] BASO # 0.0 K/mm3 0.0-0.2 [facility] ID Date Data Source [id number] 01/17/2020 01:12:00 AM EST [facility] l Patient: MARIA G LEWIS Observation Rep ort - [facility].VisitID: [id number] [place] [address] [phone], FRegistration Date/Time: 01/16/2020 22:04 Weight:87 kg (S). [...] rce(s) Supporting Document(s) ID Date Data Source [id number] 01/16/2020 10:09:00 PM [facility] l Name Value Range Interpretation Code Description Data Nimo rce(s) Supporting Document(s) COVID-19 [facility] This lab was ordered by [facility] and reported by [facility]. ID Date Data Source [id number] 01/16/2020 10:31:00 PM [facility] hunter TSYSORDER [id number] Name Value Range Interpretation Code Description Data Nimo rce(s) Supporting Document(s) COVID-19 NEGATIVE NEGATIVE [facility] Negative results should be treated as pr [...] are for the indentification of SARS-CoV-2 RNA. GahOCDJ-EtL-8 RNA is generally detectable in respiratorysamples during the actue phase of infection. ID Date Data Source [id number] 12/13/2019 11:31:00 AM EDT [facility] Patient: MARIA G LEWIS Observation Rep ort - [facility] CenterVisitID: [id number] [place] [address] [phone], FRegistration Date/Time: 12/13/2019 10:27 Weight:65.7 kg. Height/Length:64 [...] rce(s) Supporting Document(s) ID Date Data Source [id number] 12/01/2019 10:21:00 AM EDT [facility] Measurements & CalculationsHeight: 64 inches [...] imaging was about 2 years ago at [facility], last report was degenerative changes. States the [...] during this visit, including review of any amvj-qzh-xlnmyrz medications, herbal therapies, and/or supplements.Allergy ReviewAllergy List [...] Problems:Added: Other specified menopausal and perimenopausal disorders (BKP44-G71.8): hot flashes, mood swings Assessment: Instructions: Check estrogen levels, if labs are stable then will call to start low dose estrogen replacement therapy. Reviewed risk for blood clot with nicotine use and estrogen. Reviewed signs/symptoms of blood clot requiring ER evaluation.Chronic neck pain for greater than 3 months (RCQ46-Z30.2) Assessm ent: Instructions: Tizanidine as prescribed, use at bedtime due to risk for grogginess. MRI ordered and will work with insurance to approval, then call you to schedule.Consider PT, call here if you feel you can accomodate that.Other cervical disc degeneration, unspecified cervical region (RGS40-Z99.30) Assessment: Instructions: As above.Assessed:Irregular menstruation, unspecified (AAE21-X35.6) Assessment: Instructions: As above.Prediabetes (SPJ88-G75.03): based on 07/2018 A1c Assessment: Instructions: A1c is now within normal range. Continue trying to avoid high carb intake and keep weight stable. Monitor A1c every 6-12 months.Tobacco use (ICD-305.1) (IWN06-P43.0) Assessment: Instructions: Doing well with Nicotrol, continue trying to cut back with goal of complete cessation.Essential hypertension (ICD-401.9) (ICD10- I10) Assessment: Instructions: BP at goal today. Continue current Lasix, awaiting cardiology referral.ADHD (ICD-314.01) (KUF45-J59.9) Assessment: Instructions: Stable with current Methylphenidate.Nicotine dependence, cigarettes, uncomplicated (YAN72-C63.210) Assessment: Instructions: As above.Removed:Unspecified bacterial pneumonia (VIJ79-J38.9)Patient Instructions/Care Plan: Other specified menopausal and perimenopausal [...] (Moderate)Information o n new prescriptions provided to patient.Orders:[id number] - Venipuncture [CPT-72142] GONADOTROPIN FOLLICLE STIMULATING HORMONE [CPT-97950] GONADOTROPIN LUTEINIZING HORMONE [CPT-90402] TESTOSTERONE TOTAL [CPT-30974] PROGESTERONE [CPT-60308] ESTROGENS TOTAL [CPT-61169] Adult - Ofc Vst, EST, Level IV [CPT-97690] MRI SPINAL CANAL CERVICAL W/O CONTRAST MATRL [CPT-75322] Follow-Up Return to clinic: in 90 days for follow upAdditional Follow-Up: ADHD/HTN after nonfasting labClinical Visit Summary CompletedMedications:METHYLPHENIDATE HCL 20 MG ORAL TABLET (METHYLPHENIDATE HCL) Take 1 tablet po bid; MDD 2 tablets #60[Tablet] x 0 Entered and Authorized by: Rubio GERARDO Method used: Electronically to [facility] (retail) [address] [place] [address] Fax: Indications: ADHD RxID: [id number] HCL 4 MG ORAL TABLET (TIZANIDINE HCL) Take 1 tablet po TID prn pain/spasm #90[Tablet] x 1 Route:ORAL Entered and Authorized by: Rubio GERARDO Method used: Electronically to [facility] ([place]) [address] [place] [address] Fax: Note to Pharmacy: Route: ORAL; Indications: OTHER CERVICAL DISC DEGENERATION, UNSPECIFIED CERVICAL REGION;CHRONIC NECK PAIN FOR GREATER THAN 3 MONTHS RxID: [id number] In-House Blood TestsDate/Time Collected: December 01, 2019 11:10 AMDate/Time Received: December 01, 2019 11:10 AMTest Result Reference Range Normal ValueComments: Labs drawn in office taken from the right AC without difficulty. Patient tolerated it well.Isidra Rey MA, December 01, 2019 11:55 AM Name Value Range Interpretation Code Description Data Nimo rce(s) Supporting Document(s) ID Date Data Source [id number] 10/08/2019 11:32:13 AM EDT [facility] Measurements & CalculationsHeight: 64 inches [...] during this visit, including review of any cvpu-xzb-cpysoth medications, herbal therapies, and/or supplements.Allergy ReviewAllergy List [...] is? FairAssessment & Plan Problems:Assessed:Unspecified bacterial pneumonia (TJM65-Z58.9) Assessment: Instructions: Finish antibx today. No further indicated at this time.Cardiac murmur, unspecified (ICD10- R01.1) Assessment: Instructions: Pending cardiac consult. Resume prior Lasix. Repeat blood work in 1-2 weeks, lab slip provided today to take to [facility].Essential hypertension (ICD-401.9) (KNN74-K95) Assessment: Instructions: BP borderline high but acceptable today. Resume Lasix.Prediabetes (ROH17-P77.03): based on 07/2018 A1c Assessment: Instructions: Lab slip provided.Swelling of bilateral lower limbs (LEQ47-T61.89) Assessment: Instructions: As above.Patient Instructions/Care Plan: Unspecified [...] s:Adult - Ofc Vst, EST, Level III [CPT-69175] Follow-Up Return to clinic: as needed, as scheduled for follow upClinical Visit Summary Completed Name Value Range Interpretation Code Description Data Nimo rce(s) Supporting Document(s) ID Date Data Source [id number] 10/01/2019 03:14:31 PM EDT [facility] Measurements & CalculationsHeight: 64 inches [...] Illness (HPI)48 yo female pt presents for [facility] ER f/u of pneumonia. Pt was seen [...] during this visit, including review of any szdp-act-pyurwlf medications, herbal therapies, and/or supplements.Allergy ReviewAllergy List [...] FairAssessment & Plan Problems:Added: Unspecified bacterial pneumonia (MJT55-E32.9) Assessment: Instructions: Finish antibiotics per ER. Follow-up for worsening symptoms.Assessed:Tobacco use (ICD-305.1) (RWE04-H65.0) Assessment: Instructions: Smoking cessation counseling was recommended with patient today. Nicotrol inhalers prescribed.GENERALIZED ANXIETY DISORDER (ICD-300.02) (GDI39-Q60.1) Assessment: Instructions: Continue current Cymbalta and hydroxyzine at bedtime.Cardiac murmur, unspecified (OJD67-P37.1) Assessment: Instructions: Reschedule with cardiology, provided you with their office contact information today.Essential hypertension (ICD-401.9) (LPO35-A38) Assessment: Instructions: BP elevated today, but previously well controlled.Recommend reduced salt intake, cut back on caffeine and alcohol, increase physical activity. 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 Goal BP is <140/90, please call the office if your blood pressures are consistently running higher than that cutoff. Call 911 or report to the closest ER for chest pain, shortness of breath, dizziness, or passing out.Removed:Viral intestinal infection, unspecified (JXG53-K24.4)Patient Instructions/Care Plan: Unspecified bacterial pneumonia: Finish antibiotics [...] alcohol, increase physical activity. We reviewed the termite control technician risks associated with uncontrolled high blood pressure, [...] patient.Orders:Adult - Ofc Vst, EST, Level III [CPT-85181] Follow-Up Return to clinic: as needed Clinical Visit Summary Completed Name Value Range Interpretation Code Description Data Nimo rce(s) Supporting Document(s) ID Date Data Source [id number] 09/24/2019 03:20:00 PM EDT [facility] [...] rce(s) Supporting Document(s) ID Date Data Source [id number] 09/24/2019 03:04:00 PM EDT [facility] Patient: MARIA G LEWIS Observation Rep ort - [facility].VisitID: [id number] [place] [address] [phone], [facility] Date/Time: 09/24/2019 12:13 Weight:62.5 kg (S). Height/Length:64 [...] Name Value Range Interpretation Code Description Data [facility] rce(s) Supporting Document(s) ID Date Data Source [id number] 09/25/2019 12:05:00 PM EDT [facility] Name Value Range Interpretation Code Description Data [facility] rce(s) Supporting Document(s) LDH 209 IU/L 119-226 [facility] Performed at: RN - [facility] [place] [id number] Director: Janny Cleaning MD, Phone: [phone] ID Date Data Source [id number] 09/25/2019 12:05:00 PM EDT [facility] Name Value Range Interpretation Code Description Data [facility] rce(s) Supporting Document(s) LDH 209 IU/L 119-226 [facility] ID Date Data Source [id number] 09/24/2019 01:47:00 PM EDT [facility] Name Value Range Interpretation Code Description Data [facility] rce(s) Supporting Document(s) Adenovirus Not Detected Detected [facility] Coronavirus 229E Not Detected Detected [facility] Coronavirus HKU1 Not Detected Detected [facility] Coronavirus NL63 [facility] Detected [facility]ed [facility] Coron[facility] OC43 Not Detected Detected Not [facility] Sars Cov 2 Not Detected Detected [facility] Human Metapneumovirus Not Detected Detected Not [facility] Human Rhinovirus Not Detected Detected Not [facility] Influenza A Not Detected Detected Not [facility] Influenza B Not Detected Detected Not [facility] Parainfluenza Virus 1 Not Detected Detected Not [facility] Parainfluenza Virus 2 Not Detected Detected Not [facility] Parainfluenza Virus 3 Not Detected Detected Not [facility] Parainfluenza Virus 4 Not Detected Detected Not [facility] Respiratory Syncytial Virus Not Detected Detected Not [facility] Bordetella parapertus ([id number]) Not Detected Detected Not [facility] Bordetella pertussis (ptxP) Not Detected Detected Not [facility] Chlamydia pneumoniae Not Detected Detected Not [facility] Mycoplasma pneumoniae Not Detected Detected Not [facility] The Above results have been determined b y using the [employer] FilmArray system.FilmArray is an automated in vitro diagnostic system thatutilizes nested multiplex Polymerase Chain Reaction (PCR)and high-resolution melting analysis to detect and identifymultiple nucleic acid targets from clinical specimens. ID Date Data Source [id number] 09/24/2019 01:28:00 PM EDT [facility] TSYSORDER [id number] Name Value Range Interpretation Code Description Data Nimo rce(s) Supporting Document(s) FERRITIN 62 ng/mL 8-252 [facility] ID Date Data Source [id number] 09/24/2019 01:23:00 PM EDT [facility] TSYSORDER [id number] Name Value Range Interpretation Code Description Data Nimo rce(s) Supporting Document(s) B-TYPE NATRIURETIC PEPTIDE 975 pg/ml 0-125 *H [facility] ID Date Data Source [id number] 09/24/2019 01:23:00 PM EDT [facility] [id number] Name Value Range Interpretation Code Description Data Nimo rce(s) Supporting Document(s) MAGNESIUM 1.8 mg/dL 1.8-2.4 [facility] ID Date Data Source [id number] 09/24/2019 01:23:00 PM EDT [facility] TSYS[facility] [id number] Name Value Range Interpretation Code Description Data Nimo rce(s) Supporting Document(s) TROPONIN I < 0.017 ng/mL 0.0-0.056 [facility] ID Date Data Source [id number] 09/24/2019 01:23:00 PM EDT [facility] TSYSORDER [id number] Name Value Range Interpretation Code Description Data Nimo rce(s) Supporting Document(s) GLUCOSE 154 mg/dL 74-106 H [facility] BLOOD UREA NITROGEN 14 mg/dL 7-18 [facility] ital CREATININE 0.9 mg/dL 0.6-1.0 [facility] SODIUM 139 mmol/L 136-145 [facility] POTASSIUM 3.5 mmol/L 3.5-5.1 [facility] CHLORIDE 103 mmol/L 98-107 [facility] CO2 24 mmol/L 21-32 [facility] CALCIUM 8.9 mg/dL 8.5-10.1 [facility] ANION GAP 12.0 mmol/L 5-12 [facility] GLOMERULAR FILTRATION RATE 66 mL/min [facility] GFR IS CALCULATED IN mL/min/1.73m2 YANET L FUNCTION: >90MILDLY DECREASED: 60-89MILDY TO MODERATELY DECREASED: 45-59 MODERATELY TO SEVERELY DECREASED: 30-44SEVERELY DECREASED: 15-29RENAL FAILURE: <15 AST 18 U/L 15-37 [facility] ALT 22 U/L 12-78 [facility] ALKALINE PHOSPHATASE 64 U/L 46-116 [facility] pital TOTAL BILIRUBIN 0.3 mg/dL 0.2-1.0 [facility] TOTAL PROTEIN 7.1 g/dl 6.4-8.2 [facility] ALBUMIN 4.0 gm/dL 3.4-5.0 [facility] ID Date Data Source [id number] 09/24/2019 01:20:00 PM EDT [facility] [id number] Name Value Range Interpretation Code Description Data Nimo rce(s) Supporting Document(s) DDIMER 0.45 mg/LFEU 0.19-0.60 [facility] ID Date Data Source [id number] 09/24/2019 01:20:00 PM EDT [facility] [id number] Name Value Range Interpretation Code Description Data Nimo rce(s) Supporting Document(s) PARTIAL THROMBOPLASTIN TIME 21.6 SECONDS 21.4-30.2 [facility] ID Date Data Source [id number] 09/24/2019 01:20:00 PM EDT [facility] l TSYSORDER [id number] Name Value Range Interpretation Code Description Data Nimo rce(s) Supporting Document(s) PROTHROMBIN TIME (PATIENT) 10.0 SECONDS 9.2-11.6 [facility] INR 0.96 0.87-1.06 [facility] ID Date Data Source [id number] 09/24/2019 01:18:00 PM EDT [facility] l TSYSORDER [id number] Name Value Range Interpretation Code Description Data Nimo rce(s) Supporting Document(s) LACTIC ACID 1.7 mmol/L 0.4-2.0 [facility] ID Date Data Source [id number] 09/24/2019 01:00:00 PM EDT [facility] l TSYSORDER [id number] Name Value Range Interpretation Code Description Data Nimo rce(s) Supporting Document(s) PH 7.36 7.31-7.41 [facility] VENOUS PCO2 40.2 mmHg 41-51 L [facility] VENOUS PO2 91 mmHg 35-42 H [facility] VENOUS BLODD O2 SATURATION 94.2 % 68-77 H [facility] VENOUS BLOOD HCO3 22.1 meq/L 24.0-25.0 L [facility] VENOUS BASE EXCESS -2.6 -3.0-3.0 [facility] VENOUS BLOOD CO2 23.3 mmol/L 23.0-32.0 [facility] ID Date Data Source [id number] 09/24/2019 12:54:00 PM EDT [facility] l TSYSORDER [id number] Name Value Range Interpretation Code Description Data Nimo rce(s) Supporting Document(s) WHITE BLOOD COUNT 14.5 K/mm3 4.0-10.0 H [facility] RED BLOOD COUNT 4.22 M/mm3 4.00-5.50 [facility] HEMOGLOBIN 13.1 gm/dL 12.0-16.0 [facility] HEMATOCRIT 39.0 % 36.0-48.8 [facility] MEAN CELL VOLUME 92.4 fl 80-96 [facility] MEAN CORPUSCULAR HEMOGLOBIN 31.0 pg 27.0-31.0 [facility] MEAN CORPUSCULAR HGB CONC 33.6 g/dl 32.0-36.0 [facility] RED CELL DISTRIBUTION WIDTH 13.4 % 10.0-14.5 [facility] PLATELET COUNT 172 K/mm3 172-450 [facility] MEAN PLATELET VOLUME 11.7 fl 9.0-13.0 [facility] pital GRAN % 88.2 % 50-80.0 H [facility] IG% 0.1 % 0.0-0.2 [facility] LYMPH % 7.9 % 25.0-50.0 L [facility] MONO % 3.5 % 2.0-10.0 [facility] EOS % 0.1 % 0-5.0 [facility] BASO % 0.2 % 0.0-2.0 [facility] GRAN # 12.8 K/mm3 2.0-8.00 H [facility] IG# 0.0 K/mm3 0.0-0.2 [facility] LYMPH # 1.1 K/mm3 1.0-5.0 [facility] MONO # 0.5 K/mm3 0.10-1.20 [facility] EOS # 0.0 K/mm3 0.0-0.5 [facility] BASO # 0.0 K/mm3 0.0-0.2 [facility] ID Date Data Source [id number] 09/24/2019 11:24:00 AM EDT [facility] Patient: MARIA G LEWIS Observation Rep ort [facility].VisitID: [id number] [place] [address] [phone], [facility] Date/Time: 09/22/2019 13:26 Weight:62.5 kg (S). Height/Length:64 [...] 01:37) Addenda for MARIA G LEWIS VisitID: [id number] Date: 09/22/2019 09/24/2019 10:04LWBS/LWBT/AMA??? follow-up Left message [...] rce(s) Supporting Document(s) ID Date Data Source [id number] 09/24/2019 10:16:00 AM EDT [facility] Patient: MARIA G LEWIS Observation Rep [facility].VisitID: [id number] [place] [address] [phone], [facility] Date/Time: 09/22/2019 13:26 Weight:62.5 kg (S). Height/Length:64 [...] 01:37) Addenda for MARIA G LEWIS VisitID: [id number] Date: 09/22/2019 09/24/2019 10:04LWBS/LWBT/AMA??? follow-up Left message for pt to please return call to the ED.(Electronically signed by Kary Gayle 09/24/2019 10:04) Name Value Range Interpretation Code Description Data Nimo rce(s) Supporting Document(s) ID Date Data Source [id number] 09/24/2019 12:00:00 AM EDT [facility] Name Value Range Interpretation Code Description Data Nimo rce(s) Supporting Document(s) 2019 Novel Coronavirus RNA [facility] This lab was ordered by [facility] aboratory and reported by [facility] Laboratory. ID Date Data Source [id number] 09/23/2019 01:40:00 AM EDT [facility] Patient: MARIA G LEWIS Observation Rep [facility].VisitID: [id number] [place] [address] [phone], FRegistration Date/Time: 09/22/2019 13:26 Weight:62.5 kg (S). [...] e(s) Supporting Document(s) ID Date Data Source [id number] 09/22/2019 06:22:00 PM EDT [facility] DATE OF EXAMINATION: 09/22/2019 15:58 EDT [...] rce(s) Supporting Document(s) ID Date Data Source [id number] 09/22/2019 09:42:00 PM EDT [facility] [id number] Name Value Range Interpretation Code Description Data Nimo rce(s) Supporting Document(s) B-TYPE NATRIURETIC PEPTIDE 628 pg/ml 0-125 *H [facility] ID Date Data Source [id number] 09/22/2019 06:18:00 PM EDT [facility] TSYSORDER [id number] Name Value Range Interpretation Code Description Data Nimo rce(s) Supporting Document(s) TROPONIN I < 0.017 ng/mL 0.0-0.056 [facility] ID Date Data Source [id number] 09/22/2019 05:17:00 PM EDT [facility] TSYSORDER [id number] Name Value Range Interpretation Code Description Data Nimo rce(s) Supporting Document(s) Adenovirus Not Detected Detected Not [facility] Coronavirus 229E Not Detected Detected Not [facility] Coronavirus HKU1 Not Detected Detected Not [facility] Coronavirus NL63 Not Detected Detected Not [facility] Coronavirus OC43 Not Detected Detected Not [facility] Sars Cov 2 Not Detected Detected Not [facility] Metapneumovirus Not Detected Detected Not [facility] Human Rhinovirus Not Detected Detected Not [facility] Influenza A Not Detected Detected [facility] Influenza B Not Detected Detected [facility] Parainfluenza Virus 1 Not Detected Detected [facility] Parainfluenza Virus 2 Not Detected Detected [facility] Parainfluenza Virus 3 Not Detected Detected Not [facility] Parainfluenza Virus 4 Not Detected Detected [facility] Respiratory Syncytial Virus Not Detected Detected Not [facility] Bordetella parapertus ([id number]) Not Detected Detected Not [facility] Bordetella pertussis (ptxP) Not Detected Detected Not [facility] Chlamydia pneumoniae Not Detected Detected Not [facility] Mycoplasma pneumoniae Not Detected Detected Not [facility] The Above results have been determined b y using the [facility] FilmArray system.FilmArray is an automated in vitro diagnostic system thatutilizes nested multiplex Polymerase Chain Reaction (PCR)and high-resolution melting analysis to detect and identifymultiple nucleic acid targets from clinical specimens. ID Date Data Source [id number] 09/22/2019 04:03:00 PM EDT [facility] [...] bon(s) Supporting Document(s) ID Date Data Source [id number] 09/22/2019 04:02:00 PM EDT [facility] DATE OF EXAMINATION: 09/22/2019 15:11 EDT [...] rce(s) Supporting Document(s) ID Date Data Source [id number] 09/22/2019 03:33:00 PM EDT [facility] TSYSORDER [id number] Name Value Range Interpretation Code Description Data Nimo rce(s) Supporting Document(s) DDIMER 0.71 mg/LFEU 0.19-0.60 [facility] ID Date Data Source [id number] 09/22/2019 02:29:00 PM EDT [facility] [id number] Name Value Range Interpretation Code Description Data Nimo rce(s) Supporting Document(s) TSH 0.83 uIU/mL 0.36-3.74 [facility] ID Date Data Source [id number] 09/22/2019 02:29:00 PM EDT [facility] l TSYSORDER [id number] Name Value Range Interpretation Code Description Data Nimo rce(s) Supporting Document(s) FREE T4 0.95 ng/dL 0.76-1.46 [facility] ID Date Data Source [id number] 09/22/2019 02:22:00 PM EDT [facility] l TSYSORDER [id number] Name Value Range Interpretation Code Description Data Nimo rce(s) Supporting Document(s) PARTIAL THROMBOPLASTIN TIME 23.0 SECONDS 21.4-30.2 [facility] ID Date Data Source [id number] 09/22/2019 02:22:00 PM EDT [facility] l TSYSORDER [id number] Name Value Range Interpretation Code Description Data Nimo rce(s) Supporting Document(s) PROTHROMBIN TIME (PATIENT) 9.9 SECONDS 9.2-11.6 [facility] INR 0.95 0.87-1.06 [facility] ID Date Data Source [id number] 09/22/2019 02:21:00 PM EDT [facility] l TSYSORDER [id number] Name Value Range Interpretation Code Description Data Nimo rce(s) Supporting Document(s) MAGNESIUM 1.8 mg/dL 1.8-2.4 [facility] ID Date Data Source [id number] 09/22/2019 02:21:00 PM EDT [facility] l TSYSORDER [id number] Name Value Range Interpretation Code Description Data Nimo rce(s) Supporting Document(s) TROPONIN I < 0.017 ng/mL 0.0-0.056 [facility] ID Date Data Source [id number] 09/22/2019 02:21:00 PM EDT [facility] TSYSORDER [id number] Name Value Range Interpretation Code Description Data Nimo rce(s) Supporting Document(s) LIPASE 97 U/L 73-393 [facility] ID Date Data Source [id number] 09/22/2019 02:21:00 PM EDT [facility] TSYSORDER [id number] Name Value Range Interpretation Code Description Data Nimo rce(s) Supporting Document(s) GLUCOSE 106 mg/dL 74-106 [facility] BLOOD UREA NITROGEN 10 mg/dL 7-18 [facility] ital CREATININE 0.7 mg/dL 0.6-1.0 [facility] SODIUM 139 mmol/L 136-145 [facility] POTASSIUM 4.2 mmol/L 3.5-5.1 [facility] CHLORIDE 104 mmol/L 98-107 [facility] CO2 26 mmol/L 21-32 [facility] CALCIUM 8.4 mg/dL 8.5-10.1 L [facility] ANION GAP 9.0 mmol/L 5-12 [facility] GLOMERULAR FILTRATION RATE 89 mL/min [facility] GFR IS CALCULATED IN mL/min/1.73m2 YANET L FUNCTION: >90MILDLY DECREASED: 60-89MILDY TO MODERATELY DECREASED: 45-59 MODERATELY TO SEVERELY DECREASED: 30-44SEVERELY DECREASED: 15-29RENAL FAILURE: <15 AST 17 U/L 15-37 [facility] ALT 17 U/L 12-78 [facility] ALKALINE PHOSPHATASE 67 U/L 46-116 [facility] pital TOTAL BILIRUBIN 0.1 mg/dL 0.2-1.0 L [facility] TOTAL PROTEIN 6.4 g/dl 6.4-8.2 [facility] ALBUMIN 3.6 gm/dL 3.4-5.0 [facility] ID Date Data Source [id number] 09/22/2019 02:06:00 PM EDT [facility] [id number] Name Value Range Interpretation Code Description Data Nimo rce(s) Supporting Document(s) WHITE BLOOD COUNT 8.4 K/mm3 4.0-10.0 [facility] al RED BLOOD COUNT 4.19 M/mm3 4.00-5.50 [facility] HEMOGLOBIN 13.0 gm/dL 12.0-16.0 [facility] HEMATOCRIT 38.4 % 36.0-48.8 [facility] MEAN CELL VOLUME 91.6 fl 80-96 [facility] MEAN CORPUSCULAR HEMOGLOBIN 31.0 pg 27.0-31.0 [facility] MEAN CORPUSCULAR HGB CONC 33.9 g/dl 32.0-36.0 [facility] RED CELL DISTRIBUTION WIDTH 13.0 % 10.0-14.5 [facility] PLATELET COUNT 169 K/mm3 172-450 L [facility] MEAN PLATELET VOLUME 11.7 fl 9.0-13.0 [facility] pital GRAN % 62.5 % 50-80.0 [facility] IG% 0.0 % 0.0-0.2 [facility] LYMPH % 29.1 % 25.0-50.0 [facility] MONO % 5.9 % 2.0-10.0 [facility] EOS % 2.1 % 0-5.0 [facility] BASO % 0.4 % 0.0-2.0 [facility] GRAN # 5.3 K/mm3 2.0-8.00 [facility] IG# 0.0 K/mm3 0.0-0.2 [facility] LYMPH # 2.5 K/mm3 1.0-5.0 [facility] MONO # 0.5 K/mm3 0.10-1.20 [facility] EOS # 0.2 K/mm3 0.0-0.5 [facility] BASO # 0.0 K/mm3 0.0-0.2 [facility] ID Date Data Source [id number] 09/22/2019 12:00:00 AM EDT [facility] Name Value Range Interpretation Code Description Data Nimo rce(s) Supporting Document(s) 2019 Novel Coronavirus RNA [facility] This lab was ordered by [facility] L aboratory and reported by [facility] Laboratory. ID Date Data Source [id number] 08/15/2019 09:40:40 AM EDT [facility] Measurements & CalculationsHeight: 64 inches [...] during this visit, including review of any vvja-ksh-zyxrhgl medications, herbal therapies, and/or supplements.Allergy ReviewAllergy List [...] & Plan Problems:Added: Viral intestinal infection, unspecified (LOC94-P24.4) Assessment: Instructions: Supportive measures: rest, increase fluids, [...] Orders:Adult - Ofc Vst, EST, Level III [CPT-19189] Follow-Up Return to clinic: as needed Clinical Visit Summary Declined Multiple Vital SignsVitals #2BP: 146/101 Performed by: Helen Nunez LPN, August 15, 2019 10:18 AMComments: left arm Name Value Range Interpretation Code Description Data Nimo rce(s) Supporting Document(s) ID Date Data Source [id number] 08/12/2019 05:30:00 AM EDT [facility] Name Value Range Interpretation Code Description Data Nimo rce(s) Supporting Document(s) SARS CORONAVIRUS 2 RNA [facility] This lab was ordered by [facility] and reported by [facility]. ID Date Data Source [id number] 08/08/2019 03:35:00 PM EDT [facility] Name Value Range Interpretation Code Description Data Nimo rce(s) Supporting Document(s) SARS CORONAVIRUS 2 RNA [facility] This lab was ordered by [facility] and reported by [facility]. ID Date Data Source [id number] 08/05/2019 03:32:00 PM EDT [facility] Name Value Range Interpretation Code Description Data Nimo rce(s) Supporting Document(s) SARS CORONAVIRUS 2 RNA [facility] This lab was ordered by [facility] and reported by [facility]. ID Date Data Source [id number] 08/01/2019 12:12:00 PM EDT [facility] Name Value Range Interpretation Code Description Data Nimo rce(s) Supporting Document(s) SARS CORONAVIRUS 2 RNA [facility] This lab was ordered by [facility] and reported by [facility]. ID Date Data Source [id number] 08/01/2019 09:52:39 AM EDT [facility] Measurements & CalculationsHeight: 64 inches [...] stop for 2 weeks.Pt needs note for [facility] regarding the BP. States at her new work physical at [employer] her BP was elevated, but [...] during this visit, including review of any tpxg-vfv-ktdpobw medications, herbal therapies, and/or supplements.Allergy ReviewAllergy List [...] intactAssessment & Plan Problems:Added: BMI 24.0-24.9 (ICD-V85.1) (CEF84-K28.24)Cardiac murmur, unspecified (WAS81-B11.1) Assessment: Instructions: Referral to cardiology for further evaluation. BP control is important at this time.Irregular menstruation, unspecified (QBN42-T55.6) Assessment: Instructions: Please let me know if this continues or worsens, then will consider an ultrasound. Otherwise, likely irregular due to perimenopausal state. Call to reschedule well woman exam and pap when you are not experiencing any bleeding.Assessed:Essential hypertension (ICD-401.9) (WCU15-Q92) Assessment: Instructions: Well controlled today without any medications. Letter generated for work purposes. Will continue to monitor with routine visits. Recommend reduced salt intake, cut back on caffeine and alcohol.Prediabetes (ICD10- R73.03): based on 07/2018 A1c Assessment: Instructions: Complete labs when able.Tobacco use (ICD-305.1) (XHD12-E99.0) Assessment: Instructions: Smoking cessation counseling was recommended with patient today.ADHD (ICD- 314.01) (EWY37-P52.9) Assessment: Instructions: Stable on current Methylphenidate. Call [...] TABLET-qdAllergies:No Known Allergies (updated 08/01/2019) Orders:Cardiology Consult [CPT-00204] Adult - Ofc Vst, EST, Level III [CPT-87255] Follow-Up Return to clinic: in 90 days for follow upAdditional Follow-Up: ADHD/HTNClinical Visit Summary Completed Name Value Range Interpretation Code Description Data Nimo rce(s) Supporting Document(s) ID Date Data Source [id number] 07/30/2019 07:00:00 AM EDT [facility] Name Value Range Interpretation Code Description Data Nimo rce(s) Supporting Document(s) SARS CORONAVIRUS 2 RNA [facility] This lab was ordered by [facility] and reported by [facility]. ID Date Data Source [id number] 07/24/2019 03:06:00 PM EDT [facility] Name Value Range Interpretation Code Description Data Nimo rce(s) Supporting Document(s) SARS CORONAVIRUS 2 RNA [facility] This lab was ordered by [facility] and reported by [facility]. ID Date Data Source [id number] 07/14/2019 11:32:27 AM EDT [facility] Measurements & CalculationsHeight: 64 inches [...] or Preferred Language: EnglishFamily and Home Address: [address] [place] [address] What is your housing situation today? I [...] 2 nights in a row in a prison, residential, mcc center or juvenile correctional facility? No Has [...] Recently moved to [facility] from [place]. Pt states she doesn't really have any concerns at this time. Pt states she does need med refills. Pt states she has been off Cymbalta for the last 3 weeks, due to running out, but feels her moods have been good and no depression. Not interested in restarting at this time. Last appt in [place] was about 3 months, was being seen [...] during this visit, including review of any hixh-qyk-mhamzhp medications, herbal therapies, and/or supplements.Allergy ReviewAllergy List [...] FairAssessment & Plan Problems:Added: Tobacco use (ICD-305.1) (LKO55-H80.0)Passive smoke exposure (ICD-V15.89) (ICD10- Z77.22)Essential hypertension (ICD-401.9) (OAF47-G43) Assessment: Instructions: Recently controlled without chlorthalidone. Complete labs and repeat BP at next visit, if this remains elevated then we will need to consider restarting prior BP medication.Recommend reduced salt intake, cut back on caffeine and alcohol, increase physical activity. 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 Goal BP is <140/90, please call the office if your blood pressures are consistently running higher than that cutoff. Call 911 or report to the closest ER for chest pain, shortness of breath, dizziness, or passing out.Prediabetes (GDB38-A90.03): based on 07/2018 A1c Assessment: Instructions: Recommend low carbohydrate diet: reduce pasta, bread, potatoes, rice. If you do eat carbohydrates, better choices are whole wheat and brown rice products. Recommend portion control and avoidance of soda and sugary foods. Increase physical activity and monitor weight.Fibromyalgia (ICD-729.1) (LHZ37-B11.7) Assessment: Instructions: Monitor, supportive measures.Change d:From: Dx of Encounter for general adult medical examination with abnormal findings (ICD-V70.0) (WHK20-C90.01) To: Encounter for general adult medical examination without abnormal findings (LNG58-R82.00)Assessed:Encounter for general adult medical examination without abnormal findings (VBJ78-A28.00) Assessment: Instructions: Recommend annual medical appointments. Recommend routine dental and vision care.ADHD (ICD-314.01) (HNG06-K83.9) Assessment: Instructions: Stable on current Methylphenidate. Refills sent.Allergic rhinitis (ICD-477.9) (HVV06-O57.9) Assessment: Instructions: Refills sent for cetirizine and montelukast.Asthma (bronchial or allergic) (ICD-493.90) (ICD10- J45.909) Assessment: Instructions: Refills sent for albuterol rescue puffer, continue allergy medications as prescribed.GENERALIZED ANXIETY DISORDER (ICD-300.02) (SZJ97-N47.1) Assessment: Instructions: Stable without medications. Call for any concerns, if you would like to resume prior Duloxetine.Encounter for screening for malignant neoplasm of colon (ICD-V76.51) (RWZ81-G69.11) Assessment: Instructions: Instructions reviewed for FIT testing as an alternative for colon cancer screening. Patient is aware if FIT is positive then a colonoscopy will be recommended.Removed:Atypical chest pain (ICD-786.59) (VPR53-H43.89), Anxiety (ICD-300.00) (OAF14-S04.9), Encounter for screening for other metabolic disorders (PNX09-K88.228)Patient Instructions/Care Plan: Encounter for general adult medical [...] alcohol, increase physical activity. We reviewed the shelter risks associated with uncontrolled high blood pressure, [...] HFA 108 (90 BASE) MCG/ACT INHALATION AEROSOL [id number]-3-0 puffs q 4-6 hour prn wheezing Qty: [...] Known Allergies (updated 07/14/2019) Orders:COMP METABOLIC PANEL [CPT-02006] CBC W/DIFF [CPT-850 25] HgBA1c [CPT-87212] LIPID PANEL [CPT-97905] TSH [CPT-10332] T-4 free [CPT- 94142] Vitamin D 250H Unspecified [CPT-64850] Preventive, New, (40-64) [CPT- 15460] Follow-Up Return to clinic: in 30 days for follow upAdditional Follow-Up: WWE/lab review/BP recheckClinical Visit Summary CompletedMedications:ALBUTEROL SULFATE HFA 108 (90 BASE) MCG/ACT INHALATION AEROSOL SOLUTION (ALBUTEROL SULFATE) 1-2 puffs q 4-6 hour prn wheezing #1[Inhalation] x 11 Route:INHALATION Entered and Authorized by: Rubio GERARDO Method used: Electronically to [facility] ([place]) [address] [place] [address] Fax: Note to Pharmacy: Route: INH; RxID: [id number] HCL 20 MG ORAL TABLET (METHYLPHENIDATE HCL) Take 1 tablet po bid; MDD 2 tablets #60[Tablet] x 0 Entered and Authorized by: Rubio GERARDO Method used: Electronically to [facility] (retail) [address] [place] [address] Note to Pharmacy: Route: ORAL; RxID: [id number] SODIUM 10 MG ORAL TABLET (MONTELUKAST SODIUM) Take 1 tablet po daily qhs #90[Tablet] x 3 Entered and Authorized by: Rubio GERARDO Method used: Electronically to [facility] (retail) [address] [place] [address] Note to Pharmacy: Route: ORAL; RxID: [id number] HCL 10 MG ORAL TABLET (CETIRIZINE HCL) Take 1 tablet po daily #90[Tablet] x 3 Entered and Authorized by: Rubio GERARDO Method used: Electronically to [facility] (retail) [address] [place] [id number] Note to Pharmacy: Route: ORAL; RxID: [id number] signed by Rubio GERARDO on 07/24/2019 at 10:21 AM Name Value Range Interpretation Code Description Data Nimo rce(s) Supporting Document(s) Procedure Vital Signs ID Date Data Source UNK Name Value Range Interpretation Code Description Data Source(s) Body weight 2432 [oz_av] 2432 [oz_av] SIRIA ([facility]) Systolic blood pressure 144 mm[Hg] 144 mm[Hg] A THENA ([facility]) Body mass index (BMI) [Ratio] 26.1 kg/m2 26.1 k g/m2 SIRIA ([facility]) Body height 64 [in_i] 64 [in_i] SIRIA ([facility]) Diastolic blood pressure 90 mm[Hg] 90 mm[Hg] SIRIA ([facility]) Body weight 2432 [oz_av] 2432 [oz_av] SIRIA ([facility]) Systolic blood pressure 144 mm[Hg] 144 mm[Hg] A [facility] ([facility]) Body mass index (BMI) [Ratio] 26.1 kg/m2 26.1 k g/m2 SIRIA ([facility]) Body height 64 [in_i] 64 [in_i] SIRIA ([facility]) Diastolic blood pressure 90 mm[Hg] 90 mm[Hg] SIRIA ([facility]) Body weight 2370.08 [oz_av] 2370.08 [oz_av] ATH SHAKEEL ([facility]) Systolic blood pressure 139 mm[Hg] 139 mm[Hg] [facility]) Body height 64 [in_i] 64 [in_i] SIRIA ([facility]) Diastolic blood pressure 86 mm[Hg] 86 mm[Hg] SIRIA ([facility]) Body weight 2370.08 [oz_av] 2370.08 [oz_av] ATH SHAKEEL ([facility]) Systolic blood pressure 139 mm[Hg] 139 mm[Hg] A [facility] ([facility]) Body height 64 [in_i] 64 [in_i] SIRIA ([facility]) Diastolic blood pressure 86 mm[Hg] 86 mm[Hg] SIRIA ([facility]) Body weight 2246.08 [oz_av] 2246.08 [oz_av] ATH SHAKEEL ([facility]) Systolic blood pressure 157 mm[Hg] 157 mm[Hg] [facility]) Systolic blood pressure 155 mm[Hg] 155 mm[Hg] A [facility] ([facility]) Body height 64 [in_i] 64 [in_i] SIRIA ([facility]) Diastolic blood pressure 84 mm[Hg] 84 mm[Hg] SIRIA ([facility]) Diastolic blood pressure 84 mm[Hg] 84 mm[Hg] SIRIA ([facility]) Body weight 2246.08 [oz_av] 2246.08 [oz_av] ATH SHAKEEL ([facility]) Systolic blood pressure 157 mm[Hg] 157 mm[Hg] [facility] ([facility]) Systolic blood pressure 155 mm[Hg] 155 mm[Hg] [facility] ([facility]) Body height 64 [in_i] 64 [in_i] SIRIA ([facility]) Diastolic blood pressure 84 mm[Hg] 84 mm[Hg] SIRIA ([facility]) Diastolic blood pressure 84 mm[Hg] 84 mm[Hg] SIRIA ([facility]) Body weight 2182.08 [oz_av] 2182.08 [oz_av] ATH SHAKEEL ([facility]) Systolic blood pressure 154 mm[Hg] 154 mm[Hg] A THENA ([facility]) Systolic blood pressure 146 mm[Hg] 146 mm[Hg] A THENA ([facility]) Body height 64 [in_i] 64 [in_i] SIRIA ([facility]) Diastolic blood pressure 98 mm[Hg] 98 mm[Hg] SIRIA ([facility]) Diastolic blood pressure 101 mm[Hg] 101 mm[Hg] SIRIA ([facility]) Body weight 2182.08 [oz_av] 2182.08 [oz_av] ATH SHAKEEL ([facility]) Systolic blood pressure 154 mm[Hg] 154 mm[Hg] A THENA ([facility]) Systolic blood pressure 146 mm[Hg] 146 mm[Hg] A [facility] ([facility]) Body height 64 [in_i] 64 [in_i] SIRIA ([facility]) Diastolic blood pressure 98 mm[Hg] 98 mm[Hg] SIRIA ([facility]) Diastolic blood pressure 101 mm[Hg] 101 mm[Hg] SIRIA ([facility]) Body weight 2306.08 [oz_av] 2306.08 [oz_av] ATH SHAKEEL ([facility]) Systolic blood pressure 126 mm[Hg] 126 mm[Hg] A THENA ([facility]) Body height 64 [in_i] 64 [in_i] SIRIA ([facility]) Diastolic blood pressure 80 mm[Hg] 80 mm[Hg] SIRIA ([facility]) Body weight 2306.08 [oz_av] 2306.08 [oz_av] ATH SHAKEEL ([facility]) Systolic blood pressure 126 mm[Hg] 126 mm[Hg] A [facility] ([facility]) Body height 64 [in_i] 64 [in_i] SIRIA ([facility]) Diastolic blood pressure 80 mm[Hg] 80 mm[Hg] SIRIA ([facility]) Body weight 2274.08 [oz_av] 2274.08 [oz_av] ATH SHAKEEL ([facility]) Systolic blood pressure 147 mm[Hg] 147 mm[Hg] A THENA ([facility]) Body height 64 [in_i] 64 [in_i] SIRIA ([facility]) Diastolic blood pressure 83 mm[Hg] 83 mm[Hg] SIRIA ([facility]) Body weight 2274.08 [oz_av] 2274.08 [oz_av] ATH SHAKEEL ([facility]) Systolic blood pressure 147 mm[Hg] 147 mm[Hg] A [facility] ([facility]) Body height 64 [in_i] 64 [in_i] SIRIA ([facility]) Diastolic blood pressure 83 mm[Hg] 83 mm[Hg] SIRIA ([facility]) Body mass index (BMI) [Ratio] 22.3 kg/m2 22.3 k g/m2 [facility] ([facility], [facility]) Body height 65 [in_i] 65 [in_i] [facility] ([facility], [facility]) 5'5" Body weight 134.00 [lb_av] 134.00 [lb_av] MEDEN T ([facility], [facility]) Body temperature 97.8 [degF] 97.8 [degF] [facility] ([facility], [facility]) Oxygen saturation in Arterial blood by Pulse oximetry 98 % 98 % [facility] ([facility], [facility]) Respiratory rate 17 /min 17 /min [facility] ( [facility], [facility]) Heart rate 115 /min 115 /min [facility] ([facility] [place], [facility]) Diastolic blood pressure 83 mm[Hg] 83 mm[Hg] MEDENT ([facility], [facility]) Systolic blood pressure 125 mm[Hg] 125 mm[Hg] M EDENT ([facility], [facility]) Patient Treatment Plan of Care Planned Activity Planned Date Details Description Data Source (s) Prednisone 20 MG Oral Tablet SIRIA ([facility]) Levofloxacin 500 MG Oral Tablet SIRIA ([facility]) doxycycline hyclate 100 MG Oral Tablet SIRIA ([facility]) Dexamethasone 4 MG Oral Tablet SIRIA ([facility]) Azithromycin 250 MG Oral Tablet SIRIA ([facility]) Prednisone 20 MG Oral Tablet SIRIA ([facility]) Levofloxacin 500 MG Oral Tablet SIRIA ([facility]) doxycycline hyclate 100 MG Oral Tablet SIRIA ([facility]) Dexamethasone 4 MG Oral Tablet SIRIA ([facility]) Azithromycin 250 MG Oral Tablet SIRIA ([facility])
[2020-03-16] MEDS ORDERED: NS 1,000 ML IV SCH (04:20)
[2020-03-16] MEDS ORDERED: ONDANSETRON 4MG/2ML VIAL IV ONE (04:30)
[2020-03-16] MEDS ORDERED: MORPHINE 4 MG/ML 1ML VIAL/SYRINGE (J2270) IV ONE (04:30)
[2020-03-16] MEDS: GASTROGRAFIN SOLUTION 30ML PO SCH ×2 (05:03→05:15)
[2020-03-16] MEDS ORDERED: ISOVUE-370 76% 100ML VIAL As Ordered ONE (05:13)
--- NOTE | 2020-03-16 06:29 | REPVR ---
PROCEDURE INFORMATION: Exam: CT Abdomen And Pelvis With Contrast Exam date and time: 03/16/2020 4:20 AM Age: 49 years old Clinical indication: Abdominal pain; Epigastric; Prior surgery; Surgery date: 3-7 days post-operative; Surgery type: Lap katelin; Additional info: Gen abd pain S/P lap katelin TECHNIQUE: Imaging protocol: Computed tomography of the abdomen and pelvis with intravenous contrast. Radiation optimization: All CT scans at this facility use at least one of these dose optimization techniques: automated exposure control; mA and/or kV adjustment per patient size (includes targeted exams where dose is matched to clinical indication); or iterative reconstruction. Contrast material: ISO; Contrast volume: 100 ml; Contrast route: INTRAVENOUS (IV); COMPARISON: No relevant prior studies available. FINDINGS: Pleural space: Small bilateral pleural effusions. Calcified nodule in the left lower lung and mild pleural thickening/scarring in the lingula. Mild ground-glass densities in the left lung base likely dependent edema. Liver: Fatty infiltration of liver. Gallbladder and bile ducts: Status post cholecystectomy. No large fluid collection is seen in the gallbladder fossa. Proximal CBD measures 8 mm and distal CBD tapers normally measuring 4.4 mm. No ductal stones. Pancreas: Normal. No ductal dilation. Spleen: Splenic granulomas. Adrenal glands: Normal. No mass. Kidneys and ureters: 5 mm simple cyst in the upper pole of the left kidney. Right kidney is unremarkable. Stomach and bowel: Small bowel is unremarkable. Ascending colon and transverse colon are unremarkable. Nondistention versus mild thickening of the descending colon and sigmoid colon. No surrounding inflammation. Appendix: Normal contrast filled appendix. Intraperitoneal space: Trace fluid in the pelvis. Vasculature: Mild atherosclerosis. Lymph nodes: Few prominent by lateral inguinal lymph nodes. These are not pathologically enlarged by CT criteria. Urinary bladder: Urinary bladder is not well distended otherwise unremarkable. Reproductive: Unremarkable as visualized. Bones/joints: Unremarkable. No acute fracture. Soft tissues: Mild moderate soft tissue swelling with foci of air in bilateral lateral abdominal la with trace fluid extending up to the inguinal region. No large fluid collection or hematoma formation. Findings most likely represent postsurgical changes. IMPRESSION: Status post cholecystectomy. No evidence of fluid in the gallbladder fossa. No ductal dilatation. Ascending colon and transverse colon are unremarkable. Nondistention versus mild thickening of the descending colon and sigmoid colon. No surrounding inflammation. Small bilateral pleural effusion. Mild dependent changes in the lungs. Fatty liver. Trace fluid in the pelvis. Mild moderate soft tissue swelling with foci of air in bilateral lateral abdominal la with trace fluid extending up to the inguinal region. No large fluid collection or hematoma formation. Findings most likely represent postsurgical changes. COMMENTS: Consistent with the [employer]'s Incidental Findings Committee white paper (J Am Tanya Radiol 2018): Any incidental renal lesion less than 1 cm or classified as too small to characterize, or any incidental cystic renal lesion characterized as simple-appearing, is likely benign. No follow-up imaging is recommended for these lesions per consensus recommendations based on imaging criteria. Electronically signed by: Jayla Farley On 03/16/2020 06:30:16 AM
[2020-03-16 06:30] VITALS: BP 186/93
[2020-03-16] MEDS ORDERED: ZOFR4TAB16 PO (06:41)
== END 2020-03-16 07:15 | disposition home or self-care (01) ==
LOC: M ED 02:26
DX: G89.18 Other acute postprocedural pain (principal); R10.9 Unspecified abdominal pain; Z90.49 Acquired absence of other specified parts of digestive tract; K76.0 Fatty (change of) liver, not elsewhere classified; I10 Essential (primary) hypertension; F32.9 Major depressive disorder, single episode, unspecified; F41.9 Anxiety disorder, unspecified; F90.0 Attention-deficit hyperactivity disorder, predominantly inattentive type; J44.9 Chronic obstructive pulmonary disease, unspecified; M79.7 Fibromyalgia; K21.9 Gastro-esophageal reflux disease without esophagitis; F17.200 Nicotine dependence, unspecified, uncomplicated; Z79.899 Other long term (current) drug therapy
CPT/HCPCS: 36415; 74177; 80048; 80076; 81001; 83690; 84703; 85025; 93041; 96374; 96375; 99284; J2270; J2405; Q9963; Q9967

== ENCOUNTER → 2020-06-02 | Outpatient (REF) | payer OTHER ==
[2020-06-02 11:33] LABS: APPEARANCE, URINE CLEAR (CLEAR); BACTERIA, URINE AUTO NEGATIVE (NEGATIVE); BILIRUBIN, URINE AUTO NEGATIVE (NEGATIVE); BLOOD, URINE BLOOD NEGATIVE (NEGATIVE); COLOR, URINE YELLOW (YELLOW); GLUCOSE, URINE (UA) AUTO NEGATIVE (NEGATIVE); KETONE, URINE AUTO NEGATIVE (NEGATIVE); LEUKOCYTE ESTERASE, URINE AUTO NEGATIVE (NEGATIVE); NITRITE, URINE AUTO NEGATIVE (NEGATIVE); PROTEIN, URINE AUTO NEGATIVE (NEGATIVE); RBC, URINE AUTO 1 /HPF (0-3); SPECIFIC GRAVITY URINE AUTO 1.013 (1.002-1.035); SQUAMOUS EPITHELIAL CELL UR AU 3 /HPF (0-6); UROBILINOGEN, URINE AUTO 0.2 mg/dL (0.0-2.0); WBC, URINE AUTO 0 /HPF (0-3)
[2020-06-02 11:36] LABS: BASO % 0.4 % (0.0-1.0); EOS # 0.5 10^3/uL (0.0-0.5); EOS % 6.2 % (0.0-3.0); HEMATOCRIT 39.8 % (36.0-47.0); HEMOGLOBIN 12.5 g/dl (12.0-15.5); LYMPH # 1.9 10^3/uL (1.5-5.0); LYMPH % 25.6 % (24.0-44.0); MEAN CORPUSCULAR HGB CONC 31.4 g/dl (32.0-36.5); MEAN CORPUSCULAR VOLUME 92.3 fl (80.0-96.0); MONO # 0.6 10^3/uL (0.0-0.8); MONO % 8.1 % (2.0-8.0); NEUTROPHILS # 4.3 10^3/uL (1.5-8.5); NEUTROPHILS % 59.3 % (36.0-66.0); PLATELET COUNT, AUTOMATED 284 10^3/uL (150-450); RED BLOOD COUNT 4.31 10^6/uL (4.00-5.40); WHITE BLOOD COUNT 7.3 10^3/uL (4.0-10.0)
[2020-06-02 12:15] LABS: ALT/SGPT 23 U/L (12-78); BILIRUBIN,TOTAL 0.3 MG/DL (0.2-1.0); BLOOD UREA NITROGEN 10 MG/DL (7-18); CALCIUM LEVEL 9.2 MG/DL (8.5-10.1); CARBON DIOXIDE LEVEL 27 MEQ/L (21-32); CHLORIDE LEVEL 107 MEQ/L (98-107); CHOLESTEROL LEVEL 174 MG/DL (<200); CHOLESTEROL RISK RATIO 4.243 (<5); CREATININE FOR GFR 0.58 MG/DL (0.55-1.30); FREE T4 1.03 NG/DL (0.76-1.46); GLOMERULAR FILTRATION RATE > 60.0 (>51); GLUCOSE, FASTING 92 MG/DL (70-100); HDL CHOLESTEROL 41 MG/DL (>40); LDL CHOLESTEROL 99 MG/DL (<100); NON-HDL-C 133 MG/DL; POTASSIUM SERUM 4.7 MEQ/L (3.5-5.1); SODIUM LEVEL 140 MEQ/L (136-145); TOTAL 25(OH) VITAMIN D 42.9 NG/ML (30.0-100.0); TOTAL PROTEIN 7.3 GM/DL (6.4-8.2); TRIGLYCERIDES LEVEL 168 MG/DL (<150)
== END ==
LOC: M LAB REF 11:02
PROVIDERS: ATTEND Internal Medicine
DX: E78.2 Mixed hyperlipidemia (principal); F90.0 Attention-deficit hyperactivity disorder, predominantly inattentive type

== ENCOUNTER → 2020-06-02 | Outpatient (REF) | payer OTHER ==
[2020-06-02 11:46] LABS: INR 1.11; PROTHROMBIN TIME 14.6 SECONDS (12.5-14.3)
== END ==
LOC: M LAB REF 11:00
PROVIDERS: ATTEND Internal Medicine Cardiovascular Disease
DX: I48.91 Unspecified atrial fibrillation (principal)

== ENCOUNTER → 2020-06-08 | Outpatient (REF) | payer OTHER ==
[2020-06-08 12:24] LABS: INR 1.19; PROTHROMBIN TIME 15.4 SECONDS (12.5-14.3)
== END ==
LOC: M LAB REF 11:27
PROVIDERS: ATTEND Internal Medicine Cardiovascular Disease
DX: I48.91 Unspecified atrial fibrillation (principal)

== ENCOUNTER → 2020-06-15 | Outpatient (REF) | payer OTHER ==
[2020-06-15 14:17] LABS: INR 1.88; PROTHROMBIN TIME 22.1 SECONDS (12.5-14.3)
== END ==
LOC: M LAB REF 13:52
PROVIDERS: ATTEND Internal Medicine Cardiovascular Disease
DX: I48.91 Unspecified atrial fibrillation (principal)

== ENCOUNTER → 2020-06-22 | Outpatient (REF) | payer OTHER ==
[2020-06-22 14:08] LABS: INR 1.93; PROTHROMBIN TIME 22.5 SECONDS (12.5-14.3)
== END ==
LOC: M LAB REF 12:44
PROVIDERS: ATTEND Internal Medicine Cardiovascular Disease
DX: I48.91 Unspecified atrial fibrillation (principal)

== ENCOUNTER → 2020-06-29 | Outpatient (REF) | payer OTHER ==
[2020-06-29 15:26] LABS: INR 1.69; PROTHROMBIN TIME 20.3 SECONDS (12.5-14.3)
== END ==
LOC: M LAB REF 14:43
PROVIDERS: ATTEND Internal Medicine Cardiovascular Disease
DX: Z48.812 Encounter for surgical aftercare following surgery on the circulatory system (principal); I48.91 Unspecified atrial fibrillation

== ENCOUNTER → 2020-07-07 | Outpatient (REF) | payer OTHER ==
[2020-07-07 12:23] LABS: INR 1.42; PROTHROMBIN TIME 17.7 SECONDS (12.5-14.3)
== END ==
LOC: M LAB REF 11:42
PROVIDERS: ATTEND Internal Medicine Cardiovascular Disease
DX: I48.91 Unspecified atrial fibrillation (principal)

== ENCOUNTER → 2020-07-14 | Outpatient (CLI) | payer OTHER ==
[2020-07-14 09:58] LABS: INR 1.3; PROTHROMBIN TIME 16.5 SECONDS (12.5-14.3)
== END ==
LOC: M LAB 09:08
PROVIDERS: ATTEND Internal Medicine Cardiovascular Disease
DX: I48.91 Unspecified atrial fibrillation (principal)

== ENCOUNTER → 2020-07-21 | Outpatient (CLI) | payer OTHER ==
[2020-07-21 11:28] LABS: INR 1.3; PROTHROMBIN TIME 16.5 SECONDS (12.5-14.3)
== END ==
LOC: M LAB 10:48
PROVIDERS: ATTEND Internal Medicine Cardiovascular Disease
DX: I48.91 Unspecified atrial fibrillation (principal)

== ENCOUNTER → 2020-07-28 | Outpatient (CLI) | payer OTHER ==
[2020-07-28 09:34] LABS: INR 1.69; PROTHROMBIN TIME 20.3 SECONDS (12.5-14.3)
== END ==
LOC: M LAB 08:50
PROVIDERS: ATTEND Internal Medicine Cardiovascular Disease
DX: I48.91 Unspecified atrial fibrillation (principal)

== ENCOUNTER → 2020-08-11 | Outpatient (CLI) | payer OTHER ==
[2020-08-11 11:19] LABS: INR 1.63; PROTHROMBIN TIME 19.7 SECONDS (12.5-14.3)
== END ==
LOC: M LAB 10:40
PROVIDERS: ATTEND Internal Medicine Cardiovascular Disease
DX: I48.91 Unspecified atrial fibrillation (principal)

== ENCOUNTER 2021-03-06 19:36 | Inpatient (IN) | payer OTHER ==
[~2021-03-06] VITALS: Ht 162.6 cm; Wt 71.0 kg
[~2021-03-06 19:36] MED LIST changes: -CETI-24; +CETI-24 PO; -HYDR50TA70; +HYDR50TA70 PO; -MONT10TA10; +MONT10TA10 PO
[2021-03-06] MEDS ORDERED: COMBIVENT RESPIMAT 100-20MCG INHALER 4GM INH ONE (19:50)
[2021-03-06 20:04] LABS: BASO # 0.1 10^3/uL (0.0-0.2); BASO % 0.5 % (0.0-1.0); EOS # 0.2 10^3/uL (0.0-0.5); EOS % 1.4 % (0.0-3.0); HEMATOCRIT 42.1 % (36.0-47.0); HEMOGLOBIN 13.7 g/dl (12.0-15.5); LYMPH # 1.8 10^3/uL (1.5-5.0); LYMPH % 13.5 % (24.0-44.0); MEAN CORPUSCULAR HEMOGLOBIN 29.7 pg (27.0-33.0); MEAN CORPUSCULAR HGB CONC 32.5 g/dl (32.0-36.5); MEAN CORPUSCULAR VOLUME 91.1 fl (80.0-96.0); MONO # 0.8 10^3/uL (0.0-0.8); MONO % 5.7 % (2.0-8.0); NEUTROPHILS # 10.4 10^3/uL (1.5-8.5); NEUTROPHILS % 78.7 % (36.0-66.0); PLATELET COUNT, AUTOMATED 203 10^3/uL (150-450); RED BLOOD COUNT 4.62 10^6/uL (4.00-5.40); WHITE BLOOD COUNT 13.2 10^3/uL (4.0-10.0)
[2021-03-06 20:41] LABS: ALBUMIN 3.5 GM/DL (3.2-5.2); ALT/SGPT 58 U/L (12-78); BILIRUBIN,DIRECT < 0.1 MG/DL (0.0-0.2); BILIRUBIN,TOTAL 0.1 MG/DL (0.2-1.0); BLOOD UREA NITROGEN 10 MG/DL (7-18); CALCIUM LEVEL 8.2 MG/DL (8.5-10.1); CARBON DIOXIDE LEVEL 26 MEQ/L (21-32); CHLORIDE LEVEL 111 MEQ/L (98-107); CREATININE FOR GFR 0.63 MG/DL (0.55-1.30); GLOMERULAR FILTRATION RATE > 60.0 (>51); GLUCOSE, FASTING 133 MG/DL (70-100); LIPASE 123 U/L (73-393); NT-PRO BNP 1335 PG/ML (<125); POTASSIUM SERUM 3.9 MEQ/L (3.5-5.1); SODIUM LEVEL 145 MEQ/L (136-145); TOTAL PROTEIN 6.8 GM/DL (6.4-8.2)
[2021-03-06] MEDS: METHYLPHENIDATE 5 MG TAB PO SCH (21:00)
[2021-03-06] MEDS ORDERED: IPRATROPIUM 0.5MG/ALBUTEROL 2.5MG INH SOL UD 3ML (DUONEB) NEB PRN (21:20)
--- NOTE | 2021-03-06 21:26 | REPVR ---
PROCEDURE INFORMATION: Exam: XR Chest Exam date and time: 03/06/2021 7:59 PM Age: 50 years old Clinical indication: Shortness of breath; Additional info: SOB TECHNIQUE: Imaging protocol: XR of the chest. Views: 1 view. COMPARISON: CR CHEST 2 VIEW 05/08/2018 7:22 PM FINDINGS: Lungs: Minimal patchy bilateral pulmonary infiltrates with vascular congestion. Pleural spaces: Unremarkable. No pleural effusion. No pneumothorax. Heart/Mediastinum: Borderline cardiomegaly. Bones/joints: Unremarkable. Other findings: Slight rotation to the right. IMPRESSION: Borderline cardiomegaly with minimal patchy bilateral pulmonary infiltrates and vascular congestion which may reflect early interval congestive failure or fluid overload since 05/08/2018. Electronically signed by: Carlos Eduardo Dean On 03/06/2021 21:25:23 PM
[2021-03-06] MEDS ORDERED: FUROSEMIDE 40MG/4ML VIAL (J1940) IV ONE (21:50)
[2021-03-06] MEDS ORDERED: ISOVUE-370 76% 100ML VIAL As Ordered ONE (21:53)
--- NOTE | 2021-03-06 23:10 | HPEPDOC ---
[facility] Medical History & Physical Date of Admission Mar 06, 2021 Date of Service: Mar 06, 2021 History and Physical CHIEF COMPLAINT: Shortness of breath HISTORY OF PRESENT ILLNESS: 50-year-old female history of COPD, asthma, hypertension, mitral valve replacement, anxiety and depression who was brought into the ED because of an episode of acute shortness of breath. Patient recalls eating a large [employer] sandwich when she dozed off in front of the TV next thing she remembers is she woke up with a coughing spell and threw up. She feels as though she likely choked on the food and possibly aspirated. She recalls similar episodes in the past. EMS reports to the ED that she was hypoxic when they arrived 86% on room air which improved to 97% with supplemental oxygen by nasal cannula she was also wheezing throughout. Patient reports feeling a little better but still short of breath. Reports her shortness of breath is worsened by exertion and by lying flat improved by sitting upright. She reports the Lasix she received in the ED and subsequently after she urinated some relief of her shortness of breath. She denies any chest pain currently or at any point. Denies leg swelling. Continues to cough and bring up sputum but has not vomited since the initial episode. Initially she refused CT chest angiogram fearing she is unable to lay flat however she feels improved enough that she would like to try again to go to get the scan done. In the ED was noted that her d-dimer was elevated, she received IV Lasix, she was ordered IV steroids and nebulizer treatment. Patient will be admitted to the medical service for further medical management. PAST MEDICAL/SURGICAL HISTORY: Asthma/COPD Hypertension Hyperlipidemia Mitral valve replacement May 2019 follows with auto crane driver Dr. Redd currently on baby aspirin. Tells me she was taken off of warfarin approximately 4 months ago by her auto crane driver. Anxiety/depression Cholecystectomy SOCIAL HISTORY: Endorses drinking alcohol on special occasions but not daily Endorses smoking approximately 1 pack per day for the past 25 years currently has tried to cut down now approximately half a pack per day Denies illicit drug use FAMILY HISTORY: Reviewed and none contributory to this admission ALLERGIES: Please see below. REVIEW OF SYSTEMS: 10 point review of systems complete all negative otherwise stated in HPI HOME MEDICATIONS: Please see below. PHYSICAL EXAMINATION: Constitutional: Awake and alert, in no apparent distress ENT: Sclera are clear. Mucosa is moist. Respiratory: Lungs mild scattered end expiratory wheezing bilaterally, right slightly worse than left. No use of accessory muscles. Saturating 97% on 4 L of supplemental oxygen by nasal cannula. Cardiovascular: Regular rate and rhythm Gastrointestinal: Abdomen is soft, non distended, non tender, BS present. Musculoskeletal: 1+ bilateral pitting lower extremity edema. Neurologic: No focal neurological deficit. Mental Status: A&O x3, normal affect Skin: No visible rashes LABORATORY DATA: See below. IMAGING: See chart MICROBIOLOGY: Please see below. ASSESSMENT/PLAN 50-year-old female history of COPD, asthma, hypertension, mitral valve replacement, anxiety and depression who was brought into the ED because of an episode of acute shortness of breath. Suspicion for multifactorial etiology of her shortness of breath including possible aspiration, pneumonia, CHF, COPD exacerbation. Admitted for medical management. # Shortness of breath: Precise etiology not yet clear. likely multifactorial. Possible aspiration vs pneumonia vs COPD vs CHF vs PE. Respiratory panel negativ e. # Possible aspiration episode: History of similar episodes in the past. Difficulty with solids and liquids. NPO tonight, swallow eval in the morning. # Possible aspiration pneumonia: possible PNA from CXR, increased sputum production. Follow up procalcitonin. IV Unasyn for now. # Acute on chronic COPD exacerbation: possibly exacerbated by aspiration episode. Duonebs scheduled and PRN. PO prednisone. IV doxycycline. # Elevated BNP: possibly mild CHF exacerbation, unknown EF. Some 1+ lower edema on exam. Noted improvement post IV lasix. Will order echo. IV lasix. # LBBB: no prior EKG that I could find to compare to. Denies chest pain at any point. initial point of care troponin negative. Repeat EKG in 12 hours. Tele. Follow up with cardiology Dr Redd. # Possible PE: history of acute SOB and hypoxia as well as elevated D-dimer 728, although better explained by the aspiration episode. Getting CT angio chest tonight. If positive, will start her on a heparin drip based on results. # Mitral valve replacement: endorses being taken off of warfarin by her auto crane driver. I recommended she follow up OP. Continue aspirin and metoprolol. # Hypertension: Continue home meds. Monitor and titrate # Hyperlipidemia: Continue home atorvastatin # Anxiety/depression: continue home meds # DVT prophylaxis: Heparin A Yousef Hospitalist Vital Signs Vital Signs Date Time Temp Pulse Resp B/P (MAP) Pulse Ox O2 Delivery O2 Flow Rate FiO2 03/06/21 22:45 68 94 03/06/21 21:45 151/71 (97) 03/06/21 20:15 Nasal Cannula 4.0 03/06/21 20:09 98.7 03/06/21 19:59 26 Laboratory Data Labs 24H Laboratory Tests 2 03/06/21 19:51: Immature Granulocyte % (Auto) 0.2, Neutrophils (%) (Auto) 78.7H, Lymphocytes (%) (Auto) 13.5L, Monocytes (%) (Auto) 5.7, Eosinophils (%) (Auto) 1.4, Basophils (%) (Auto) 0.5, Neutrophils # (Auto) 10.4H, Lymphocytes # (Auto) 1.8, Monocytes # (Auto) 0.8, Eosinophils # (Auto) 0.2, Basophils # (Auto) 0.1, Nucleated Red Blood Cells % (auto) 0.0, D-Dimer, Quantitative 728.65H, Anion Gap 8, Glomerular Filtration Rate > 60.0, Calcium Level 8.2L, Total Bilirubin 0.1L, Direct Bilirubin < 0.1, Aspartate Amino Transf (AST/SGOT) 40H, Alanine Aminotransferase (ALT/SGPT) 58, Alkaline Phosphatase 324H, HO-Uja-Z-Type Natriuretic Peptide 1335H, Total Protein 6.8, Albumin 3.5, Albumin/Globulin Ratio 1.1L, Lipase 123 03/06/21 20:04: POC Troponin I (Misc) 0.01 CBC/BMP Laboratory Tests 03/06/21 19:51 Microbiology Microbiology 03/06/21 Respiratory Virus Panel (PCR) ([facility]) - Final, Complete Home Medications Scheduled Amlodipine Besylate (Amlodipine Besylate) 5 Mg Tablet, 5 MG PO DAILY Aspirin (Aspirin EC) 81 Mg Tablet.dr, 81 MG PO DAILY Atorvastatin Calcium (Atorvastatin Calcium) 40 Mg Tablet, 40 MG PO QPM Cetirizine HCl (Cetirizine HCl) 10 Mg Tablet, 10 MG PO DAILY Doxepin HCl (Doxepin HCl) 10 Mg Capsule, 10 MG PO QHS Duloxetine HCl (Duloxetine HCl) 60 Mg Capsule.dr, 60 MG PO DAILY TAKES WITH 30MG TO EQUAL 90MG Duloxetine Hcl (Duloxetine HCl) 30 Mg Capsule.dr, 30 MG PO DAILY TAKES WITH 60MG TO EQUAL 90MG Hydroxyzine HCl (Hydroxyzine HCl) 50 Mg Tablet, 100 MG PO QHS Methylphenidate HCl (Methylphenidate HCl) 10 Mg Tablet, 10 MG PO BID Metoprolol Tartrate (Metoprolol Tartrate) 50 Mg Tablet, 50 MG PO BID Montelukast Sodium (Montelukast Sodium) 10 Mg Tablet, 10 MG PO DAILY Scheduled PRN Albuterol Sulfate (Albuterol Sulfate Hfa) 8.5 Gm Hfa.aer.ad, 2 PUFFS INH QID PRN for WHEEZING Allergies Coded Allergies: No Known Allergies (Unverified , 03/16/20) LEENA CLIFTON MD Mar 06, 2021 23:10
[2021-03-06] MEDS ORDERED: IPRATROPIUM 0.5MG/ALBUTEROL 2.5MG INH SOL UD 3ML (DUONEB) INH PRN (23:15)
[2021-03-06] MEDS ORDERED: MOM 30ML SUSPENSION UDC PO PRN (23:15)
[2021-03-06] MEDS ORDERED: METO50TA7 PO (23:27)
[2021-03-06] MEDS ORDERED: DOXE10CA PO (23:27)
[2021-03-06] MEDS ORDERED: ASPI-226 PO (23:27)
[2021-03-06] MEDS ORDERED: ALBU8.5H INH (23:27)
[2021-03-06] MEDS ORDERED: AMLO1TAB24 PO (23:27)
[2021-03-06] MEDS ORDERED: METH-1022 PO (23:27)
[2021-03-06] MEDS ORDERED: ATOR40TA75 PO (23:27)
[2021-03-06] MEDS ORDERED: DULO60CA35 PO (23:27)
[2021-03-06] MEDS ORDERED: HOME MED LIST COMPLETE! XX SCH (23:30)
[2021-03-06] MEDS: AMPICILLIN SOD/SULBACTAM SOD 3 GM in D5W MINI-BAG PLUS 100 ML IV SCH (23:58)
[2021-03-06] MEDS: hydrOXYzine 50 MG TAB PO SCH (23:58)
[2021-03-06] MEDS: METOPROLOL TART 50 MG TAB PO SCH (23:59)
--- NOTE | 2021-03-07 00:34 | REPVR ---
PROCEDURE INFORMATION: Exam: CTA Chest With Contrast Exam date and time: 03/06/2021 12:13 AM Age: 50 years old Clinical indication: Pain; Chest pressure; Additional info: SOB TECHNIQUE: Imaging protocol: Computed tomographic angiography of the chest with contrast. 3D rendering (Not supervised by radiologist): MIP and/or 3D reconstructed images were created by the technologist. Radiation optimization: All CT scans at this facility use at least one of these dose optimization techniques: automated exposure control; mA and/or kV adjustment per patient size (includes targeted exams where dose is matched to clinical indication); or iterative reconstruction. Contrast material: ISO 370; Contrast volume: 75 ml; Contrast route: INTRAVENOUS (IV); COMPARISON: CR PORTABLE CHEST X-RAY 03/06/2021 7:49 PM FINDINGS: Tubes, catheters and devices: Prosthetic mitral valve in position. Pulmonary arteries: The main pulmonary artery measures 28 mm. No pulmonary embolism is identified. Aorta: The ascending thoracic aorta measures 30 mm. Lungs: Bilateral scattered pulmonary infiltrates with some consolidation and atelectasis in the right middle lobe consistent with pneumonia. Calcified granuloma in the lateral left lower lobe. Pleural spaces: Unremarkable. No pneumothorax. No pleural effusion. Heart: Unremarkable. No cardiomegaly. No pericardial effusion. Lymph nodes: Calcified left hilar lymph nodes. Bones/joints: Unremarkable. No acute fracture. Soft tissues: Unremarkable. IMPRESSION: 1. Bilateral pulmonary infiltrates with atelectasis and consolidation in the right middle lobe consistent with pneumonia. 2. Prosthetic mitral valve in position. 3. Old granulomatous disease. 4. Otherwise negative CTA chest. No pulmonary embolism is identified. Electronically signed by: Carlos Eduardo Dean On 03/07/2021 00:34:14 AM
[2021-03-07] MEDS: DOXYCYCLINE HYCLATE 100 MG in D5W MINI-BAG PLUS 100 ML IV SCH ×2 (02:00→16:47)
[2021-03-07] MEDS: IPRATROPIUM 0.5MG/ALBUTEROL 2.5MG INH SOL UD 3ML (DUONEB) INH SCH ×3 (04:00→07:50)
--- NOTE | 2021-03-07 06:21 | ECGEPIP ---
[facility] - ED Test Date: 2021-03-06 Pat Name: MARIA G LEWIS Department: Room: [facility] Gender: Female Director Summer Sessions: ESTEFANÍA : 1970 Requested By: LINDSEY Parham Order Number: [id number] Reading MD: Art Crawford Measurements Intervals [place] Rate: 61 P: 46 MI: 146 QRS: 28 QRSD: 146 T: 118 QT: 488 QTc: 491 Interpretive Statements Normal sinus rhythm Possible Left atrial enlargement Left bundle branch block No prior ECG for comparison Electronically Signed on 03-07-2021 6:20:48 EST by Art Crawford
[2021-03-07 07:47] LABS: HEMATOCRIT 44.5 % (36.0-47.0); HEMOGLOBIN 14.7 g/dl (12.0-15.5); MEAN CORPUSCULAR HEMOGLOBIN 29.5 pg (27.0-33.0); MEAN CORPUSCULAR VOLUME 89.4 fl (80.0-96.0); PLATELET COUNT, AUTOMATED 188 10^3/uL (150-450); RED BLOOD COUNT 4.98 10^6/uL (4.00-5.40); WHITE BLOOD COUNT 11.3 10^3/uL (4.0-10.0)
[2021-03-07 08:15] LABS: ALBUMIN 3.7 GM/DL (3.2-5.2); ALT/SGPT 51 U/L (12-78); BILIRUBIN,TOTAL 0.3 MG/DL (0.2-1.0); BLOOD UREA NITROGEN 11 MG/DL (7-18); CALCIUM LEVEL 9.2 MG/DL (8.5-10.1); CARBON DIOXIDE LEVEL 30 MEQ/L (21-32); CHLORIDE LEVEL 107 MEQ/L (98-107); CREATININE FOR GFR 0.64 MG/DL (0.55-1.30); GLOMERULAR FILTRATION RATE > 60.0 (>51); GLUCOSE, FASTING 156 MG/DL (70-100); POTASSIUM SERUM 3.8 MEQ/L (3.5-5.1); SODIUM LEVEL 141 MEQ/L (136-145); TOTAL PROTEIN 6.9 GM/DL (6.4-8.2)
[2021-03-07] MEDS: AMPICILLIN SOD/SULBACTAM SOD 3 GM in D5W MINI-BAG PLUS 100 ML IV SCH ×4 (08:25→23:26)
[2021-03-07] MEDS: HEPARIN SOD (PORCINE) 5000UNITS/ML 1ML VIAL/SYRINGE SC SCH ×3 (08:26→20:54)
[2021-03-07] MEDS ORDERED: E-Z-HD 98% w/w 340GM SUSP BTL As Ordered ONE (08:50)
[2021-03-07] MEDS ORDERED: E-Z-PAQUE 96% w/w SUSP 176GM BTL As Ordered ONE (08:50)
[2021-03-07] MEDS ORDERED: E-Z-GAS II EFFERVESCENT PACKET (SODIUM BICARB./CITRIC ACID/SIMETHICONE) As Ordered ONE (08:50)
[2021-03-07] MEDS: MONTELUKAST 10 MG TAB PO SCH (09:00)
[2021-03-07] MEDS: amLODIPine 5 MG TAB PO SCH (09:00)
[2021-03-07] MEDS: METOPROLOL TART 50 MG TAB PO SCH ×2 (09:00→20:54)
[2021-03-07] MEDS: ASPIRIN 81MG ENTERIC TABLET PO SCH (09:00)
[2021-03-07] MEDS ORDERED: FUROSEMIDE 20MG/2ML VIAL (J1940) IV SCH (09:00)
[2021-03-07] MEDS: METHYLPHENIDATE 5 MG TAB PO SCH ×2 (09:00→20:54)
[2021-03-07] MEDS ORDERED: DULoxetine 30MG CAPSULE (CYMBALTA) PO SCH ×2 (09:00)
[2021-03-07] MEDS: predniSONE 20 MG TAB PO SCH (09:00)
--- NOTE | 2021-03-07 10:57 | ECGEPIP ---
[facility] Test Date: 2021-03-07 Pat Name: MARIA G LEWIS Department: Room: [place] [address] Gender: Female Fluorescent Lighting Model Maker: ERNESTINE : 1970 Requested By: LEENA Ahumada Order Number: [id number] Reading MD: Alexx Moreno Measurements Intervals [place] Rate: 68 P: 55 IN: 152 QRS: 17 QRSD: 136 T: 124 QT: 498 QTc: 529 Interpretive Statements Normal sinus rhythm Possible Left atrial enlargement Left bundle branch block No significant change compared with 03/06/2021. Electronically Signed on 03-07-2021 10:57:14 EST by Alexx Moreno
[2021-03-07] MEDS: COMBIVENT RESPIMAT 100-20MCG INHALER 4GM INH SCH ×4 (11:32→23:48)
[2021-03-07] MEDS: NICOTINE 14 MG/24 HR TRANSDERMAL TD SCH (13:08)
--- NOTE | 2021-03-07 14:46 | IPNPDOC ---
Text Note Date of Service The patient was seen on 03/07/21. NOTE Subjective: Shannon Jimenez is a 50 year old female with a PMHx of mitral valve replacement (06/2020), chronic obstructive lung disease, HTN, current smoker, and anxiety/depression who presented to the [facility] ED with an acute onset SOB. Patient states she was eating a sandwich lying down in bed and fell asleep, next thing she recalls is waking up from coughing that quickly matured into an episode of emesis. upon arrival to ED she was hypoxic and was requiring 2LNC which has since decreased to 1L with a saturation of ~ 93%. In ED a dose of Lasix was administered after which she reported improvement in her symptoms. On presentation she was found to have an elevated d-dimer but a PE has since been ruled out by CTA. AT bedside exam 03/07/21, patient reports a marked improvement in her state compared to yesterday, she still notes a productive cough of yellow sputum and dizziness on exertion. Patient notes that she heats her home with gas, no wood furnace of any kind. Of note, she states her grandson was with her this sunday and had what she said was just "a cold". She denies any current drug use but did report "trying pot and coke" in high school. She had stated infrequent alcohol use currently, but remarks on an extensive use approximately 5 years ago when it was her normal to have 4 or so glasses of wine per evening. She denies headache, chest pain/pressure, nausea, vomiting, diarrhea, dysuria, hematuria, and numbness/tingling in any extremity. She did say she was SOB but that it was much better than when she presented. She does endorse an unvaccinated status against the novel coronavirus. ROS: A 10 point review of systems was found to be negative except for pertinent positives as listed in the HPI. Objective: Vitals: See below General: Patient is a somewhat somnolent 50 year old who appears stated age and is in no acute distress HEENT: NT/AC, EOMI, PERRLA, moist mucous membranes Cardiac: RRR, loud mitral valve auscultated due to valvuloplasty Respiratory: End expiratory wheezing appreciated B/L from middle right lobe down and left lower lobe. no rales or rhonchi appreciated. Abdominal: NT/ND, large soft abdomen. No rebound or guarding. Hyperactive bowel sounds. Extremities: Unremarkable for edema B/L, 5/5 strength Neuro: CN 2-12 intact, no gross focal deficits Psychiatric: Mood and affect appropriate Imaging: #. 03/07/21 Esophageal X- ray, results pending #. 03/06 CTA: "IMPRESSION: 1. Bilateral pulmonary infiltrates with atelectasis and consolidation in the right middle lobe consistent with pneumonia. 2. Prosthetic mitral valve in position. 3. Old granulomatous disease. 4. Otherwise negative CTA chest. No pulmonary embolism is identified. " #. 03/06 CXR: "IMPRESSION: Borderline cardiomegaly with minimal patchy bilateral pulmonary infiltrates and vascular congestion which may reflect early interval congestive failure or fluid overload since 05/08/2018. " #. 03/07 EKG: "Normal sinus rhythm Possible Left atrial enlargement Left bundle branch block No significant change compared with 03/06/2021. Electronically Signed on 03-07-2021 10:57:14 EST by Alexx Moreno" Assessment: Shannon Jimenez is a 50 year old female with a PMHx of mitral valve replacement, chronic obstructive lung disease, HTN, current smoker, former daily significant alcohol consumer, and anxiety/depression who presented to the [facility] ED with an acute onset SOB and is found to have B/L pulmonary infiltrates + atelectasis with right middle lobe consolidation concerning for multifocal pneumonia. Plan: #. SOB 2/2 multifocal interstitial pneumonia with possible COPD exacerbation - Imaging shows right middle consolidation, B/L pulmonary infiltrates and atelectasis - Hx of aspiration the night prior to admission - Recent sick contact with her grandson on (3 days ago) -Reported history of both COPD and asthma; but no recent PFT documentation available - PE ruled out - Resp PCR negative but patient is unvaccinated - Current hx of hypoxia controlled with 1LNC, and continuous cough productive of yellow sputum - Leukocytosis with elevated absolute neutrophil count - procalcitonin of < 0.05 suggestive of viral etiology - c.w Doxycycline and Unisyn #. Acute on Chronic COPD exacerbation likely 2/2 to multifocal pneumonia - hypoxic on 1LNC; of note, patient does not use oxygen at home - aspiration episode with associated elevated d-dimer - esophageal x-ray and speech therapy evals ordered per aspiration hx - patient is on antibiotics and PO prednisone; C/W incentive spirometer #. Elevated BNP on admission -BNP 1335 on admission; no prior values on record to assess for baseline - Lasix resulted in symptom improvement in ED, will be continued daily IV at 20mg - ECHO results pending; no prior echo study on record for reference -I think those who are repeating BNP on 1/4 AM labs #. Hx Mitral Valve replacement in June 2020 - c/w aspirin and Lopressor -Currently on aspirin daily as well as metoprolol tartrate 50 bid; patient confirmed that there was no stent placement at the time of her catheterization and valve replacement 8 months ago. #Left bundle branch block on EKG, onset unknown -2 EKGs ordered since admission (evening of 03/06 and morning of 03/07), both showing left bundle branch block -There are no comparison EKG studies from which to assess chronicity of LBB -Of note, also has prolonged QTC -C/W telemetry -Initial troponin in ED unremarkable #Prolonged QTC -Initial EKG QTC of 491 with repeat EKG showing QTC of 529 -Home duloxetine dosing has been decreased from 90 mg daily to 60 mg -Avoiding addition of any further QTC prolonging agents -on telemetry #Person under investigation for novel coronavirus -Initial respiratory viral panel was negative in the ED, which included PCR Covid test -Patient is unvaccinated and was exposed to a family member 3 days ago who had "a cold" -This in the setting of her elevated D-dimer, unremarkable pro-Gil indicating towards largely viral process with multifocal pneumonia, and acute hypoxia all portend possibility of false negative -On consultation with [facility] infection control, will repeat respiratory viral panel 48 hours after initial study in place patient as a PUI with contact and isolation precaution -She remains on continuous pulse ox #. HTN - c/w Lopressor; has been hemodynamically stable since admission #. HLD - c/w atorvastatin #. Anxiety + Depression - c/w sertaline #. Current smoker status - started on Nicotine patch 14 mg -Previously a pack per day smoker and now has cut down to roughly about half a pack per day #Reported history of adult ADHD -Patient states she was diagnosed "20 years ago" with adult onset ADHD and has been on Ritalin since DVT Prophylaxis: c/w Heparin Code status: FULL CODE Disposition: Pending clinical improvement, expect at least 1 more midnight stay VS,Fishbone, I+O VS, Fishbone, I+O Laboratory Tests 03/06/21 19:51 03/07/21 07:35 Vital Signs Date Time Temp Pulse Resp B/P (MAP) Pulse Ox O2 Delivery O2 Flow Rate FiO2 03/07/21 12:37 71 20 134/67 (89) 93 Nasal Cannula 2.0 03/06/21 20:09 98.7 GME ATTESTATION GME ATTESTATION My faculty preceptor for this patient encounter was physically present during the encounter and was fully available. All aspects of the patient interview, examination, medical decision making process, and medical care plan development were reviewed and approved by the faculty preceptor. The faculty preceptor is aware and concurs with the plan as stated in the body of this note and will attest to such by his/her cosignature. ATTENDING NOTE I, Dusty Albrecht MD, have independently examined this patient and performed my own physical exam while the residents and students were with me in the room, as well as reviewed the documentation and edited where necessary. I have discussed in detail with the resident / student the findings and plan of treatment as documented by the resident / student and edited their note. I agree with their findings and treatment plan and have edited their documentation. MOSHE HAAS OMS-3 Mar 07, 2021 14:46 KATHLEEN DINH D.O. Mar 07, 2021 17:27 DUSTY ALBRECHT MD Mar 10, 2021 15:28
[2021-03-07 16:04] VITALS: BP 140/78
--- NOTE | 2021-03-07 17:19 | REP ---
INDICATION: coughing and aspiration episodes. Difficulty with solid/liquid. COMPARISON: None. TECHNIQUE: This procedure was performed under the direct supervision of Dr. Aguilar. Images were reviewed with Dr. Aguilar. Liquid barium and gas producing granules were given in the erect position as well as liquid barium in the prone oblique positions in order to perform a double contrast esophagram examination. A combination of fluoroscopy, spot films and last image hold technology was utilized. 0.8 minutes of fluoro time was utilized for this procedure. FINDINGS: A single view PA chest x-ray is submitted as a corner cutter film. There are bilateral infiltrates. The infiltrate in the right base has mildly increased since the previous chest x-ray performed on 03/06/2021. The oral and pharyngeal stages of deglutition are unremarkable. 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 Esophageal transport is prompt and efficient and there is no esophagitis, stricture or mucosal ring. There is a small sliding-type hiatal hernia.There is gastroesophageal reflux demonstrated to the level of the thoracic inlet. IMPRESSION: 1. 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 2. There is a small sliding-type hiatal hernia. There is gastroesophageal reflux demonstrated to the level of the thoracic inlet. <Electronically signed by Jeffrey Sullivan > 03/07/21 1614 <Electronically signed by Nehemias Aguilar > 03/07/21 1715
[2021-03-07] MEDS ORDERED: ATORVASTATIN 20 MG TAB PO SCH (18:00)
[2021-03-07 20:00] VITALS: BP 138/72
[2021-03-07] MEDS: hydrOXYzine 50 MG TAB PO SCH (20:53)
[2021-03-07] MEDS ORDERED: DOXEPIN 10 MG PO SCH (21:00)
[2021-03-08] VITALS: BP_SYST 121; BP_SYST 140; BP_DIAS 58; BP_DIAS 84
[2021-03-08] MEDS: DOXYCYCLINE HYCLATE 100 MG in D5W MINI-BAG PLUS 100 ML IV SCH (02:02)
[2021-03-08] MEDS: COMBIVENT RESPIMAT 100-20MCG INHALER 4GM INH SCH ×4 (03:29→15:29)
[2021-03-08 04:00] VITALS: BP 153/73
[2021-03-08] MEDS: AMPICILLIN SOD/SULBACTAM SOD 3 GM in D5W MINI-BAG PLUS 100 ML IV SCH (05:24)
[2021-03-08] MEDS: HEPARIN SOD (PORCINE) 5000UNITS/ML 1ML VIAL/SYRINGE SC SCH ×2 (05:25→14:00)
[2021-03-08 06:06] LABS: BASO % 0.4 % (0.0-1.0); EOS # 0.1 10^3/uL (0.0-0.5); EOS % 0.8 % (0.0-3.0); HEMATOCRIT 41.6 % (36.0-47.0); HEMOGLOBIN 13.8 g/dl (12.0-15.5); LYMPH # 1.9 10^3/uL (1.5-5.0); LYMPH % 17.7 % (24.0-44.0); MEAN CORPUSCULAR HEMOGLOBIN 29.4 pg (27.0-33.0); MEAN CORPUSCULAR HGB CONC 33.2 g/dl (32.0-36.5); MEAN CORPUSCULAR VOLUME 88.7 fl (80.0-96.0); MONO # 0.9 10^3/uL (0.0-0.8); MONO % 8.3 % (2.0-8.0); NEUTROPHILS # 7.7 10^3/uL (1.5-8.5); NEUTROPHILS % 72.3 % (36.0-66.0); PLATELET COUNT, AUTOMATED 196 10^3/uL (150-450); RED BLOOD COUNT 4.69 10^6/uL (4.00-5.40); WHITE BLOOD COUNT 10.7 10^3/uL (4.0-10.0)
[2021-03-08 06:54] LABS: ALBUMIN 3.5 GM/DL (3.2-5.2); ALT/SGPT 35 U/L (12-78); BILIRUBIN,TOTAL 0.6 MG/DL (0.2-1.0); BLOOD UREA NITROGEN 11 MG/DL (7-18); CARBON DIOXIDE LEVEL 31 MEQ/L (21-32); CHLORIDE LEVEL 100 MEQ/L (98-107); CREATININE FOR GFR 0.51 MG/DL (0.55-1.30); GLOMERULAR FILTRATION RATE > 60.0 (>51); GLUCOSE, FASTING 127 MG/DL (70-100); MAGNESIUM LEVEL 1.9 MG/DL (1.8-2.4); NT-PRO BNP 360 PG/ML (<125); POTASSIUM SERUM 2.8 MEQ/L (3.5-5.1); SODIUM LEVEL 138 MEQ/L (136-145); TOTAL PROTEIN 7.1 GM/DL (6.4-8.2)
[2021-03-08 08:00] VITALS: BP 137/63
[2021-03-08 08:29] VITALS: BP 137/63
[2021-03-08] MEDS: MONTELUKAST 10 MG TAB PO SCH (08:29)
[2021-03-08] MEDS: METOPROLOL TART 50 MG TAB PO SCH (08:29)
[2021-03-08] MEDS: predniSONE 20 MG TAB PO SCH (08:29)
[2021-03-08] MEDS: amLODIPine 5 MG TAB PO SCH (08:30)
[2021-03-08] MEDS: NICOTINE 14 MG/24 HR TRANSDERMAL TD SCH (08:31)
[2021-03-08] MEDS: ASPIRIN 81MG ENTERIC TABLET PO SCH (08:31)
[2021-03-08] MEDS ORDERED: POTASSIUM CHLORIDE 10MEQ SR TABLET PO ONE ×2 (09:00→12:00)
[2021-03-08] MEDS ORDERED: DULoxetine 30MG CAPSULE (CYMBALTA) PO SCH (09:00)
[2021-03-08] MEDS: KCL 10MEQ/100ML SWI (KRUN) 10 MEQ in IV 1 EA IV SCH ×2 (10:00→11:32)
[2021-03-08 10:29] VITALS: O2SAT 93
[2021-03-08] MEDS: METHYLPHENIDATE 5 MG TAB PO SCH (11:42)
[2021-03-08 12:00] VITALS: BP 142/74
[2021-03-08 12:46] LABS: BLOOD UREA NITROGEN 14 MG/DL (7-18); CALCIUM LEVEL 9.9 MG/DL (8.5-10.1); CARBON DIOXIDE LEVEL 27 MEQ/L (21-32); CHLORIDE LEVEL 101 MEQ/L (98-107); CREATININE FOR GFR 0.77 MG/DL (0.55-1.30); GLOMERULAR FILTRATION RATE > 60.0 (>51); GLUCOSE, FASTING 166 MG/DL (70-100); POTASSIUM SERUM 3.8 MEQ/L (3.5-5.1); SODIUM LEVEL 138 MEQ/L (136-145)
[2021-03-08] MEDS ORDERED: CYMB1CAP5 PO (12:59)
[2021-03-08] MEDS ORDERED: CYMB60CA4 PO (12:59)
[2021-03-08] MEDS ORDERED: POTA20TA6 PO (12:59)
[2021-03-08] MEDS ORDERED: COMBAER6 INH (12:59)
[2021-03-08] MEDS ORDERED: DOXY-350 PO (12:59)
[2021-03-08] MEDS ORDERED: NICO7DIS4 TOP (12:59)
--- NOTE | 2021-03-08 13:45 | DS.PDOC ---
Discharge Summary General Date of Admission Mar 06, 2021 at 23:11 Date of Discharge 03/08/21 Attending Physician: DUSTY ALBRECHT MD Discharge Summary PROCEDURES PERFORMED DURING STAY: None. ADMITTING DIAGNOSES: #. SOB of unknown etiology #. Hx Mitral valve replacement #. COPD #. HTN #. HLD #. Current smoker status #. Anxiety + Depression #. ADHD DISCHARGE DIAGNOSES: #. SOB 2/2 multifocal pneumonia #. Hx Mitral valve replacement #. COPD #. HTN #. HLD #. Current smoker status #. LBBB #. Prolonged QTc #. Anxiety + Depression #. ADHD COMPLICATIONS/CHIEF COMPLAINT: Congestive Heart Fialure, Elvated D-Dimer, Hypoxia. HISTORY OF PRESENT ILLNESS: Shannon Jimenez is a 50 year old female with a PMHx of mitral valve replacement (06/2020), chronic obstructive lung disease, HTN, current smoker, and anxiety/depression who presented to the [facility] ED with an acute onset SOB. Patient states she was eating a sandwich lying down in bed and fell asleep, next thing she recalls is waking up from coughing that quickly matured into an episode of emesis. Upon arrival to ED she was hypoxic at 86% on RA. 2LNC supplemental O2 was applied with adequate improvement. Eventually O2 was decreased to 1L, and she was maintaining saturations around 93%. A dose of Lasix was administered after which she reported improvement in her symptoms. Other notable lab work revealed an elevated d-dimer, with subsequent rule out of pulmonary embolism on CTA. A chest x-ray showed bilateral multifocal infiltrates. The CTA showed bilateral atelectasis with a discrete right middle lobe consolidation. At bedside exam 03/07/21, patient reports a marked improvement in her state compared to yesterday, she still notes a productive cough of yellow sputum and dizziness on exertion. Patient notes that she heats her home with gas, no wood furnace of any kind. Of note, she states her grandson was with her this sunday and had what she said was just "a cold". She denies any current drug use but did report "trying pot and coke" in high school. She had stated infrequent alcohol use currently, but remarks on an extensive use approximately 5 years ago when it was her normal to have 4 or so glasses of wine per evening. She denies headache, chest pain/pressure, nausea, vomiting, diarrhea, dysuria, hematuria, and numbness/tingling in any extremity. She did say she was SOB but that it was much better than when she presented. She does endorse an unvaccinated status against the novel coronavirus. On day of discharge patient reports feeling much better but reports a return to yellow/brown sputum after it had been white overnight. She is currently ambulating well and satting in the low 90%'s on RA. Patient expressed excitement with the idea of discharge. HOSPITAL COURSE: IV steroids and inhaler treatments were administered and helped to diminish the patients respiratory symptoms. Patient did have a negative respiratory viral panel upon admission but after initial work-up, it was felt she was appropriate to be deemed a person under investigation as a relates the novel coronavirus. The patient had multifocal pneumonia, had hypoxia on room air in the ED, is unvaccinated against Covid, is an active smoker, and may have been exposed to a family member 3 days prior who had "cold-like symptoms." On collaborative discussion with infectious control team, decision was made to place the person under investigation with Covid PPE required and a repeat PCR test. Repeat PCR 03/08 prior to discharge was again negative for the novel coronavirus. In the setting of possible aspiration pneumonia based on patient's HPI, aspiration precautions were ordered, as well as a speech therapy evaluation with bedside swallow and esophagram study. The esophageal x-ray showed webbing at C3-4 along with GERD and a small hiatal hernia. On 03/08, subsequent follow-up speech therapy evaluation deemed patient appropriate to return to a regular diet. 2 g sodium diet was ordered for lunch and 03/08 and patient tolerated this without any issues. Admitting service initiated IV Unasyn and doxycycline I/S/O possible aspiration pneumonia. Initial procalcitonin came back unremarkable (less than 0.05), and on 03/08, patient's white count improved and she remained afebrile. It was felt that her multifocal pneumonia was most likely secondary to viral etiology only. As such, upon discharge patient was instructed to complete 5 days total of doxycycline dosing. She had complete 1 full day of IV dosing, and therefore a 40 oral prescription was sent to her pharmacy. The Unasyn was stopped on 03/09 with no equivalent oral antimicrobial dosing warranted due to presumed viral-only pneumonia and the concomitant completion of doxycycline as previously stipulated. Of note, the last dose of Unasyn did cause some burning at the IV site but she did complete that dose. On EKG a long QT and LBB was revealed. Due to the LBBB her Cymbalta dose was reduced. This EKG was repeated and revealed the same information, a 3rd has been ordered at this time to asses the QTc length. On day of discharge patient was found to be hypokalemic entheses serum potassium 2.8). With significant improvement on repeat BMP, and in the setting of hypokalemia, Lasix was and she was repleted orally (as the IV was removed) with two 40 mEqs. Patient will be discharged with detailed instructions for 2 days of oral potassium. Prior to discharge patient was instructed with v multiple specific discharge instructions which are outline d extensively in the discharge plan below .patients BNP has decreased and WBC count is downtrending almost to be WNL. The patient is also saturate around 93% while ambulating on RA; with demonstrated maintenance of her saturations with extensive ambulation per nursing. DISCHARGE MEDICATIONS: Please see below. ALLERGIES: Please see below. PHYSICAL EXAMINATION ON DISCHARGE: VITAL SIGNS: Please see below. GENERAL: Shannon Jimenez is a well appearing 50 year old female sitting upright in bed who looks older than stated age and is in no acute distress HEENT: EOMI, PERRLA, NC/AT, moist mucous membranes CARDIOVASCULAR EXAMINATION: RRR, distant heart sounds somewhat masked by the loud mitral valve prosthesis RESPIRATORY EXAMINATION: Diffuse inspiratory stridor in upper portions B/L. Productive cough of yellow/brown sputum. No rales ABDOMINAL EXAMINATION: NT/ND, normoactive bowel sounds, no rebound or guarding EXTREMITIES: 5/5 Muscle strength B/L, no edema noted SKIN: Good turgor, no jaundice NEUROLOGICAL EXAMINATION: CN 2-12 intact, no gross focal deficits PSYCHIATRIC EXAMINATION: Mood and affect appropriate. LABORATORY DATA: Please see below. IMAGING: #. 03/06/21 CXR: "IMPRESSION: Borderline cardiomegaly with minimal patchy bilateral pulmonary infiltrates and vascular congestion which may reflect early interval congestive failure or fluid overload since 05/08/2018. " #. 03/06/21 CTA: "IMPRESSION: 1. Bilateral pulmonary infiltrates with atelectasis and consolidation in the right middle lobe consistent with pneumonia. 2. Prosthetic mitral valve in position. 3. Old granulomatous disease. 4. Otherwise negative CTA chest. No pulmonary embolism is identified. " #. Esophageal X-ray: "IMPRESSION: 1. 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 2. There is a small sliding-type hiatal hernia. There is gastroesophageal reflux demonstrated to the level of the thoracic inlet." PROGNOSIS: Good ACTIVITY: As tolerated. DIET: As tolerated DISCHARGE PLAN: Home DISCHARGE INSTRUCTIONS + ITEMS TO FOLLOW UP ON OUTPATIENT: -Follow-up with your PCP in 5 days. -Please get a repeat CXR in 1 month to assess for any endobronchial issues/pathology -Complete a pulmonary function test (PFT) in the next 1-2wks -Please establish care with a die casting machine maintainer through your PCP -It is strongly recommended that you seek vaccination against the novel coronavirus. -Discuss consideration Pneumovax 23 administration with your PCP -Please complete the prescription for your prednisone taper (20 mg daily for 4 days) -Please complete the remaining prescription of oral doxycycline to ensure 5 total days of antibiotics -Please take the two days of potassium chloride tablet supplementation (20 mEq daily for 2d) -Please take new duloxetine script of 60 mg daily due to prolonged cardiac cycle (prolonged qtc). -Be aware that scripts for nicotine patch prn and qd combivent have been sent to your pharmacy. Continuation of these on future scripts can be discussed with your PCP. -Please work on a smoking cessation plan with your PCP. -No need at this time for Lasix at home -Should your presenting symptoms return and/or acutely worsen, please return to the ED. -Please comply with the above treatment plan. -Thank you for the opportunity to participate in your care. DISCHARGE CONDITION: Stable. TIME SPENT ON DISCHARGE: 37 minutes. Vital Signs/I&Os Vital Signs Date Time Temp Pulse Resp B/P (MAP) Pulse Ox O2 Delivery O2 Flow Rate FiO2 03/08/21 10:29 93 Room Air 03/08/21 08:29 79 137/63 03/08/21 08:00 98.4 16 2.0 I&O- Last 24 Hours up to 6 AM 03/08/21 06:00 Intake Total 360 ml Output Total 600 ml Balance -240 ml Laboratory Data Labs 24H Laboratory Tests 2 03/08/21 05:20: Immature Granulocyte % (Auto) 0.5, Neutrophils (%) (Auto) 72.3H, Lymphocytes (%) (Auto) 17.7L, Monocytes (%) (Auto) 8.3H, Eosinophils (%) (Auto) 0.8, Basophils (%) (Auto) 0.4, Neutrophils # (Auto) 7.7, Lymphocytes # (Auto) 1.9, Monocytes # (Auto) 0.9H, Eosinophils # (Auto) 0.1, Basophils # (Auto) 0.0, Nucleated Red Blood Cells % (auto) 0.0, Anion Gap 7L, Glomerular Filtration Rate > 60.0, Calcium Level 9.0, Magnesium Level 1.9, Total Bilirubin 0.6#, Aspartate Amino Transf (AST/SGOT) 15, Alanine Aminotransferase (ALT/SGPT) 35, Alkaline Phosphatase 230H, YN-Oge-P-Type Natriuretic Peptide 360H, Total Protein 7.1, Albumin 3.5, Albumin/Globulin Ratio 1.0L 03/08/21 12:09: Anion Gap 10, Glomerular Filtration Rate > 60.0, Calcium Level 9.9, Magnesium Level 2.0 CBC/BMP Laboratory Tests 03/08/21 05:20 03/08/21 12:09 Microbiology Microbiology 03/08/21 Respiratory Virus Panel (PCR) (TIFFANIE) - Final, Complete 03/06/21 Respiratory Virus Panel (PCR) (TIFFANIE) - Final, Complete Discharge Medications Scheduled Amlodipine Besylate (Amlodipine Besylate) 5 Mg Tablet, 5 MG PO DAILY, (Reported) Aspirin (Aspirin EC) 81 Mg Tablet.dr, 81 MG PO DAILY, (Reported) Atorvastatin Calcium (Atorvastatin Calcium) 40 Mg Tablet, 40 MG PO QPM, (Repo rted) Cetirizine HCl (Cetirizine HCl) 10 Mg Tablet, 10 MG PO DAILY, (Reported) Doxepin HCl (Doxepin HCl) 10 Mg Capsule, 10 MG PO QHS, (Reported) Doxycycline Monohydrate (Doxycycline) 100 Mg Capsule, 100 MG PO BID Duloxetine Hcl (Cymbalta) 30 Mg Capsule.dr, 60 MG PO DAILY Duloxetine Hcl (Cymbalta) 60 Mg Capsule.dr, 1 CAP PO DAILY Hydroxyzine HCl (Hydroxyzine HCl) 50 Mg Tablet, 100 MG PO QHS, (Reported) Ipratropium/Albuterol Sulfate (Combivent Respimat 20-100 Mcg) 4 Gm Mist.inhal, 1 PUFF INH QID Methylphenidate HCl (Methylphenidate HCl) 10 Mg Tablet, 10 MG PO BID, (Reported) Metoprolol Tartrate (Metoprolol Tartrate) 50 Mg Tablet, 50 MG PO BID, (Reported) Montelukast Sodium (Montelukast Sodium) 10 Mg Tablet, 10 MG PO DAILY, (Reported) Nicotine (Nicoderm Cq) 7 Mg/24 Hr Patch.td24, 1 PATCH TOP DAILY for smoking cessation Potassium Chloride (Potassium Chloride) 20 Meq Tab.er.prt, 1 TAB PO DAILY Scheduled PRN Albuterol Sulfate (Albuterol Sulfate Hfa) 8.5 Gm Hfa.aer.ad, 2 PUFFS INH QID PRN for WHEEZING, (Reported) Allergies Coded Allergies: No Known Allergies (Unverified , 03/16/20) GME ATTESTATION GME ATTESTATION My faculty preceptor for this patient encounter was physically present during the encounter and was fully available. All aspects of the patient interview, examination, medical decision making process, and medical care plan development were reviewed and approved by the faculty preceptor. The faculty preceptor is aware and concurs with the plan as stated in the body of this note and will attest to such by his/her cosignature. ATTENDING NOTE I, Dusty Albrecht MD, have independently examined this patient and performed my own physical exam while the residents and students were with me in the room, as well as reviewed the documentation and edited where necessary. I have discussed in detail with the resident / student the findings and plan of treatment as documented by the resident / student and edited their note. I agree with their findings and treatment plan and have edited their documentation. Total time spent on this discharge including coordination of care, review of chart, documentation, and actual patient contact is around 35 minutes MOSHE HAAS S-3 Mar 08, 2021 13:45 KATHLEEN DINH D.O. Mar 08, 2021 18:36 DUSTY ALBRECHT MD Mar 10, 2021 15:33
--- NOTE | 2021-03-08 21:04 | ECGEPIP ---
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 Order Number: [id number] Reading MD: Alexx Moreno Measurements Intervals Lewis Rate: 71 P: 65 SD: 140 QRS: 43 QRSD: 138 T: 210 QT: 468 QTc: 508 Interpretive Statements Normal sinus rhythm Possible Left atrial enlargement Left bundle branch block No significant change compared with 03/07/2021. Electronically Signed on 03-08-2021 21:03:32 EST by Alexx Moreno
--- NOTE | 2021-03-08 21:59 | ECHO ---
ECHOCARDIOGRAM DATE OF PROCEDURE: 03/08/2021 Age: 50 Gender: Female Height: 162 cm Weight: 70 kg REFERRING PHYSICIAN: Misael Jha M.D. INDICATION: Dyspnea MEASUREMENTS: IVS 1.3 LV 3.1 LVPW 1.3 LA 4.1 Aorta 3.2 Mitral E-wave velocity 127, A wave 142 E prime septal 5.6 E prime lateral 7.6 IVC 1.4 FINDINGS: The study is of acceptable technical quality. Underlying sinus rhythm with ventricular rate around 70 beats per minute and wide QRS complex. Left ventricle is normal size. Mild left ventricular hypertrophy is present. There is a subtle septal wall motion abnormality, I suspect most likely due to underlying conductive system disease. Overall EF is estimated at around 60%-65%. Right ventricle appears to have normal size and systolic function. Left atrium is at least mildly enlarged. The right atrium appears normal. The aortic valve is tricuspid. It is mildly sclerotic, but has preserved mobility. There is bioprosthetic valve in mitral position, it is a stented prosthesis. Based on 2D images, there appears to be normal function. The tricuspid valve appears normal. Pulmonic valve was not seen. No pericardial effusion is present. Inferior vena cava is normal size and appropriately collapses with inspiration, indicative of normal central venous pressure. Aortic root is normal. Aortic arch and abdominal aorta were poorly visualized. Doppler interrogation of aortic valve reveals mild insufficiency and trivial stenosis with mean gradient 10 mmHg. There is no mitral insufficiency. Unfortunately continues Doppler imaging of mitral inflow pattern was not performed and I cannot rule out mitral stenosis, but based on available views, it appears unlikely. There is mild tricuspid insufficiency. Calculated pulmonary artery pressure is in upper limits of normal values. Mitral inflow pattern and tissue Doppler imaging of mitral annulus revealed grade 1 diastolic dysfunction. CONCLUSIONS: 1. Study is of acceptable technical quality. Underlying sinus rhythm with wide QRS complex and ventricular rate approximately 70 bpm. 2. Normal LV size with mild LVH and preserved LV systolic function. Grade 1 diastolic dysfunction. 3. Aortic sclerosis resulting in trivial stenosis and mild insufficiency. 4. Stented bioprosthesis in mitral position with no insufficiency and likely no significant stenosis. 5. Normal central venous pressure and normal pulmonary artery pressure.
== END 2021-03-08 15:33 | disposition home or self-care (01) | DRG 137 ==
LOC: EDBD 19:36 → M ED 19:36 → M ED INP 23:11 → ENRESERV 03-07 14:00 → M PCU 03-07 15:57
PROVIDERS: ADMIT Family Medicine; ATTEND Family Medicine
DX: J69.0 Pneumonitis due to inhalation of food and vomit (principal); Q39.4 Esophageal web; J44.0 Chronic obstructive pulmonary disease with (acute) lower respiratory infection; I10 Essential (primary) hypertension; Z95.2 Presence of prosthetic heart valve; F41.9 Anxiety disorder, unspecified; F32.A Depression, unspecified; E78.5 Hyperlipidemia, unspecified; Z90.49 Acquired absence of other specified parts of digestive tract; F17.210 Nicotine dependence, cigarettes, uncomplicated; Z20.822 Contact with and (suspected) exposure to COVID-19; Z79.82 Long term (current) use of aspirin; Z79.899 Other long term (current) drug therapy; J44.1 Chronic obstructive pulmonary disease with (acute) exacerbation; I44.7 Left bundle-branch block, unspecified; F90.9 Attention-deficit hyperactivity disorder, unspecified type; E87.6 Hypokalemia